=== PATIENT | male | born 1975 | race Caucasian/White ===

== ENCOUNTER 2018-07-19 14:00 | Emergency (ER) | payer BC ==
[2018-07-19] MEDS ORDERED: NA CHLORIDE 0.9% 1,000 ML ONE (14:28)
[2018-07-19 14:34] LABS: Absolute Lymphocytes (CBC) 1.3 K/uL (0.7-4.9); Absolute Monocytes 0.8 K/uL (0.1-1.3); Absolute Neutrophil 4.1 K/uL (1.8-8.0); Basophils % 0.8 % (0-1.3); Eosinophils % 1.6 % (0-4.4); Hematocrit 44.7 % (39.6-49.0); Lymphocytes % 20.7 % (15.3-44.8); MPV 10.1 fL (7.6-11.3); Monocytes % 12.7 % (3.3-12.3)
--- NOTE | 2018-07-19 14:36 | RAD REPORT ---
EXAM DESCRIPTION: CT - Head Brain Wo Cont - 07/19/2018 2:29 pm CLINICAL HISTORY: CONFUSED Headache, drowsiness COMPARISON: No comparisons TECHNIQUE: All CT scans are performed using dose optimization technique as appropriate and may inclu de automated exposure control or mA/KV adjustment according to patient size. FINDINGS: No intracranial hemorrhage, hydrocephalus or extra-axial fluid collection.No areas of brai n edema or evidence of midline shift. The paranasal sinuses and mastoids are clear. The calvarium is intact. IMPRESSION: No acute intracranial abnormality.
[2018-07-19 14:37] LABS: Protime INR 1.09
[2018-07-19 14:52] LABS: ALT/SGPT 31 U/L (12-78); AST/SGOT 23 U/L (15-37); Albumin 4.3 g/dL (3.4-5.0); Alkaline Phosphatase 70 U/L (45-117); BUN Blood Urea Nitrogen 8 mg/dL (7-18); Bicarbonate 22 mmol/L (21-32); Bilirubin Direct < 0.1 mg/dL (0-0.2); Bilirubin Total 0.3 mg/dL (0.2-1.0); Glucose Level 117 mg/dL (74-106); Protein, Total 8.2 g/dL (6.4-8.2); Sodium Level 133 mmol/L (136-145)
[2018-07-19 15:50] LABS: Urine Blood NEGATIVE (NEG); Urine Glucose NEGATIVE (NEG); Urine Protein NEGATIVE (NEG)
[2018-07-19 15:53] LABS: Barbiturates NEGATIVE (NEGATIVE); Benzodiazepines NEGATIVE (NEGATIVE); Cocaine NEGATIVE (NEGATIVE); METHAMPHETAM NEGATIVE (NEGATIVE); Methadone NEGATIVE (NEGATIVE); Opiates NEGATIVE (NEGATIVE); Phencyclidine NEGATIVE (NEGATIVE); THC Cannibis NEGATIVE (NEGATIVE)
[2018-07-19] MEDS ORDERED: FOLIC ACID 1 MG, MULTIVITAMINS INJ 10 ML, THIAMINE HCL 100 MG in NA CHLORIDE 0.9% 1,000 ML IV ONE (16:00)
--- NOTE | 2018-07-19 17:31 | EDPHYS ---
Physician Documentation [facility] Name: Maurizio Frias Age: 43 yrs Sex: Male : 1975 Arrival Date: 07/19/2018 Time: 14:04 Bed 7 Private MD: ED Physician Martinez Vogt HPI: 07/19 14:54 This 43 yrs old Male presents to ER via EMS with complaints of AMS. rn 14:54 The patient presents with dysphasia. The patient presents with confusion. Onset: The rn symptoms/episode began/occurred just prior to arrival. Possible causes: alcohol. Current symptoms: In the emergency department the patient's symptoms have improved. It is unknown whether or not the patient has had similar symptoms in the past. EMS reports was at a pub, was served 1-2 drinks, then servers stated noticed appeared much more intoxicated and slurred speech/incoherent than expected, patient denies head injury/fall/drug use. Reports drinks beer frequently and recently having issues with his mother. Denies suicide attempt or ideation. EMS reports improving slowly and normal vitals. . Historical: - Allergies: 14:09 No Known Allergies; tw2 - Home Meds: 14:09 metoprolol tartrate Oral [Active]; Lisinopril Oral [Active]; Simvastatin Oral [Active]; tw2 - PMHx: 14:09 Hyperlipidemia; Hypertension; tw2 - Immunization history:: Adult Immunizations. - Social history:: Smoking status: . - Ebola Screening: : Patient denies travel to an Ebola-affected area in the 21 days before illness onset. - Family history:: not pertinent. - Hospitalizations: : No recent hospitalization is reported. ROS: 14:54 Constitutional: Negative for fever, chills, and weight loss, Eyes: Negative for injury, rn pain, redness, and discharge, ENT: Negative for injury, pain, and discharge, Neck: Negative for injury, pain, and swelling, Cardiovascular: Negative for chest pain, palpitations, and edema, Respiratory: Negative for shortness of breath, cough, wheezing, and pleuritic chest pain, Abdomen/GI: Negative for abdominal pain, nausea, vomiting, diarrhea, and constipation, MS/Extremity: Negative for injury and deformity, Skin: Negative for injury, rash, and discoloration, Neuro: Negative for headache, weakness, numbness, tingling, and seizure. Exam: 15:02 Constitutional: This is a well developed, well nourished patient who is awake, alert, rn and in no acute distress. Head/Face: Normocephalic, atraumatic. Eyes: Pupils equal round and reactive to light, extra-ocular motions intact. Lids and lashes normal. Conjunctiva and sclera are non-icteric and not injected. Cornea within normal limits. Periorbital areas with no swelling, redness, or edema. ENT: MMM Cardiovascular: Regular rate and rhythm with a normal S1 and S2. No pulse deficits. Respiratory: Lungs have equal breath sounds bilaterally, clear to auscultation. No increased work of breathing, no retractions or nasal flaring. Abdomen/GI: soft, non-tender Skin: Warm, dry Neuro: Awake and alert, GCS 15, oriented to person, place, time, and situation. Cranial nerves II-XII grossly intact. Motor strength 5/5 in all extremities. Sensory grossly intact. Cerebellar exam normal. Slurred slow speech. SOunds intoxicated. Vital Signs: 14:06 BP 119 / 83; Pulse 73; Resp 17; Temp 97.9(TE); Pulse Ox 95% on R/A; Weight 136.08 kg tw2 (R); Height 5 ft. 5 in. (165.10 cm); Pain 0/10; 15:10 BP 118 / 85; Pulse 72; Resp 17; Pulse Ox 97% ; bp 16:50 BP 106 / 69; Pulse 72; Resp 17; Pulse Ox 97% on R/A; tw2 17:38 BP 96 / 68; Pulse 76; Resp 14; Temp 98; Pulse Ox 97% ; bp 14:06 Body Mass Index 49.92 (136.08 kg, 165.10 cm) tw2 MDM: 14:05 Patient medically screened. rn 16:19 Differential Diagnosis: CVA, electrolyte abnormality, alcohol intoxication, volume rn depletion. Data reviewed: vital signs, nurses notes, lab test result(s), EKG, radiologic studies, and as a result, I will discharge patient. Counseling: I had a detailed discussion with the patient and/or guardian regarding: the historical points, exam findings, and any diagnostic results supporting the discharge/admit diagnosis, lab results, radiology results, the need for outpatient follow up, to return to the emergency department if symptoms worsen or persist or if there are any questions or concerns that arise at home. Response to treatment: the patient's symptoms have mildly improved after treatment. ED course: Pt with ETOH of 400, will allow to sober up and dc home after that. . 17:30 ED course: Pt more sober, has ride home that is here, recommend decreasing ETOH intake, rn and has f/u with Dr. Louise on sunday.. 07/19 14:05 Order name: Acetaminophen; Complete Time: 15:22 07/19 14:05 Order name: Basic Metabolic Panel; Complete Time: 15:22 07/19 14:05 Order name: CBC with Diff rn 07/19 14:05 Order name: ETOH Level; Complete Time: 15:22 07/19 14:05 Order name: Hepatic Function; Complete Time: 15:22 07/19 14:05 Order name: PT-INR; Complete Time: 14:54 07/19 14:05 Order name: Ptt, Activated; Complete Time: 14:54 07/19 14:05 Order name: Salicylate; Complete Time: 15:22 07/19 14:05 Order name: Urine Drug Screen; Complete Time: 17:32 07/19 14:05 Order name: EKG; Complete Time: 14:10 07/19 14:05 Order name: CT Head Brain wo Cont; Complete Time: 15:22 07/19 15:36 Order name: Urine Dipstick--Ancillary (enter results); Complete Time: 17:32 07/19 14:05 Order name: EKG - Nurse/Tech; Complete Time: 14:10 07/19 14:05 Order name: IV Saline Lock; Complete Time: 14:10 07/19 14:05 Order name: Labs collected and sent; Complete Time: 14:16 07/19 14:05 Order name: Urine Dipstick-Ancillary (obtain specimen); Complete Time: 16:10 rn Administered Medications: 14:16 Drug: NS 0.9% 1000 ml Route: IV; Rate: 1000 ml; Site: right antecubital; tw2 15:30 Follow up: IV Status: Completed infusion; IV Intake: 1000ml bp 16:08 Drug: Banana Bag - (NS 0.9% 1000 ml, foLIC Acid 1 mg, Thiamine 100 mg, Multivitamin 1 tw2 amp) Route: IV; Rate: calculated rate; Site: right antecubital; 17:40 Follow up: IV Status: Completed infusion; IV Intake: 1000ml bp Disposition: 07/19/18 17:31 Discharged to Home. Impression: Alcohol use, unspecified with intoxication. - Condition is Stable. - Discharge Instructions: Alcohol Intoxication. - Medication Reconciliation Form, Thank You Letter, Antibiotic Education, Prescription Opioid Use form. - Follow up: Private Physician; When: As needed; Reason: Recheck today's complaints, Re-evaluation by your physician. - Problem is new. - Symptoms have improved. Signatures: Dispatcher [employer] EDMS Martinez Vogt MD MD rn Wise, Tara, RN RN tw2 Ez Dickerson RN RN bp Corrections: (The following items were deleted from the chart) 15:02 14:54 Constitutional: Negative for fever, chills, and weight loss, rn rn 17:46 17:31 07/19/2018 17:31 Discharged to Home. Impression: Alcohol use, unspecified with bp intoxication. Condition is Stable. Forms are Medication Reconciliation Form, Thank You Letter, Antibiotic Education, Prescription Opioid Use. Follow up: Private Physician; When: As needed; Reason: Recheck today's complaints, Re-evaluation by your physician. Problem is new. Symptoms have improved. rn
--- NOTE | 2018-07-19 17:31 | ER ---
Nurse's Notes [facility] Name: Maurizio Frias Age: 43 yrs Sex: Male : 1975 Arrival Date: 07/19/2018 Time: 14:04 Bed 7 Private MD: Diagnosis: Alcohol use, unspecified with intoxication Presentation: 07/19 13:58 Presenting complaint: EMS states: pt was at [place], staff reports giving him 1 beer, tw2 then she gave him another one, he just kourtney went limp and started slurring speech, negative neuro exam, vs stable, 20g RIGHT ac, NS bolus going. Transition of care: patient was not received from another setting of care. Onset of symptoms was July 19, 2018. Risk Assessment: Do you want to hurt yourself or someone else? Patient reports no desire to harm self or others. Initial Sepsis Screen: Does the patient meet any 2 criteria? No. Patient's initial sepsis screen is negative. Does the patient have a suspected source of infection? No. Patient's initial sepsis screen is negative. Care prior to arrival: IV initiated. 20 GA, in the right antecubital area. 13:58 Method Of Arrival: EMS: [facility] tw2 13:58 Acuity: KATLYN 3 tw2 Triage Assessment: 14:07 General: Appears in no apparent distress. obese, Behavior is calm, cooperative. Pain: tw2 Denies pain. EENT: No signs and/or symptoms were reported regarding the EENT system. Neuro: Level of Consciousness is awake, alert, obeys commands, Oriented to person, place, situation, Enterostomal Therapy Nurse are equal bilaterally Moves all extremities. Full function Speech is slurred, Facial symmetry appears normal. Cardiovascular: Heart tones S1 S2 Capillary refill < 3 seconds Patient's skin is warm and dry. Respiratory: Airway is patent Respiratory effort is even, unlabored, Respiratory pattern is regular, symmetrical, Breath sounds are clear bilaterally. GI: No signs and/or symptoms were reported involving the gastrointestinal system. Abdomen is round non-distended, obese, Bowel sounds present X 4 quads. : No signs and/or symptoms were reported regarding the genitourinary system. Derm: No signs and/or symptoms reported regarding the dermatologic system. Musculoskeletal: Range of motion: intact in all extremities. Historical: - Allergies: 14:09 No Known Allergies; tw2 - Home Meds: 14:09 metoprolol tartrate Oral [Active]; Lisinopril Oral [Active]; Simvastatin Oral [Active]; tw2 - PMHx: 14:09 Hyperlipidemia; Hypertension; tw2 - Immunization history:: Adult Immunizations. - Social history:: Smoking status: . - Ebola Screening: : Patient denies travel to an Ebola-affected area in the 21 days before illness onset. - Family history:: not pertinent. - Hospitalizations: : No recent hospitalization is reported. Screenin:10 Abuse screen: Denies threats or abuse. Nutritional screening: No deficits noted. tw2 Tuberculosis screening: No symptoms or risk factors identified. Fall Risk None identified. Assessment: 14:09 Reassessment: see triage assessment. tw2 15:36 Reassessment: waiting for Banana bag from pharmacy at this time. tw2 15:42 Reassessment: Patient appears in no apparent distress at this time. No changes from tw2 previously documented assessment. Patient and/or family updated on plan of care and expected duration. Pain level reassessed. Patient is alert, oriented x 3, equal unlabored respirations, skin warm/dry/pink. 16:50 Reassessment: Patient appears in no apparent distress at this time. No changes from tw2 previously documented assessment. Patient and/or family updated on plan of care and expected duration. Pain level reassessed. Patient is alert, oriented x 3, equal unlabored respirations, skin warm/dry/pink. 17:36 Reassessment: PT AFFIRMS FAMILY EN ROUTE FOR TRANSPORT. AOx3, AMBULATORY WITH STEADY bp GAIT AND NO ATAXIA. PT PLACED IN LOBBY AND INSTRUCTED TO REMAIN AND WAIT FOR RIDE. Vital Signs: 14:06 BP 119 / 83; Pulse 73; Resp 17; Temp 97.9(TE); Pulse Ox 95% on R/A; Weight 136.08 kg tw2 (R); Height 5 ft. 5 in. (165.10 cm); Pain 0/10; 15:10 BP 118 / 85; Pulse 72; Resp 17; Pulse Ox 97% ; bp 16:50 BP 106 / 69; Pulse 72; Resp 17; Pulse Ox 97% on R/A; tw2 17:38 BP 96 / 68; Pulse 76; Resp 14; Temp 98; Pulse Ox 97% ; bp 14:06 Body Mass Index 49.92 (136.08 kg, 165.10 cm) tw2 ED Course: 13:58 Bed in low position. Call light in reach. Side rails up X2. monitoring analyst on. Pulse tw2 ox on. NIBP on. 14:04 Patient arrived in ED. tw2 14:05 Martinez Vogt MD is Attending Physician. rn 14:06 Triage completed. tw2 14:06 Arm band placed on. tw2 14:07 Clarita Bai, RN is Primary Nurse. tw2 14:10 EKG done, by manufacturing engineering technologist. reviewed by Martinez Vogt MD. sm3 14:16 Maintain EMS IV. Dressing intact. Good blood return noted. Site clean \T\ dry. Gauge \T\ tw 2 site: 20 g RIGHT ac. 14:18 Initial lab(s) drawn, by me, sent to lab. jb1 14:40 CT Head Brain wo Cont In Process Unspecified. EDMS 17:39 No provider procedures requiring assistance completed. IV discontinued, intact, bp bleeding controlled, No redness/swelling at site. Pressure dressing applied. Administered Medications: 14:16 Drug: NS 0.9% 1000 ml Route: IV; Rate: 1000 ml; Site: right antecubital; tw2 15:30 Follow up: IV Status: Completed infusion; IV Intake: 1000ml bp 16:08 Drug: Banana Bag - (NS 0.9% 1000 ml, foLIC Acid 1 mg, Thiamine 100 mg, Multivitamin 1 tw2 amp) Route: IV; Rate: calculated rate; Site: right antecubital; 17:40 Follow up: IV Status: Completed infusion; IV Intake: 1000ml bp Intake: 15:30 IV: 1000ml; Total: 1000ml. bp 17:40 IV: 1000ml; Total: 2000ml. bp Outcome: 17:31 Discharge ordered by . rn 17:38 Discharged to home via wheelchair, with family. bp 17:38 Condition: stable 17:38 Discharge instructions given to patient, Instructed on discharge instructions, follow up and referral plans. Demonstrated understanding of instructions, follow-up care. 17:46 Patient left the ED. bp Signatures: Dispatcher [employer] EDMS Kem Viveros jb1 Martinez Vogt MD MD rn Wise, Tara, RN RN tw2 Ez Dickerson RN RN bp Lizz Fleming sm3 Corrections: (The following items were deleted from the chart) 17:39 17:36 Reassessment: PT AFFIRMS FAMILY EN ROUTE FOR TRANSPORT. AOx3, AMBULATORY WITH bp STEADY GAIT AND NO ATAXIA bp
--- NOTE | 2018-07-20 09:03 | EKG ---
Test Date: 2018-07-19 Test Time: 14:10:20 Stitcher Hand: HAILEY MEASUREMENT RESULTS: Intervals: Rate: 72 WI: 212 QRSD: 104 QT: 406 QTc: 444 [place]: P: 13 WI: 212 QRS: -25 T: 41 INTERPRETIVE STATEMENTS: Sinus rhythm with 1st degree AV block Moderate voltage criteria for LVH, may be normal variant Borderline ECG No previous ECG available for comparison Electronically Signed On 07-20-18 09:00:57 CDT by Jason Majano
== END 2018-07-19 17:46 | disposition home or self-care (01) ==
LOC: ER 14:00
DX: F10.929 Alcohol use, unspecified with intoxication, unspecified (principal); E78.5 Hyperlipidemia, unspecified; I10 Essential (primary) hypertension
CPT/HCPCS: 36415; 70450; 80048; 80076; 80307; 80320; 80329; 81003; 85025; 85610; 85730; 93005; 96361; 96365; 96366; 99284; J3411; J7030

== ENCOUNTER 2022-09-22 08:30 | Inpatient (IN) | payer BC, SELFPAY ==
[2022-09-22] MEDS ORDERED: NITROGLYCERIN 1 GM PKT TD ONE (08:38)
[2022-09-22] MEDS ORDERED: FUROSEMIDE 40 MG/4 ML VIAL ONE (08:39)
[2022-09-22 08:45] LABS: Absolute Lymphocytes (CBC) 1.9 K/uL (0.7-4.9); Hematocrit 38.4 % (39.6-49.0); Lymphocytes % 8.8 % (15.3-44.8); MCV 77.7 fL (80-100); MPV 8.7 fL (7.6-11.3); Platelets 433 thou/uL (152-406); RBC Red Blood Cell Count 4.94 M/uL (4.33-5.43)
[2022-09-22 08:51] LABS: Protime INR 1.04
[2022-09-22 09:05] LABS: Albumin 4.3 g/dL (3.4-5.0); Bilirubin Direct 0.1 mg/dL (0-0.2); Bilirubin Indirect, Calculated 0.3 mg/dL (0.2-0.8); Bilirubin Total 0.4 mg/dL (0.2-1.0); Magnesium 1.6 mg/dL (1.6-2.4); Potassium 4.3 mEq/L (3.5-5.1)
--- NOTE | 2022-09-22 09:05 | RAD REPORT ---
EXAM DESCRIPTION: RAD - Chest Single View - 09/22/2022 8:51 am CLINICAL HISTORY: DYSPNEA COMPARISON: No comparisons FINDINGS: Lines: None. Lungs: Diffuse vascular engorgement and interstitial and airspace disease . Pleural: No significant pleural effusions or pneumothorax. Cardiac: Cardiomegaly appear Mediastinum: Within normal limits. Bones: No acute fractures. Other: None IMPRESSION: Widespread pulmonary opacities most likely representing pulmonary edema.
[2022-09-22 09:07] LABS: Troponin High Sensitivity 121.1 pg/mL (<58.9)
[2022-09-22 09:41] LABS: Arterial Blood Carboxyhemoglob 0.8 % (0-1.5); Blood Gas Oxyhemoglobin 83.5 % (94-97); Blood O2 Saturation 85.2 % (92-98.5)
--- NOTE | 2022-09-22 09:46 | ER ---
Nurse's Notes [facility] Name: Maurizio Frias Age: 47 yrs Sex: Male : 1975 Arrival Date: 09/22/2022 Time: 08:29 Bed 3 Private MD: Diagnosis: Hypoxic respiratory failure;Pulmonary edema Presentation: 09/22 08:32 Chief complaint: EMS states: 2 weeks SOB, showed up to work today and SOB got severe, iw his mother states over past week he gained weight , pt was 59% RA, was placed on CPAP per EMS up to 68%. Coronavirus screen: Client presents with at least one sign or symptom that may indicate coronavirus-19. Ebola Screen: Patient negative for fever greater than or equal to 101.5 degrees Fahrenheit, and additional compatible Ebola Virus Disease symptoms Patient denies exposure to infectious person. Patient denies travel to an Ebola-affected area in the 21 days before illness onset. No symptoms or risks identified at this time. Risk Assessment: Do you want to hurt yourself or someone else? Patient reports no desire to harm self or others. 08:32 Method Of Arrival: EMS: [facility] iw 08:32 Acuity: KATLYN 1 iw 08:34 Onset of symptoms was September 22, 2022. iw 08:35 Initial Sepsis Screen: Does the patient meet any 2 criteria? RR > 20 per min. HR > 90 iw bpm. Does the patient have a suspected source of infection?. Triage Assessment: 08:35 General: Behavior is anxious. Respiratory: Onset: The symptoms/episode began/occurred iw this morning. Historical: - Allergies: 08:45 No Known Allergies; iw - Home Meds: 08:33 amlodipine-benazepril 5-20 mg oral capsule 1 cap daily [Active]; chlorthalidone 50 mg ap3 Oral tablet 1 tab daily [Active]; carvedilol 25 mg oral tablet 1 tab 2 times per day [Active]; - PMHx: 08:34 Hyperlipidemia; Hypertension; iw - Immunization history:: Adult Immunizations unknown. - Social history:: Smoking status: . Screenin:[address] [facility] ED Fall Risk Assessment (Adult) Score/Fall Risk Level 0 - 2 = Low Risk. Abuse iw screen: Denies threats or abuse. Denies injuries from another. Nutritional screening: No deficits noted. Tuberculosis screening: No symptoms or risk factors identified. Assessment: 08:32 General: Appears distressed, uncomfortable, obese, Behavior is cooperative. Pain: iw Denies pain. Neuro: Level of Consciousness is awake, alert, obeys commands, Oriented to person, place, time, situation, Moves all extremities. Cardiovascular: Rhythm is sinus tachycardia. Respiratory: Reports shortness of breath at rest on exertion labored breathing Airway Respiratory effort is labored, using tripod position, Respiratory pattern is symmetrical, tachypnea Breath sounds with crackles bilaterally. the patient has severe shortness of breath. GI: Abdomen is round obese. : No signs and/or symptoms were reported regarding the genitourinary system. Derm: Skin is intact, Skin is diaphoretic. Musculoskeletal: Range of motion: intact in all extremities. 08:46 General: Appears. iw 08:51 Reassessment: pt symptoms have improved but not resolved, 93% on BiPAP, pt skin is dry, iw denies chest pain, requesting to take off mask, pt still with labored breathing, educated on need to keep mask on at this time, pt denies feeling claustrophobic. 09:36 Reassessment: Patient appears in no apparent distress at this time. pt remains on iw BiPAP, 400 ml urine out per urinal. 10:20 Reassessment: mother at bedside, pt remains on BiPAP. iw 11:05 Reassessment: BiPAP set at 14/6 80% FiO2 by RT. iw 12:32 Reassessment: pt standing up at bedside, assisted with urinal, 300 ml out , remains on iw BiPAP. Vital Signs: 08:31 BP 151 / 98; Pulse 119; Resp 35; Temp 97(TE); Pulse Ox 79% on BiPAP; iw 08:51 BP 153 / 94; Pulse 110; Resp 32; Pulse Ox 93% on BiPAP; iw 10:19 BP 135 / 84; Pulse 103; Resp 30 S; Pulse Ox 100% on BiPAP; iw 11:06 BP 130 / 89; Pulse 100; Resp 26; Pulse Ox 99% on BiPAP; iw Vitals: 09:03 Cardiac Rhythm Assessment Sinus tach. iw ED Course: 08:29 Patient arrived in ED. aa5 08:29 Ramon Barbosa MD is Attending Physician. rt 08:32 Arm band placed on. iw 08:34 Triage completed. iw 08:35 Initial lab(s) drawn, by me, sent to lab. Inserted saline lock: 20 gauge in right iw antecubital area, using aseptic technique. Blood collected. 08:38 Ely Cabrera, RN is Primary Nurse. iw 08:48 Patient has correct armband on for positive identification. Bed in low position. Call iw light in reach. Side rails up X2. Provided Education on: BiPAP. 08:53 XRAY Chest (1 view) In Process Unspecified. EDMS 09:00 Inserted saline lock: 22 gauge in left wrist, using aseptic technique. aa5 09:46 Fab Louise MD is Hospitalizing Provider. rt 10:12 SARS RAPID Sent. iw 13:02 No provider procedures requiring assistance completed. Patient admitted, IV remains in iw place. Administered Medications: 08:31 Drug: Furosemide IVP 40 mg Route: IVP; Site: right antecubital; iw 12:30 Follow up: Urine output 1200 ml; Response: No adverse reaction iw 08:46 Drug: Nitroglycerin Transdermal Ointment 2 % 1 inches Route: Transdermal; Site: aa5 anterior chest wall; Medication: 11:04 VIS not applicable for this client. iw Output: 12:30 Urine: 1200ml; Total: 1200ml. iw 13:02 Urine: 1200ml (Voided); Total: 2400ml. iw Outcome: 09:46 Decision to Hospitalize by Provider. rt 13:03 Admitted to ICU accompanied by nurse, accompanied by tech, family with patient, via iw stretcher, room 6, on monitor, with chart, Report called to EMELI Vizcarra 13:03 Condition: improved 13:03 Discharge instructions given to patient, family, Instructed on the need for admit. 13:31 Patient left the ED. iw Signatures: Dispatcher [employer] EDMS Ely Cabrera RN EMELI iw Neema Yepez RN RN aa5 Caitlyn Loco RN RN ap3 Ramon Barbosa MD MD rt Corrections: (The following items were deleted from the chart) 08:51 08:31 BP 151 / 98; Pulse 119bpm; Resp 35bpm; Pulse Ox 79% BiPAP; iw iw 11:12 11:06 Pulse 100bpm; Resp 26bpm; Pulse Ox 99% BiPAP; iw iw
--- NOTE | 2022-09-22 09:46 | EDPHYS ---
Physician Documentation [facility] Name: Maurizio Frias Age: 47 yrs Sex: Male : 1975 Arrival Date: 09/22/2022 Time: 08:29 Bed 3 Private MD: ED Physician Ramon Barbosa HPI: 09/22 08:42 This 47 yrs old Male presents to ER via EMS with complaints of Respiratory Distress. rt 08:42 Patient presents to the ED with respiratory distress. Patient has had a shortness of rt breath for the past about 2 weeks, but significantly worsened overnight. Denies any chest pain. EMS does report that he was very diaphoretic, stating that his oxygen saturations were in the mid 50s on room air, placed patient on CPAP. No meds were given. Denies other acute complaints. Symptoms are severe in severity, no other aggravating or alleviating factors.. Historical: - Allergies: 08:45 No Known Allergies; iw - Home Meds: 08:33 amlodipine-benazepril 5-20 mg oral capsule 1 cap daily [Active]; chlorthalidone 50 mg ap3 Oral tablet 1 tab daily [Active]; carvedilol 25 mg oral tablet 1 tab 2 times per day [Active]; - PMHx: 08:34 Hyperlipidemia; Hypertension; iw - Immunization history:: Adult Immunizations unknown. - Social history:: Smoking status: . ROS: 08:43 Constitutional: Negative for fever, chills, and weight loss, Abdomen/GI: Negative for rt abdominal pain, nausea, vomiting, diarrhea, and constipation, MS/Extremity: Negative for injury and deformity, Neuro: Negative for headache, weakness, numbness, tingling, and seizure, Psych: Negative for depression, anxiety, suicide ideation, homicidal ideation, and hallucinations. 08:43 Cardiovascular: Positive for edema, Negative for chest pain. 08:43 Respiratory: Positive for cough, shortness of breath. 08:43 Skin: Positive for diaphoresis, Negative for rash. Exam: 08:43 Head/Face: Normocephalic, atraumatic. Chest/axilla: Normal chest wall appearance and rt motion. Nontender with no deformity. No lesions are appreciated. Cardiovascular: Regular rate and rhythm with a normal S1 and S2. No gallops, murmurs, or rubs. Normal PMI, no JVD. No pulse deficits. Abdomen/GI: Soft, non-tender, with normal bowel sounds. No distension or tympany. No guarding or rebound. No evidence of tenderness throughout. Neuro: Awake and alert, GCS 15, oriented to person, place, time, and situation. Cranial nerves II-XII grossly intact. Motor strength 5/5 in all extremities. Sensory grossly intact. Cerebellar exam normal. Normal gait. Psych: Awake, alert, with orientation to person, place and time. Behavior, mood, and affect are within normal limits. 08:43 Constitutional: The patient appears diaphoretic, in obvious distress. 08:43 ECG was reviewed by the Attending Physician. 08:43 Respiratory: Crackles heard on all lung garcia, severe respiratory distress noted.. 08:43 Musculoskeletal/extremity: 3+ pitting bilateral lower extremity edema. 08:43 Skin: Pale, diaphoretic. 09:46 ECG was reviewed by the Attending Physician. rt Vital Signs: 08:31 BP 151 / 98; Pulse 119; Resp 35; Temp 97(TE); Pulse Ox 79% on BiPAP; iw 08:51 BP 153 / 94; Pulse 110; Resp 32; Pulse Ox 93% on BiPAP; iw 10:19 BP 135 / 84; Pulse 103; Resp 30 S; Pulse Ox 100% on BiPAP; iw 11:06 BP 130 / 89; Pulse 100; Resp 26; Pulse Ox 99% on BiPAP; iw MDM: 08:29 Patient medically screened. rt 09:46 Differential diagnosis: Pulmonary edema, pneumonia, pneumothorax, pulmonary embolism. rt Antibiotic administration: Not indicated, the patient does not have an appreciated infiltrate. Data reviewed: vital signs, nurses notes, lab test result(s), EKG, radiologic studies. Consideration of Admission/Observation Patient was admitted/placed on observation. Management of patient was discussed with the following: Primary Care Provider: Agrees to admit patient. I considered the following discharge prescriptions or medication management in the emergency department Medications were administered in the Emergency Department. See MAR. Independent interpretation of the following test(s) in the Emergency Department X-Ray: My interpretation is Pulmonary edema seen on interpretation of x-ray images. Test considered but Not performed: CT: Symptoms most likely consistent with pulmonary edema, very low suspicion for pulmonary embolism, CT angiogram not indicated. Care significantly affected by the following chronic conditions: Hypertension. Counseling: I had a detailed discussion with the patient and/or guardian regarding: the historical points, exam findings, and any diagnostic results supporting the discharge/admit diagnosis, lab results, radiology results, the need for further work-up and treatment in the hospital. Response to treatment: the patient's symptoms have markedly improved after treatment. 09/22 08:31 Order name: Basic Metabolic Panel; Complete Time: 09:13 rt 09/22 08:31 Order name: CBC with Diff rt 09/22 08:31 Order name: LFT's; Complete Time: 09:13 rt 09/22 08:31 Order name: Magnesium; Complete Time: 09:13 rt 09/22 08:31 Order name: NT PRO-BNP; Complete Time: 09:13 rt 09/22 08:31 Order name: Troponin HS; Complete Time: 09:13 rt 09/22 08:31 Order name: ABG rt 09/22 08:31 Order name: Lactate w/ 2H reflex if indic. rt 09/22 08:31 Order name: Protime (+inr); Complete Time: 09:13 rt 09/22 08:31 Order name: Ptt, Activated; Complete Time: 09:13 rt 09/22 08:33 Order name: Lactate w/ 2H reflex if indic.; Complete Time: 09:13 EDMS 09/22 08:40 Order name: Blood Culture Adult (2) iw 09/22 09:34 Order name: SARS RAPID rt 09/22 10:49 Order name: CBC Smear Scan EDMS 09/22 08:31 Order name: XRAY Chest (1 view); Complete Time: 09:13 rt 09/22 08:31 Order name: BIPAP rt 09/22 08:31 Order name: EKG; Complete Time: 08:32 rt 09/22 09:53 Order name: CONS Physician Consult EDMS 09/22 08:31 Order name: Cardiac monitoring; Complete Time: 08:38 rt 09/22 08:31 Order name: EKG - Nurse/Tech; Complete Time: 08:43 rt 09/22 08:31 Order name: IV Saline Lock; Complete Time: 08:38 rt 09/22 08:31 Order name: Labs collected and sent; Complete Time: 08:38 rt 09/22 08:31 Order name: O2 Per Protocol; Complete Time: 08:38 rt 09/22 08:31 Order name: O2 Sat Monitoring; Complete Time: 08:38 rt 09/22 08:31 Order name: Accucheck; Complete Time: 08:38 rt 09/22 08:31 Order name: IV Saline Lock - Large Bore; Complete Time: 08:38 rt 09/22 08:31 Order name: Vital Signs; Complete Time: 08:38 rt EC:43 Rate is 115 beats/min. Rhythm is regular, Sinus tachycardia with No ectopy, Motion rt artifact limits interpretation, LVH with repolarization abnormalities present. Left axis deviation noted. MD interval is normal. QRS interval is normal. QT interval is normal. No Q waves. 09:46 Rate is 110 beats/min. Rhythm is regular, Sinus tachycardia with No ectopy, LVH with rt repolarization abnormality. Left axis deviation noted. MD interval is normal. QRS interval is normal. QT interval is normal. No Q waves. Interpreted by me. Administered Medications: 08:31 Drug: Furosemide IVP 40 mg Route: IVP; Site: right antecubital; iw 12:30 Follow up: Urine output 1200 ml; Response: No adverse reaction iw 08:46 Drug: Nitroglycerin Transdermal Ointment 2 % 1 inches Route: Transdermal; Site: aa5 anterior chest wall; Disposition: 09:46 Critical Care:. rt Disposition Summary: 09/22/22 09:46 Hospitalization Ordered Hospitalization Status: Inpatient Admission rt Provider: Fab Louise rt Location: Intensive Care Unit rt Condition: Guarded rt Problem: new rt Symptoms: have improved rt Bed/Room Type: Standard rt Room Assignment: 6-(09/22/22 12:40) dw Diagnosis - Hypoxic respiratory failure rt - Pulmonary edema rt Forms: - Medication Reconciliation Form rt - SBAR form rt Critical care time excluding procedures: 09:46 Critical care time: Bedside Care: 30 minutes, Consultation: 10 minutes. Total time: 40 rt minutes Signatures: Dispatcher [employer] Hien Monique RN RN dw Williams, Irene, RN RN iw Calderon, Audri, RN RN aa5 Caitlyn Loco RN RN ap3 Ramon Barbosa MD MD rt Corrections: (The following items were deleted from the chart) 12:40 09:46 rt dw
[2022-09-22 10:28] LABS: SARS-CoV-2 Antigen Rapid Res Negative (Negative)
[2022-09-22 10:48] LABS: Anisocytosis 2+; Blood Morphology Comment NOTED (NOT SEEN); Platelet Estimate ADEQ; White Blood Cell Scan OK (OK)
--- NOTE | 2022-09-22 15:13 | P.HP ---
Certification for Inpatient Patient admitted to: Inpatient Practitioner: I am a practitioner with admitting privileges, knowledge of patient current condition, hospital course, and medical plan of care. Services: Services provided to patient in accordance with Admission requirements found in Title 42 Section 412.3 of the Code of Federal Regulations Patient History Date of Service: 09/22/22 Primary Care Provider: Aspen Reason for admission: acute chf exacerbation History of Present Illness: Patient has been having some shortness of breath He has some swelling in his legs. The patient was very short of breath this morning. The patient called ems Was found to have a spO2 in the 50% The patient was put on a bipap and brought to the ER. He was given lasix. Diueised well.. Is comfortable on a bipap at this pointm Allergies No Known Allergies Allergy (Unverified 09/22/22 10:07) Home Medications: Carvedilol [Coreg] 12.5 mg PO BID 09/22/22 Chlorthalidone 1 tab PO DAILY 09/22/22 Review of Systems 10-point ROS is otherwise unremarkable Respiratory: Shortness of Breath Cardiovascular: Edema Physical Examination - Vital Signs Temperature: 97 F Blood Pressure: 130/89 Pulse: 100 Respirations: 26 Pulse Ox (%): 80 - Physical Exam General: Alert, In no apparent distress HEENT: Atraumatic, PERRLA, Mucous membr. moist/pink, EOMI, Sclerae nonicteric Neck: Supple, 2+ carotid pulse no bruit, No LAD, Without JVD or thyroid abnormality Respiratory: Crackles/rales Cardiovascular: Regular rate/rhythm, Normal S1 S2, Edema Gastrointestinal: Normal bowel sounds, No tenderness Musculoskeletal: No tenderness Integumentary: No rashes Neurological: Normal gait, Normal speech, Normal strength at 5/5 x4 extr, Normal tone, Normal affect Lymphatics: No axilla or inguinal lymphadenopathy - Studies Laboratory Data (last 24 hrs) 09/22/22 09/22/22 09/22/22 08:35 08:35 08:35 WBC 21.80 H Hgb 11.1 L Hct 38.4 L Plt Count 433 H PT 11.4 INR 1.04 APTT 30.8 Sodium 133 L Potassium 4.3 BUN 16 Creatinine 1.20 Glucose 205 H Magnesium 1.6 Total Bilirubin 0.4 AST 21 ALT 22 Alkaline Phosphatase 81 Assessment and Plan - Problems (Diagnosis) (1) Acute exacerbation of CHF (congestive heart failure) Current Visit: Yes Status: Acute Plan: Will continue cpap and diuresis. Consult to Dr. Salinas. Will check an echocardiogram Qualifiers: Heart failure type: unspecified Qualified Code(s): I50.9 - Heart failure, unspecified (2) Obstructive sleep apnea (adult) (pediatric) Current Visit: Yes Status: Acute Plan: Will need to get his cpap settings. (3) Essential (primary) hypertension Current Visit: Yes Status: Acute Plan: restart his home medications (4) Mixed hyperlipidemia Current Visit: Yes Status: Acute Plan: swiitch from simvastatin to atorvastatin Discharge Plan: Home Plan to discharge in: Greater than 2 days - Advance Directives Does patient have a Living Will: No Does patient have a Durable POA for Healthcare: No - Code Status/Comfort Care Code Status Assessed: Yes Code Status: Full Code Physician Review: Patient Assessed, Agree with Above Assessment and Plan Critical Care: Yes Time Spent Managing Pts Care (In Minutes): 45
[2022-09-22] MEDS: FUROSEMIDE 40 MG/4 ML VIAL IV SCH (18:05)
[2022-09-22] MEDS: ATORVASTATIN 40 MG TAB PO SCH (20:07)
[2022-09-23] MEDS: FUROSEMIDE 40 MG/4 ML VIAL IV SCH ×3 (00:50→16:50)
[2022-09-23] MEDS: CHLORTHALIDONE 25 MG TAB PO SCH (08:21)
[2022-09-23] MEDS: AMLODIPINE 5 MG TAB PO SCH (08:22)
[2022-09-23] MEDS: BENAZEPRIL 20 MG TAB PO SCH (08:23)
[2022-09-23] MEDS ORDERED: CHLORTHALIDONE 25 MG TAB PO SCH (09:00)
[2022-09-23] MEDS ORDERED: CHLORTHALIDONE 50 MG PO SCH (09:00)
[2022-09-23] MEDS ORDERED: FUROSEMIDE 40 MG/4 ML VIAL IV SCH (09:00)
--- NOTE | 2022-09-23 10:00 | CON ---
Date of Consultation: 09/22/2022 Reason For Consultation: CHF exacerbation. History Of Present Illness: This is a 47-year-old male with history of hypertension, no known histor y of cardiac disease, who presented to the hospital with significant shortness of breath, lower extre mity edema. No orthopnea. Denies having any chest pain. Patient was hypoxic upon arrival to the em ergency room and then required BiPAP for a short period of time, and after IV Lasix, the patient stab ilized, admitted to ICU. I saw him by bedside and he definitely still has significant shortness of b reath, but maintaining acceptable oxygen saturation. Past Medical History: Hypertension. Medications: Refer reconciliation sheet for detailed list. Allergies: NO KNOWN DRUG ALLERGIES. Family History: No premature coronary artery disease or cancer. Social History: Does not smoke or drink. Does not use any drugs. Review of Systems: All systems reviewed and they were negative except as mentioned in the HPI. Physical Examination: Vital Signs: Reviewed. Head and Neck: Pupils are equal, reactive to light. Intact eye movements. No JVD. No cervical lym phadenopathy. Neck is supple. Thyroid is not enlarged. Lungs: Crackles bilaterally in both lung garcia. No accessory muscle use or muscle retraction. Heart: Regular rate, rhythm. Tachycardic with S3 gallop. Abdomen: Soft, nontender. Bowel sounds positive. No organomegaly. No masses or hernia. No rigidi ty or rebound. Extremities: Massive edema bilaterally. No clubbing, cyanosis. Intact pulses. Skin: No rashes. Neurologic: Alert, awake, oriented x3. No acute focal deficits appreciated. Investigations: BUN 16, creatinine 1.2. Troponin 121. NT-proBNP is 1032. Hemoglobin is 11.1. Assessment/recommendation: 1.Acute congestive heart failure, unknown status. He denies having any chest pain. Troponin is sli ghtly elevated. The patient is admitted to ICU. Change IV Lasix to 40 mg IV q.8 hours. Monitor BUN , creatinine, electrolytes, and obtain echocardiogram. 2.Elevated troponin. No chest pain. This is probably demand; however, ischemia workup will need to be implemented as the patient never had any history of heart failure before. 3.Hypertension. He is on home medication, and after diuresis, we will re-assess. SR/MODL Voice ID: [id number] Report ID: [id number]
--- NOTE | 2022-09-23 10:53 | P.PN ---
Subjective Date of Service: 09/23/22 Primary Care Provider: Aspen Chief Complaint: acute chf exacerbation Subjective: Improving approx 4lt of diuresis Review of Systems 10-point ROS is otherwise unremarkable Respiratory: SOB with Excertion Physical Examination - Vital Signs Temperature: 98.1 F Blood Pressure: 107/75 Pulse: 107 Respirations: 34 Pulse Ox (%): 93 - Physical Exam General: Alert, In no apparent distress HEENT: Atraumatic, PERRLA, EOMI Neck: Supple, JVD not distended Respiratory: Clear to auscultation bilaterally, Normal air movement Cardiovascular: Regular rate/rhythm, Normal S1 S2 Gastrointestinal: Normal bowel sounds, No tenderness Musculoskeletal: No tenderness Integumentary: No rashes Neurological: Normal speech, Normal tone, Normal affect Lymphatics: No axilla or inguinal lymphadenopathy Assessment And Plan - Current Problems (Diagnosis) (1) Acute exacerbation of CHF (congestive heart failure) Current Visit: Yes Status: Acute Plan: Will continue cpap and diuresis. Consult to Dr. Salinas. Will check an echocardiogram 09/23 Patient is improving. Will restart his carvedilol Qualifiers: Heart failure type: unspecified Qualified Code(s): I50.9 - Heart failure, unspecified (2) Obstructive sleep apnea (adult) (pediatric) Current Visit: Yes Status: Acute Plan: Will need to get his cpap settings. 09/23 patient has not been using his cpap. was diagnoised in 2015. (3) Essential (primary) hypertension Current Visit: Yes Status: Acute Plan: restart his home medications (4) Mixed hyperlipidemia Current Visit: Yes Status: Acute Plan: swiitch from simvastatin to atorvastatin Discharge Plan: Home Plan to discharge in: 24 Hours - Code Status/Comfort Care Code Status Assessed: No Physician Review: Patient Assessed, Agree with Above Assessment and Plan Critical Care: Yes Time Spent Managing PTS Care (In Minutes): 30
[2022-09-23] MEDS: carvediloL 12.5 MG TAB PO SCH ×2 (11:16→21:25)
[2022-09-23] MEDS: ATORVASTATIN 40 MG TAB PO SCH (20:25)
[2022-09-24] MEDS: FUROSEMIDE 40 MG/4 ML VIAL IV SCH ×2 (01:04→09:00)
[2022-09-24 07:18] LABS: Absolute Lymphocytes (CBC) 0.9 K/uL (0.7-4.9); Hematocrit 33.6 % (39.6-49.0); Lymphocytes % 9.6 % (15.3-44.8); MPV 8.3 fL (7.6-11.3); Platelets 282 thou/uL (152-406); RBC Red Blood Cell Count 4.54 M/uL (4.33-5.43)
[2022-09-24 07:33] LABS: Bilirubin Total 0.5 mg/dL (0.2-1.0); Magnesium 1.9 mg/dL (1.6-2.4); Protein, Total 8.8 g/dL (6.4-8.2)
[2022-09-24] MEDS: AMLODIPINE 5 MG TAB PO SCH (08:12)
[2022-09-24] MEDS: carvediloL 12.5 MG TAB PO SCH (08:13)
[2022-09-24] MEDS: CHLORTHALIDONE 25 MG TAB PO SCH (08:13)
[2022-09-24] MEDS: BENAZEPRIL 20 MG TAB PO SCH (08:13)
[2022-09-24] MEDS ORDERED: POTASSIUM 25 MEQ EFFERV TAB PO ONE (11:10)
--- NOTE | 2022-09-24 12:26 | P.PN ---
Subjective Date of Service: 09/24/22 Primary Care Provider: Aspen Chief Complaint: acute chf exacerbation Subjective: Improving approx 4lt of diuresis Review of Systems 10-point ROS is otherwise unremarkable Cardiovascular: Other (dizziness) Physical Examination - Vital Signs Temperature: 97.3 F Blood Pressure: 97/63 Pulse: 98 Respirations: 25 Pulse Ox (%): 93 - Physical Exam General: Alert, In no apparent distress HEENT: Atraumatic, PERRLA, EOMI Neck: Supple, JVD not distended Respiratory: Clear to auscultation bilaterally, Normal air movement Cardiovascular: Regular rate/rhythm, Normal S1 S2 Gastrointestinal: Normal bowel sounds, No tenderness Musculoskeletal: No tenderness Integumentary: No rashes Neurological: Normal speech, Normal tone, Normal affect Lymphatics: No axilla or inguinal lymphadenopathy Assessment And Plan - Current Problems (Diagnosis) (1) Acute exacerbation of CHF (congestive heart failure) Current Visit: Yes Status: Acute Plan: Will continue cpap and diuresis. Consult to Dr. Salinas. Will check an echocardiogram 09/24 decrease his diuresis to qday. Will await cardiac work up till tomorrow. Qualifiers: Heart failure type: unspecified Qualified Code(s): I50.9 - Heart failure, unspecified (2) Obstructive sleep apnea (adult) (pediatric) Current Visit: Yes Status: Acute Plan: Will need to get his cpap settings. 09/23 patient has not been using his cpap. was diagnoised in 2014. (3) Essential (primary) hypertension Current Visit: Yes Status: Acute Plan: restart his home medications (4) Mixed hyperlipidemia Current Visit: Yes Status: Acute Plan: swiitch from simvastatin to atorvastatin Discharge Plan: Home Plan to discharge in: 24 Hours - Code Status/Comfort Care Code Status Assessed: No Physician Review: Patient Assessed, Agree with Above Assessment and Plan Critical Care: No Time Spent Managing PTS Care (In Minutes): 20
[2022-09-24] MEDS ORDERED: ASPIRIN 81 MG CHEWABLE TABLET PO ONE (14:59)
--- NOTE | 2022-09-24 15:33 | EKG ---
Test Date: 2022-09-22 Test Time: 08:38:03 Music Executive: ALP MEASUREMENT RESULTS: Intervals: Rate: 115 [place]: 178 QRSD: 92 QT: 314 QTc: 434 [place]: P: 38 [place]: 178 QRS: -10 T: 74 INTERPRETIVE STATEMENTS: Sinus tachycardia Left ventricular hypertrophy with repolarization abnormality Abnormal ECG Compared to ECG 07/19/2018 14:10:20 Early repolarization now present Sinus rhythm no longer present First degree AV block no longer present Electronically Signed On 09-24-22 15:31:00 CDT by Gustavo Salinas
--- NOTE | 2022-09-24 15:48 | PN ---
Date of Progress Note: 09/24/2022 Subjective: Seen by bedside. His breathing is significantly better. Does not have any chest pain. Has mild orthopnea. Lower extremity edema has improved. Review of Systems: No chest pain. Mild shortness of breath on exertion. No nausea, vomiting, or diarrhea. All other s ystems were reviewed, they were negative. Objective: Vital Signs: Reviewed. Head and Neck: Pupils are equal, reactive to light. Intact eye movements. No JVD. No cervical lym phadenopathy. Neck is supple. Thyroid is not enlarged. Lungs: Clear to auscultation bilaterally. No rhonchi, wheezing, or crackles. No accessory muscle u se. Heart: Regular rate and rhythm. No extra sounds. Abdomen: Soft, nontender. Bowel sounds positive. No organomegaly. No masses or hernia. No rigidi ty or rebound. Extremities: Trace edema. No clubbing or cyanosis. Intact pulses. Skin: No rash. No nodule. Neurologic: Alert, awake, oriented x3. No acute focal deficits appreciated. Lymph Nodes: No cervical or axillary lymphadenopathy. Investigations: Labs reviewed. Assessment And Recommendations: 1.Acute congestive heart failure. Diuresed very well. However, his blood pressure is low now. I w ill stop his carvedilol, benazepril and the chlorthalidone to allow for diuresis with Lasix. Obtain echo tomorrow and reassess. 2.Elevated troponin. Plan for a stress test tomorrow and an echocardiogram. SR/MODL Voice ID: [id number] Report ID: [id number]
[2022-09-24] MEDS: ENOXAPARIN 40 MG/0.4 ML SQ SCH (16:22)
[2022-09-24] MEDS: ATORVASTATIN 40 MG TAB PO SCH (21:18)
[2022-09-24] MEDS: PANTOPRAZOLE 40MG TABLET PO SCH (21:19)
[2022-09-25 06:22] LABS: Absolute Lymphocytes (CBC) 1.1 K/uL (0.7-4.9); Hematocrit 31.8 % (39.6-49.0); Lymphocytes % 10.5 % (15.3-44.8); MCV 74.2 fL (80-100); MPV 8.3 fL (7.6-11.3); Platelets 284 thou/uL (152-406); RBC Red Blood Cell Count 4.28 M/uL (4.33-5.43)
[2022-09-25 06:47] LABS: Albumin 3.7 g/dL (3.4-5.0); Bilirubin Total 0.5 mg/dL (0.2-1.0); Protein, Total 8.3 g/dL (6.4-8.2)
[2022-09-25 06:49] LABS: Magnesium 1.9 mg/dL (1.6-2.4); Potassium 3.3 mEq/L (3.5-5.1)
[2022-09-25] MEDS ORDERED: REGADENOSON 0.4 MG/5 ML SYR IV ONE (07:34)
[2022-09-25] MEDS ORDERED: NA CHLORIDE 0.9% 250 ML IV ONE (08:11)
[2022-09-25] MEDS ORDERED: POTASSIUM 25 MEQ EFFERV TAB PO ONE (09:00)
[2022-09-25] MEDS ORDERED: NA CHLORIDE 0.9% 1,000 ML IV SCH (09:00)
[2022-09-25] MEDS ORDERED: FUROSEMIDE 40 MG/4 ML VIAL IV SCH (09:00)
--- NOTE | 2022-09-25 13:14 | EKG ---
Test Date: 2022-09-22 Test Time: 09:13:40 Leather Stretcher: ALP MEASUREMENT RESULTS: Intervals: Rate: 110 ID: [id number] QRSD: 92 QT: 346 QTc: 468 Champion: P: 33 ID: [id number] QRS: -14 T: 68 INTERPRETIVE STATEMENTS: Sinus tachycardia Left ventricular hypertrophy Anterolateral infarct, age undetermined Abnormal ECG Compared to ECG 09/22/2022 08:38:03 Myocardial infarct finding now present Early repolarization no longer present Electronically Signed On 09-25-22 13:11:43 CDT by Gustavo Salinas
--- NOTE | 2022-09-25 14:38 | P.PN ---
Subjective Date of Service: 09/25/22 Primary Care Provider: Aspen Chief Complaint: acute chf exacerbation Subjective: No new changes approx 4lt of diuresis Review of Systems 10-point ROS is otherwise unremarkable Physical Examination - Vital Signs Temperature: 98.1 F Blood Pressure: 118/75 Pulse: 99 Respirations: 21 Pulse Ox (%): 96 - Physical Exam General: Alert, In no apparent distress HEENT: Atraumatic, PERRLA, EOMI Neck: Supple, JVD not distended Respiratory: Clear to auscultation bilaterally, Normal air movement Cardiovascular: Regular rate/rhythm, Normal S1 S2 Gastrointestinal: Normal bowel sounds, No tenderness Musculoskeletal: No tenderness Integumentary: No rashes Neurological: Normal speech, Normal tone, Normal affect Lymphatics: No axilla or inguinal lymphadenopathy Assessment And Plan - Current Problems (Diagnosis) (1) Acute renal failure Current Visit: Yes Status: Acute Plan: He did recieve a lot of furosemide. He has gotten contrast for the stress test. The patient is being seen by Dr. Pina Qualifiers: Acute renal failure type: unspecified Qualified Code(s): N17.9 - Acute kidney failure, unspecified (2) Acute exacerbation of CHF (congestive heart failure) Current Visit: Yes Status: Acute Plan: Will continue cpap and diuresis. Consult to Dr. Salinas. Will check an echocardiogram 09/25 patient stress test pending Qualifiers: Heart failure type: unspecified Qualified Code(s): I50.9 - Heart failure, unspecified (3) Obstructive sleep apnea (adult) (pediatric) Current Visit: Yes Status: Acute Plan: Will need to get his cpap settings. 09/23 patient has not been using his cpap. was diagnoised in 2014. (4) Essential (primary) hypertension Current Visit: Yes Status: Acute Plan: restart his home medications (5) Mixed hyperlipidemia Current Visit: Yes Status: Acute Plan: swiitch from simvastatin to atorvastatin Discharge Plan: Home Plan to discharge in: 24 Hours - Code Status/Comfort Care Code Status Assessed: No Physician Review: Patient Assessed, Agree with Above Assessment and Plan Critical Care: Yes Time Spent Managing PTS Care (In Minutes): 30
[2022-09-25 15:17] LABS: Phosphorus 2.9 mg/dL (2.5-4.9); Uric Acid 12.7 mg/dL (3.5-7.2)
[2022-09-25 15:18] LABS: Magnesium 1.8 mg/dL (1.6-2.4); Potassium 3.4 mEq/L (3.5-5.1)
[2022-09-25] MEDS: PANTOPRAZOLE 40MG TABLET PO SCH (15:19)
[2022-09-25] MEDS: ENOXAPARIN 40 MG/0.4 ML SQ SCH (15:19)
[2022-09-25] MEDS: ASPIRIN 81 MG CHEWABLE TABLET PO SCH (15:19)
--- NOTE | 2022-09-25 15:22 | RAD REPORT ---
EXAM DESCRIPTION: NM - Rest Stress Cardiac Imaging - 09/25/2022 3:08 pm CLINICAL HISTORY: elevated troponin Chest pain. COMPARISON: <Comparisons> TECHNIQUE: The patient was administered approximately 10mCi of Tc 99m Sestamibi prior to resting SPE CT imaging of the heart. The patient was then administered approximately 30 mCi of Tc 99m Sestamibi f ollowing exercise or pharmacologic stress. Multiplanar SPECT images were reviewed. FINDINGS: Moderate sized area of mild stress-induced ischemia is seen involving the inferior wall. L arge fixed apex defect compatible with old infarction. The end diastolic volume is 124 ml, the end systolic volume is 61 ml, and the ejection fraction is 51 %. IMPRESSION: Moderate sized area of mild stress-induced ischemia involving the inferior wall. 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
[2022-09-25] MEDS ORDERED: MAGNESIUM SULFATE 1 gm IVPB 1 GM/100 ML BAG IV ONE (16:00)
[2022-09-25 16:15] LABS: Specific Gravity 1.018 (1.005-1.030); Urine Bacteria <20 /HPF (<20); Urine Bilirubin NEGATIVE (Negative); Urine Blood Negative (Negative); Urine Clarity Clear (Clear); Urine Color Light-Yellow (Yellow); Urine Glucose NEGATIVE (Negative); Urine Protein TRACE (Negative); Urine RBC <5 /HPF (None Seen); Urine Urobilinogen Normal (Normal); Urine pH 5.5 (5.0-7.0)
[2022-09-25 16:20] LABS: UR PROTEIN 24.3 mg/dL (<11.9); Urine Protein/Creatinine Ratio 0.13 ratio (<0.15)
[2022-09-25] MEDS: NA CHLORIDE 0.9% 1,000 ML IV SCH (16:27)
[2022-09-25] MEDS ORDERED: POTASS/SODIUM PHOSPHATE 1 PKT POWD.PACK PO ONE (17:00)
--- NOTE | 2022-09-25 21:00 | PN ---
Date of Progress Note: 09/25/2022 Subjective: Seen by bedside. Doing well. No shortness of breath. No chest pain. No nausea, vomit ing, or diarrhea. All other systems reviewed, they were negative. Objective: Vital Signs: Reviewed. Head and Neck: Pupils are equal, reactive to light. Intact eye movements. No JVD. No cervical lym phadenopathy. Neck is supple. Thyroid is not enlarged. Lungs: Clear to auscultation bilaterally. No rhonchi, wheezing, or crackles. No accessory muscle u se. Heart: Regular rate and rhythm. No extra sounds. Abdomen: Soft, nontender. Bowel sounds positive. No organomegaly. No masses or hernia. No rigidi ty or rebound. Extremities: No edema, clubbing, or cyanosis. Intact pulses. Skin: No rash. No nodule. Neurologic: Alert, awake, oriented x3. No acute focal deficits appreciated. Investigations: BUN 53, creatinine 2.02. Assessment And Recommendations: 1.Acute on chronic diastolic heart failure exacerbation. The patient was overdiuresed and then deve loped acute renal failure. Lasix was stopped completely and I gave a 250 bolus normal saline. Repea megan creatinine went down from 2.8 to 2.0 and his troponin peaked at 430. Stress test positive for in ferior ischemia. Hemoglobin is 10. acute on chronic diastolic heart failure exacerbation . Appears to be euvolemic now. Hold Lasix due to acute renal failure. 2.Acute renal failure due to dehydration and overdiuresis. Lasix was held and received fluids and c reatinine improved already and he is getting gentle hydration and reassess labs tomorrow. 3.Elevated troponin with positive stress test. Patient will need coronary angiogram. I will wait until his kidney function completely normalizes and continue statin, baby aspirin. SR/MODL Voice ID: [id number] Report ID: [id number]
[2022-09-25] MEDS: ATORVASTATIN 40 MG TAB PO SCH (21:06)
--- NOTE | 2022-09-26 02:45 | CON ---
Date of Consultation: 09/25/2022 Subjective: Acute kidney injury. The patient is admitted to ICU for acute congestive heart failure exacerbation. Patient was found to have elevated BUN and creatinine today. Nephrology consultation was requested for acute kidney injury. The patient was admitted with severe dyspnea. He was complai sathish of leg swelling. Over the last few days, the patient was treated with diuretic and legs edema h as improved. Shortness of breath also resolved. The patient was brought by EMS to the hospital, was found to have SpO2 in 50s. He was placed on BiPAP and started on Lasix for congestive heart failure . Today, Nephrology consultation was requested because his creatinine level was up to 2.80, BUN 54. Ye day, creatinine was 1.2, BUN 31, sodium 131, potassium 3.0, chloride 92, CO2 of 30, magnesium 1.9 . Review of Systems: Constitutional: The patient is feeling better. He denies fever, chills. Eyes: Denies vision changes. Ears, Nose, Mouth, and Throat: Denies sore throat, earache. Respiratory: Has some dyspnea with activity. Currently he is wheelchair-bound and bed-bound. He re julian in ICU. He is undergoing cardiac workup. GI: Denies nausea, vomiting. : Denies dysuria, hematuria. Extremities: He has some edema, which has improved. All other systems reviewed and all are negative. Past Medical History: Hypertension, obesity. Family History: No kidney disease in family. Social History: Denies tobacco. Denies drugs. Physical Examination: General: Patient is awake, alert, follows commands. Eyes: Anicteric sclerae. EOMI. Ears, Nose, Mouth, and Throat: Oral mucosa moist. No pallor. Neck: Supple. No bruits. Lungs: Diminished breath sounds at bases. Heart: S1, S2. Abdomen: Soft, benign. Extremities: Slight edema. Lab Work: Today showed sodium 129, potassium 3.4, chloride 94, CO2 27, BUN 53, creatinine 2.8 and 2. 02, glucose 147, uric acid 12.7. Urinalysis showed pH 5.5, urine specific gravity 1.018, ketones neg ative, blood negative, nitrites negative, RBC less than 5, WBC less than 5. Urine protein trace. Ur ine protein creatinine ratio 0.13. Renal ultrasound is pending. Impression And Plan: 1.Acute on chronic kidney injury secondary to diuretic affect in setting of congestive heart failure . The patient received IV Lasix. There is ongoing hyponatremia due to congestive heart failure. Co ntinue low-sodium diet and p.o. fluid restriction. Currently, the patient is on normal saline for ac [place] kidney injury. Plan is to titrate normal saline down. 2.Hypokalemia. Replacement for hyperkalemia was ordered. 3.Hyperuricemia secondary to diuretic affect. Monitor uric acid. The patient does not have gout. Recommend to evaluate uric acid. 4.Hyponatremia. Check TSH level and cortisol level. EB/MODL Voice ID: [id number] Report ID: [id number]
[2022-09-26] MEDS: PANTOPRAZOLE 40MG TABLET PO SCH (06:34)
[2022-09-26] MEDS: NA CHLORIDE 0.9% 1,000 ML IV SCH (06:35)
[2022-09-26 06:49] LABS: Absolute Lymphocytes (CBC) 0.8 K/uL (0.7-4.9); Hematocrit 32.6 % (39.6-49.0); Lymphocytes % 10.5 % (15.3-44.8); MCV 75.1 fL (80-100); MPV 8.4 fL (7.6-11.3); Platelets 269 thou/uL (152-406); RBC Red Blood Cell Count 4.34 M/uL (4.33-5.43)
--- NOTE | 2022-09-26 06:55 | ECHO ---
HEIGHT: 5 ft 6 in WEIGHT: 266 lb 0 oz DATE OF STUDY: 09/25/[address]: Fab Louise MD 2-DIMENSIONAL: YES M.MODE: YES DOPPLER: YES COLOR FLOW: YES TDS: YES PORTABLE: YES DEFINITY: BUBBLE STUDY: DIAGNOSIS: ACUTE CONGESTIVE HEART FAILURE CARDIAC HISTORY: CATHERIZATION: SURGERY: PROSTHETIC VALVE: PACEMAKER: MEASUREMENTS (cm) DIASTOLIC (NORMALS) SYSTOLIC (NORMALS) IVSd 1.1 (0.6-1.2) LA Diam 3.9 (1.9-4.0) LVEF 61% LVIDd 3.7 (3.5-5.7) LVIDs 2.5 (2.0-3.5) %FS 32% LVPWd 1.1 (0.6-1.2) Ao Diam 2.9 (2.0-3.7) 2 DIMENSIONAL ASSESSMENT: RIGHT ATRIUM: NORMAL LEFT ATRIUM: NORMAL RIGHT VENTRICLE: NORMAL LEFT VENTRICLE: NORMAL TRICUSPID VALVE: NORMAL MITRAL VALVE: NORMAL PULMONIC VALVE: NORMAL AORTIC VALVE: MILD AORTIC INSUFFICIENCY PERICARDIAL EFFUSION: NONE AORTIC ROOT: NORMAL LEFT VENTRICULAR WALL MOTION: NORMAL DOPPLER/COLOR FLOW: MILD AORTIC INSUFFICIENCY COMMENTS: 1. NORMAL LEFT VENTRICULAR EJECTION FRACTION 60-65% 2. NORMAL WALL MOTION 3. GRADE I DIASTOLIC DYSFUNCTION 4. MILD AORTIC INSUFFICIENCY TECHNOLOGIST: JERRI MCKEON
[2022-09-26 07:01] LABS: Bilirubin Total 0.6 mg/dL (0.2-1.0); Potassium 3.8 mEq/L (3.5-5.1); Protein, Total 8.6 g/dL (6.4-8.2)
[2022-09-26 07:02] LABS: Albumin 3.9 g/dL (3.4-5.0)
[2022-09-26] MEDS ORDERED: POTASSIUM 25 MEQ EFFERV TAB PO ONE (07:08)
--- NOTE | 2022-09-26 07:20 | RAD REPORT ---
EXAM DESCRIPTION: US - Abdomen Pelvis Scan US - 09/26/2022 5:42 am CLINICAL HISTORY: Acute renal injury COMPARISON: 2014 FINDINGS: The right kidney 11 centimeters with a normal echotexture. No hydronephrosis Bladder grossly normal Left kidney 12 centimeters normal echotexture. No hydronephrosis. The velocity of the right renal artery 157 centimeters seconds. The velocity of the left renal artery 115 centimeters/second. Renal artery/aorta ratio is within normal limits IMPRESSION: No sonographic evidence of renal arterial stenosis
--- NOTE | 2022-09-26 08:27 | P.PN ---
Subjective Date of Service: 09/26/22 Primary Care Provider: Aspen Chief Complaint: acute chf exacerbation creatine is almost back to baseline Review of Systems 10-point ROS is otherwise unremarkable Physical Examination - Vital Signs Temperature: 97.4 F Blood Pressure: 126/78 Pulse: 97 Respirations: 20 Pulse Ox (%): 100 - Physical Exam General: Alert, In no apparent distress HEENT: Atraumatic, PERRLA, EOMI Neck: Supple, JVD not distended Respiratory: Clear to auscultation bilaterally, Normal air movement Cardiovascular: Regular rate/rhythm, Normal S1 S2 Gastrointestinal: Normal bowel sounds, No tenderness Musculoskeletal: No tenderness Integumentary: No rashes Neurological: Normal speech, Normal tone, Normal affect Lymphatics: No axilla or inguinal lymphadenopathy Assessment And Plan - Current Problems (Diagnosis) (1) Acute renal failure Current Visit: Yes Status: Acute Plan: He did recieve a lot of furosemide. He has gotten contrast for the stress test. The patient is being seen by Dr. Pina 4.15 creatine has recovered to baseline Qualifiers: Acute renal failure type: unspecified Qualified Code(s): N17.9 - Acute kidney failure, unspecified (2) Acute exacerbation of CHF (congestive heart failure) Current Visit: Yes Status: Acute Plan: Will continue cpap and diuresis. Consult to Dr. Salinas. Will check an echocardiogram 09/25 patient stress test pending Qualifiers: Heart failure type: unspecified Qualified Code(s): I50.9 - Heart failure, unspecified (3) Obstructive sleep apnea (adult) (pediatric) Current Visit: Yes Status: Acute Plan: Will need to get his cpap settings. 09/23 patient has not been using his cpap. was diagnoised in 2014. (4) Essential (primary) hypertension Current Visit: Yes Status: Acute Plan: restart his home medications (5) Mixed hyperlipidemia Current Visit: Yes Status: Acute Plan: swiitch from simvastatin to atorvastatin Discharge Plan: Home Plan to discharge in: 24 Hours - Code Status/Comfort Care Code Status Assessed: No Physician Review: Patient Assessed, Agree with Above Assessment and Plan Critical Care: No Time Spent Managing PTS Care (In Minutes): 25
--- NOTE | 2022-09-26 08:40 | TREADPHA ---
DX: ELEVATED TROPONIN Date of Study: 09/22/2022 Ht: 5' 6 " Wt: 266 lb 0 oz Consulting Physician: DAREN MEDICATIONS: ASPIRIN, LIPITOR, LOVENOX, PROTONIX HISTORY: 47 YEAR OLD MALE WITH COMPLAINTS OF CHEST PAIN. HISTORY OF ACID REFLUX, HYPERLIPIDEMIA, HYPERTENSION, NON SMOKER, OCCASIONAL DRINKER. PHYSICIAL EXAMINATION: RESTING B.P.: 106/63 RESTING H.R.: 96 RESTING EKG: OBDULIA SINUS RHYTHM PROTOCOL: PHARMACOLOGIC EXERCISE TIME: 3:30 B.P. AT [place]AK STRESS: 89/67 IMPRESSION: LEXISCAN INJECTED, FOLLOWED BY CARDIOLITE PER PROTOCOL. SEE NUCLEAR MEDICINE REPORT. NO SUPRAVENTRICULAR TACHYCARDIA, VENTRICULAR TACHYCARDIA, PREMATURE ATRIAL COMPLEXES, PREMATURE VENTRICULAR COMPLEXES. PATIENT REPORTS NO CHEST PAIN. NO ELECTROCARDIOGRAM CHANGES WITH LEXISCAN.
[2022-09-26] MEDS: ENOXAPARIN 40 MG/0.4 ML SQ SCH (09:33)
[2022-09-26] MEDS: ASPIRIN 81 MG CHEWABLE TABLET PO SCH (09:34)
[2022-09-26] MEDS ORDERED: carvediloL 12.5 MG TAB PO ONE (09:46)
[2022-09-26] MEDS: AMLODIPINE 5 MG TAB PO SCH (10:55)
[2022-09-26] MEDS: BENAZEPRIL 20 MG TAB PO SCH (10:55)
--- NOTE | 2022-09-26 11:49 | RAD REPORT ---
EXAM DESCRIPTION: Chary Single View09/26/2022 11:40 am CLINICAL HISTORY: Shortness of breath COMPARISON: September 22 September 22, 2022 FINDINGS: Bilateral pulmonary opacities have partially resolved. Heart remains enlarged IMPRESSION: Improvement in pulmonary edema
[2022-09-26 12:06] LABS: Hepatitis B Core IgM Nonreactive (Nonreactive); Hepatitis B surface AG Interp. Nonreactive (Nonreactive); Hepatitis C Virus Ab Nonreactive (Nonreactive)
--- NOTE | 2022-09-26 13:41 | PN ---
Date of Progress Note: 09/26/2022 Subjective: The patient was admitted to the hospital with acute kidney injury, hyponatremia. His ac yuki kidney injury was prerenal. The patient was admitted, that he was taking chlorthalidone. The lyn steward had nausea, no vomiting. The patient was seen by Cardiology. Stress test was done yesterday. The patient on IV fluids. Physical Examination: Vital Signs: Blood pressure 126/78, pulse of 97, afebrile. Chest: Clear to auscultation. Heart: S1, S2. Regular. Abdomen: Soft, nontender. Extremity: Trace edema. Neurologic: Alert. No focality. Laboratory Data: WBC 8, hemoglobin of 10. Sodium 130, potassium 3.8, bicarb 27, BUN 40, creatinine 1.3, GFR of 66, uric acid 12.7, calcium 9.4, albumin 3.9. Urinalysis, PC ratio 0.1, negative for inf ection. Serology still pending. Stress test was done yesterday. Renal ultrasound was done and showing 11/12 cm, no hydronephrosis. Current Medications: The patient on include carvedilol, aspirin, amlodipine, Lovenox, pantoprazole, IV fluid normal saline at 50 per hour. Assessment And Plan: 1.Acute kidney injury, multifactorial, secondary to prerenal, poor perfusion ATN/cardiorenal, improv ed significantly. Currently, GFR above 60. I am going to continue IV fluid. I am going to get ches t x-ray for better evaluation of the fluid status. 2.Obstructive uropathy has been ruled out. 3.Hyponatremia secondary to depletional, superimposed with chlorthalidone intake, recovered, current ly sodium above 130. I am going to keep holding chlorthalidone and we will continue IV fluid and rep eat chest x-ray to evaluate on the IV fluid. 4.Hypokalemia, hypomagnesemia. We will continue supplement. 5.Hyperuricemia. I am going to check his uric acid for tomorrow and we will follow up the patient. After the chest x-ray evaluation, the patient will be cleared from the Renal standpoint for discharg e planning to follow up in the office in 2-3 weeks. MIKAELA/YAKELIN Voice ID: [id number] Report ID: [id number]
[2022-09-26] MEDS: carvediloL 12.5 MG TAB PO SCH (19:44)
[2022-09-26] MEDS: ATORVASTATIN 40 MG TAB PO SCH (20:37)
[2022-09-27 05:32] VITALS: BMI 33.7
[2022-09-27] MEDS: carvediloL 12.5 MG TAB PO SCH ×2 (05:43→18:02)
[2022-09-27] MEDS: ASPIRIN 81 MG CHEWABLE TABLET PO SCH (05:43)
[2022-09-27] MEDS: PANTOPRAZOLE 40MG TABLET PO SCH (05:52)
[2022-09-27] MEDS ORDERED: NA CHLORIDE 0.9% 1,000 ML IV SCH ×2 (06:00)
[2022-09-27 06:06] LABS: Albumin 3.7 g/dL (3.4-5.0); Magnesium 1.9 mg/dL (1.6-2.4); Phosphorus 2.6 mg/dL (2.5-4.9); Potassium 4.1 mEq/L (3.5-5.1); Uric Acid 9.6 mg/dL (3.5-7.2)
[2022-09-27] MEDS: ENOXAPARIN 40 MG/0.4 ML SQ SCH (08:18)
--- NOTE | 2022-09-27 08:47 | P.PN ---
Subjective Date of Service: 09/27/22 Primary Care Provider: Aspen Chief Complaint: acute chf exacerbation Subjective: No new changes plans for cardiac cath this morning Review of Systems 10-point ROS is otherwise unremarkable Physical Examination - Vital Signs Temperature: 98.2 F Blood Pressure: 117/61 Pulse: 87 Respirations: 20 Pulse Ox (%): 22 - Physical Exam General: Alert, In no apparent distress HEENT: Atraumatic, PERRLA, EOMI Neck: Supple, JVD not distended Respiratory: Clear to auscultation bilaterally, Normal air movement Cardiovascular: Regular rate/rhythm, Normal S1 S2 Gastrointestinal: Normal bowel sounds, No tenderness Musculoskeletal: No tenderness Integumentary: No rashes Neurological: Normal speech, Normal tone, Normal affect Lymphatics: No axilla or inguinal lymphadenopathy Assessment And Plan - Current Problems (Diagnosis) (1) Acute exacerbation of CHF (congestive heart failure) Current Visit: Yes Status: Acute Plan: Will continue cpap and diuresis. Consult to Dr. Salinas. Will check an echocardiogram 09/27 Plans for cath today Qualifiers: Heart failure type: unspecified Qualified Code(s): I50.9 - Heart failure, unspecified (2) Acute renal failure Current Visit: Yes Status: Acute Plan: He did recieve a lot of furosemide. He has gotten contrast for the stress test. The patient is being seen by Dr. Pina 4.15 creatine has recovered to baseline Qualifiers: Acute renal failure type: unspecified Qualified Code(s): N17.9 - Acute kidney failure, unspecified (3) Obstructive sleep apnea (adult) (pediatric) Current Visit: Yes Status: Acute Plan: Will need to get his cpap settings. 09/23 patient has not been using his cpap. was diagnoised in 2015. (4) Essential (primary) hypertension Current Visit: Yes Status: Acute Plan: restart his home medications (5) Mixed hyperlipidemia Current Visit: Yes Status: Acute Plan: swiitch from simvastatin to atorvastatin Discharge Plan: Home Plan to discharge in: 24 Hours - Code Status/Comfort Care Code Status Assessed: No Physician Review: Patient Assessed, Agree with Above Assessment and Plan Critical Care: No Time Spent Managing PTS Care (In Minutes): 20
[2022-09-27] MEDS: AMLODIPINE 5 MG TAB PO SCH (09:00)
[2022-09-27] MEDS: BENAZEPRIL 20 MG TAB PO SCH (09:00)
[2022-09-27] MEDS ORDERED: MAGNESIUM SULFATE 1 gm IVPB 1 GM/100 ML BAG IV ONE (09:55)
--- NOTE | 2022-09-27 14:50 | PN ---
Date of Progress Note: 09/27/2022 Subjective: The patient was admitted with acute kidney injury, non-ST elevation. The patient planne d for cardiac cath today. The patient's kidney injury has been improved significantly. Blood pressu re stable. IV fluid continued. Physical Examination: Vital Signs: Blood pressure 110/73, pulse of 88. Chest: Clear to auscultation. Heart: S1, S2. Regular. Abdomen: Soft, nontender. Extremities: No edema. Neurologic: Alert. No focality. Laboratory Data: Hemoglobin of 10. Sodium 131, potassium 4.1, bicarb 27, BUN 27, creatinine 1, GFR of 84, calcium of 9.1, uric acid 9.6, magnesium 1.9. Serum electrophoresis still pending. Cortisol 15. TSH 1.2. Urinalysis; specific gravity 1.018, PC ratio 0.1, urine sodium of 78. Current Medications: The patient on include; 1.Lovenox. 2.Aspirin. 3.Amlodipine 5 mg daily. 4.Atorvastatin. 5.Benazepril was started yesterday at 20 mg. 6.Carvedilol 12.5 b.i.d. 7.Pantoprazole. 8.Normal saline. Assessment And Plan: 1.Acute kidney injury secondary to prerenal. Normal size kidney. Continued to recover. The patien t planned for a cardiac cath. Given the acute kidney injury, I am going to continue IV fluid for the time being and to continue 10 hours after the cardiac cath. Hold benazepril for the time being and we will continue to monitor. 2.Hypertension, controlled, optimal. Given the exposure to contrast, we will minimize the risk by h olding benazepril and continue IV hydration. 3.Clq-RY-wxwkmubxy myocardial infarction. Plan for cardiac cath. Follow up with Cardiology. Rachel nue IV fluids 10 hours after catheterization. Repeat chemistry 24 to 48 hours and 2 weeks. 4.Hyponatremia, depletional, recovered, resolved. 5.Hypokalemia, hypomagnesemia. We will supplement. MARYAN Voice ID: [id number] Report ID: [id number]
[2022-09-27] MEDS: ATORVASTATIN 40 MG TAB PO SCH (20:25)
[2022-09-28 05:22] LABS: Albumin 3.7 g/dL (3.4-5.0); Phosphorus 3.5 mg/dL (2.5-4.9)
[2022-09-28] MEDS: ASPIRIN 81 MG CHEWABLE TABLET PO SCH (05:45)
[2022-09-28] MEDS: carvediloL 12.5 MG TAB PO SCH (05:45)
[2022-09-28] MEDS: ENOXAPARIN 40 MG/0.4 ML SQ SCH (06:03)
[2022-09-28] MEDS ORDERED: MIDAZOLAM HCL 2 MG/2 ML INJ ONE (06:17)
[2022-09-28] MEDS ORDERED: FENTANYL CITR 100 MCG/2 ML ONE (06:17)
[2022-09-28] MEDS ORDERED: HEPARIN 5000 UNIT/ML 1 ML VIAL ONE (06:17)
[2022-09-28] MEDS ORDERED: HEPA 1000U/500MLS 2,000 UNIT/1,000 ML BAG IV ONE (06:17)
[2022-09-28] MEDS ORDERED: HEPARIN 10,000 UNIT/10 ML VIAL IV ONE (06:18)
[2022-09-28] MEDS ORDERED: CLOPIDOGREL 75 MG TABLET ONE (06:18)
[2022-09-28] MEDS ORDERED: NITROGLYCERIN 100 MCG/ML SYR (for cath lab use only) IV ONE (06:18)
[2022-09-28] MEDS ORDERED: TICAGRELOR 90 MG TABLET PO ONE (06:18)
[2022-09-28] MEDS ORDERED: ASPIRIN 325 MG TAB ONE (06:18)
[2022-09-28] MEDS ORDERED: VERAPAMIL HCL 10 MG/4 ML VIAL IV ONE (06:18)
[2022-09-28] MEDS ORDERED: LIDOCAINE 1% 20 ML MDV ONE (06:18)
[2022-09-28] MEDS ORDERED: ATROPINE SULF 1 MG/10 ML SYR IV ONE (06:18)
[2022-09-28] MEDS ORDERED: NITROGLYCERIN/D5W 25 MG/250 ML BTL IV ONE (06:18)
[2022-09-28] MEDS ORDERED: NA CHLORIDE 0.9% 500 ML ONE (07:32)
[2022-09-28] MEDS ORDERED: Phenylephrine HCl 10 MG/ML 1 ML VIAL ONE (08:06)
--- NOTE | 2022-09-28 08:51 | OP ---
Date of Procedure: 09/28/2022 Surgeon: HARI MERCEDES Procedures Performed: 1.Selective coronary angiogram. 2.Left heart catheterization. 3.Failed PCI attempt of totally occluded mid LAD stenosis. Indication: 1.Acute heart failure. 2.Non-ST elevation myocardial infarction and positive stress test. Access: Right radial artery 6-Iraqi closed with TR band. Complications: None. Bleeding: Less than 20 mL. Description Of Procedure: After risks, benefits, alternatives were explained, the patient agreed to procedure and signed informed consent. The patient was brought into the cardiac catheterization [facility], prepped and draped in the usual sterile fashion. Then, I accessed right radial artery using pediatric micropuncture kit, placed 6-Iraqi Slender sheath and took 5-Iraqi Melrose 4.0 catheter into the aortic root, engaged left main and then I took a 6-Iraqi JL3.5 catheter, engaged the left main and took standard views, and using the Melrose catheter, engaged the RCA, took standard views, and then the catheter was pushed into the LV over the wire, measured the LVEDP and pullback did not record an y gradient. Then, I took a 6-Iraqi EBU3.5 guide into the aortic root over a J-wire, engaged the lef t main. Gave systemic heparin to assure ACT level above 250. I took short Run-Through wire into the LAD and tried to cross the mid LAD stenosis and I could not pass wire, so procedure aborted. Then, I took the wire out, the guide out, and sheath and placed TR band with good hemostasis. Findings: 1.Left main is large and normal. 2.LAD; proximal 70% and the mid HOSIERY LOOPER 100%. 3.Left circumflex is very large vessel with proximal 40% and mid OM 40%. 4.RCA; large vessel and dominant, proximal 50%, mid diffuse 30% to 40% and gives collaterals to the LAD. 5.LVEDP is borderline at 30 mmHg. Conclusion: 1.Severe LAD disease with mid HOSIERY LOOPER, failed PCI, but with collaterals from the right side. 2.Moderate coronary artery disease elsewhere. Recommendations: Single-vessel CABG. SR/MODL Voice ID: [id number] Report ID: [id number]
[2022-09-28] MEDS: AMLODIPINE 5 MG TAB PO SCH (09:15)
[2022-09-28] MEDS: PANTOPRAZOLE 40MG TABLET PO SCH (09:16)
[2022-09-28] MEDS ORDERED: NA CHLORIDE 0.9% 1,000 ML IV SCH (12:00)
--- NOTE | 2022-09-28 12:16 | P.DS ---
Admission Date: 09/22/22 Discharge Date: 09/28/22 Primary Care Provider: Aspen Disposition: ROUTINE DISCHARGE Reason for Admission: acute chf exacerbation - Problems (1) Acute exacerbation of CHF (congestive heart failure) Current Visit: Yes Status: Acute Qualifiers: Heart failure type: unspecified Qualified Code(s): I50.9 - Heart failure, unspecified (2) Acute renal failure Current Visit: Yes Status: Acute Qualifiers: Acute renal failure type: unspecified Qualified Code(s): N17.9 - Acute kidney failure, unspecified (3) Obstructive sleep apnea (adult) (pediatric) Current Visit: Yes Status: Acute (4) Essential (primary) hypertension Current Visit: Yes Status: Acute (5) Mixed hyperlipidemia Current Visit: Yes Status: Acute Brief History of Present Illness: Patient has been having some shortness of breath He has some swelling in his legs. The patient was very short of breath this morning. The patient called ems Was found to have a spO2 in the 50% The patient was put on a bipap and brought to the ER. He was given lasix. Diueised well.. Is comfortable on a bipap at this pointm Hospital Course: Patient was admitted for chf exacerbation. He had good diuresis. Which caused an elevated creatine. However the patient recovered when we decreased his furosemide. He was seen by Dr. Sandoval. Echo showed 65%. He had a cath which showed a distal occlusion of the LAD. He has the good colateral circulations. Per Dr. Salinas he needs a single vessel cabg Vital Signs/Physical Exam: Temp Pulse Resp BP Pulse Ox 99.1 F 92 H 14 128/76 100 09/28/22 04:00 09/28/22 09:15 09/28/22 09:00 09/28/22 09:15 09/28/22 09:00 General: Alert, In no apparent distress HEENT: Atraumatic, PERRLA, EOMI Neck: Supple, JVD not distended Respiratory: Clear to auscultation bilaterally, Normal air movement Cardiovascular: Regular rate/rhythm, Normal S1 S2 Gastrointestinal: Normal bowel sounds, No tenderness Musculoskeletal: No tenderness Integumentary: No rashes Neurological: Normal speech, Normal tone, Normal affect Lymphatics: No axilla or inguinal lymphadenopathy Laboratory Data at Discharge: WBC 8.00 thou/uL (4.3-10.9) 08/15/23 06:27 Hgb 10.0 g/dL (13.6-17.9) L 09/26/22 06:27 Hct 32.6 % (39.6-49.0) L 09/26/22 06:27 Plt Count 269 thou/uL (152-406) 09/26/22 06:27 PT 11.4 SECONDS (9.5-12.5) 09/22/22 08:35 INR 1.04 09/22/22 08:35 APTT 30.8 SECONDS (24.3-36.9) 09/22/22 08:35 Sodium 131 mEq/L (136-145) L 09/28/22 04:43 Potassium 4.0 mEq/L (3.5-5.1) 09/28/22 04:43 BUN 22 mg/dL (7-18) H 09/28/22 04:43 Creatinine 1.03 mg/dL (0.70-1.30) 09/28/22 04:43 Glucose 110 mg/dL (74-106) H 09/28/22 04:43 Uric Acid 9.6 mg/dL (3.5-7.2) H 09/27/22 05:45 Phosphorus 3.5 mg/dL (2.5-4.9) 09/28/22 04:43 Magnesium 1.9 mg/dL (1.6-2.4) 09/27/22 05:45 Total Bilirubin 0.6 mg/dL (0.2-1.0) 09/26/22 06:27 AST 16 U/L (15-37) 09/26/22 06:27 ALT 24 U/L (16-61) 09/26/22 06:27 Alkaline Phosphatase 65 U/L (45-117) 09/26/22 06:27 Triglycerides 164 mg/dL (<150) H 09/23/22 04:40 Cholesterol 184 mg/dL (<200) 09/23/22 04:40 HDL Cholesterol 36 mg/dL (40-60) L 09/23/22 04:40 Cholesterol/HDL Ratio 5.11 09/23/22 04:40 Home Medications: Amlodipine Besylate/Benazepril [Amlodipine-Benazepril 5-20 mg] 1 cap PO DAILY 09/22/22 Carvedilol [Coreg] 12.5 mg PO BID 09/22/22 Chlorthalidone 1 tab PO DAILY 09/22/22 Aspirin 81 mg PO DAILY AFTER SUPPER 90 Days #90 tab.chew 09/28/22 Atorvastatin Calcium [Lipitor] 80 mg PO DAILY AFTER SUPPER 90 Days #90 tab 09/28/22 Nitroglycerin 0.3 mg SL CONT #10 09/28/22 New Medications: Aspirin 81 mg PO DAILY AFTER SUPPER 90 Days #90 tab.chew Atorvastatin Calcium [Lipitor] 80 mg PO DAILY AFTER SUPPER 90 Days #90 tab Nitroglycerin 0.3 mg SL CONT #10 Diet: ADA Activity: Ad chris Followup: Fab Louise MD [Primary Care Provider] - Gustavo Salinas MD [ACTIVE - CAN ADMIT] - Physician Review: Patient Assessed, Agree with Above Assessment and Plan Time spent managing pt's care (in minutes): 45
--- NOTE | 2022-09-28 12:21 | PN ---
Date of Progress Note: 09/28/2022 Subjective: The patient was admitted with non-ST elevation. The patient had acute kidney injury. T he patient had cardiac cath today. The patient's kidney function has been stable. Hyponatremia has been improved. Physical Examination: Vital Signs: When I saw the patient; blood pressure 128/76, pulse of 92. Chest: Clear to auscultation. Heart: S1, S2. Regular. Abdomen: Soft, nontender. Extremity: No edema. Neurologic: Alert. No focality. Laboratory Data: Hemoglobin of 10. Sodium 131, potassium 4, bicarb 27, BUN 22, creatinine 1, calciu m 9.0, phosphorus 3.5. Current Medications: The patient on is include; 1.Aspirin. 2.Lovenox. 3.Atorvastatin. 4.Carvedilol. 5.Amlodipine. 6.Pantoprazole. Assessment And Plan: 1.Acute kidney injury secondary to ATN, cardiorenal syndrome. Continued to recover. The patient berry d catheterization today. I am going to resume IV fluid 10 hours after cardiac cath and we will follo w up. The patient is going to be cleared from the Renal standpoint for discharge planning to follow up in the office in 2-3 weeks. 2.Hypertension, controlled, optimal. Continue current treatment. Keep holding KRYSTAL inhibitor. At t his time, we will consider challenging as outpatient. 3.Non-ST elevation myocardial infarction, coronary artery disease, status post catheterization, fail ed percutaneous coronary intervention. We will follow up with Cardiology. 4.Hyponatremia, depletional. Resume IV fluid and we will follow up. MARYAN Voice ID: [id number] Report ID: [id number]
[2022-09-28 12:47] VITALS: O2SAT 99
[2022-09-28 12:48] VITALS: TEMP 98.4
[2022-09-28 17:35] VITALS: BP 128/75
[2022-09-29 12:44] LABS: Albumin, (SPE) 4.1 g/dL (3.8-4.8); Alpha-1-Globulins 0.5 g/dL (0.2-0.3); Alpha-2-Globulins 1.2 g/dL (0.5-0.9); Gamma Globulins 1.2 g/dL (0.8-1.7); INTERPRETATION REPORT
== END 2022-09-28 16:00 | disposition home or self-care (01) | DRG 280 ==
LOC: SUPCPDRO 08:30 → ER 08:30 → ERHOLD 09:50 → 3RD-ICU 12:56
PROVIDERS: ADMIT Internal Medicine; ATTEND Internal Medicine
PROC: 5A09557 Assistance with Respiratory Ventilation, Greater than 96 Consecutive Hours, Continuous Positive Airway Pressure (ICD-10-PCS; 2022-09-22)
PROC: 4A023N7 Measurement of Cardiac Sampling and Pressure, Left Heart, Percutaneous Approach (ICD-10-PCS; principal; 2022-09-28)
PROC: B2111ZZ Fluoroscopy of Multiple Coronary Arteries using Low Osmolar Contrast (ICD-10-PCS; 2022-09-28)
PROC: 3E043XZ Introduction of Vasopressor into Central Vein, Percutaneous Approach (ICD-10-PCS; 2022-09-28)
DX: I21.4 Non-ST elevation (NSTEMI) myocardial infarction (principal); I50.33 Acute on chronic diastolic (congestive) heart failure; N17.0 Acute kidney failure with tubular necrosis; Z68.42 Body mass index [BMI] 45.0-49.9, adult; E87.1 Hypo-osmolality and hyponatremia; I11.0 Hypertensive heart disease with heart failure; E66.01 Morbid (severe) obesity due to excess calories; E86.0 Dehydration; E78.2 Mixed hyperlipidemia; E83.42 Hypomagnesemia; E87.6 Hypokalemia; G47.33 Obstructive sleep apnea (adult) (pediatric); E79.0 Hyperuricemia without signs of inflammatory arthritis and tophaceous disease; Z99.3 Dependence on wheelchair; Z79.02 Long term (current) use of antithrombotics/antiplatelets; Z79.82 Long term (current) use of aspirin; Z74.01 Bed confinement status; Z79.899 Other long term (current) drug therapy
CPT/HCPCS: 36415; 36600; 71045; 76937; 78452; 80048; 80053; 80061; 80069; 80074; 80076; 81001; 82533; 82550; 82570; 82805; 83605; 83735; 83880; 84100; 84132; 84156; 84165; 84300; 84443; 84484; 84550; 85025; 85610; 85730; 86334; 87040; 87389; 87811; 93005; 93017; 93306; 93458; 93975; 94660; 96374; 99285; A9500; C1893; J0461; J1644; J1650; J1940; J2001; J2250; J2371; J2785; J3010; J3475; J7030; J7040; J7050; Q9967

== ENCOUNTER 2023-06-29 07:30 | Inpatient (IN) | payer OTHER, SELFPAY ==
[2023-06-29] MEDS ORDERED: MORPHINE 4 MG/ML SYR ONE (07:54)
[2023-06-29 08:00] LABS: Absolute Eosinophils 0.1 K/uL (0-0.5); Absolute Lymphocytes (CBC) 0.7 K/uL (0.7-4.9); Absolute Monocytes 1.4 K/uL (0.1-1.3); Absolute Neutrophil 21.1 K/uL (1.8-8.0); Basophils % 0.1 % (0-1.3); Eosinophils % 0.5 % (0-4.4); Hematocrit 29.1 % (39.6-49.0); Hemoglobin 9.1 g/dL (13.6-17.9); Lymphocytes % 2.9 % (15.3-44.8); MCH 24.9 pg (27.0-35.0); MCHC 31.2 g/dL (32.0-36.0); MCV 79.7 fL (80-100); MPV 9.1 fL (7.6-11.3); Neutrophils % 90.5 % (41.7-73.7); Nucleated Red Blood Cells % 0.1 % (0-0); Platelets 274 thou/uL (152-406); RBC Red Blood Cell Count 3.65 M/uL (4.33-5.43); Red Cell Distribution Width 19.4 % (12.1-15.2)
--- NOTE | 2023-06-29 08:04 | RAD REPORT ---
EXAM DESCRIPTION: RAD - Chest Single View - 06/29/2023 7:56 am CLINICAL HISTORY: DYSPNEA COMPARISON: Chest Single View dated 09/26/2022; Chest Single View dated 09/22/2022 FINDINGS: Lines: None. Lungs: Low lung volumes with underpenetration. Neither lung bases well assessed, particularly left rebekah ng base, however. Edema may be present. Pleural: No significant pleural effusions or pneumothorax. Cardiac: Cardiomegaly. Mediastinum: Within normal limits. Bones: No acute fractures. Other: None IMPRESSION: Low lung volumes with underpenetration. Possible edema. Lung bases not well assessed due to underpenetration.
[2023-06-29 08:07] LABS: PT Prothrombin Time 18.5 SECONDS (9.5-12.5); PTT, Activated Partial Thromb 29.8 SECONDS (24.3-36.9); Protime INR 1.71
[2023-06-29 08:22] LABS: Albumin 2.5 g/dL (3.4-5.0); Albumin/Globulin Ratio 0.4 (1.1-1.8); Anion Gap 20.4 mEq/L (5.0-15.0); Bilirubin Total 1.3 mg/dL (0.2-1.0); Globulin 5.6 g/dL (2.3-3.5); Potassium 4.4 mEq/L (3.5-5.1); Protein, Total 8.1 g/dL (6.4-8.2)
[2023-06-29] MEDS ORDERED: NA CHLORIDE 0.9% 100 ML ONE (08:22)
[2023-06-29] MEDS ORDERED: VANCOMYCIN 1 GM/VIAL ONE (08:22)
[2023-06-29] MEDS ORDERED: LORazepam 2 MG/ML VIAL ONE (08:22)
[2023-06-29] MEDS ORDERED: NA CHLORIDE 0.9% 250 ML ONE (08:22)
[2023-06-29 08:23] LABS: Troponin High Sensitivity 78.3 pg/mL (<58.9)
[2023-06-29] MEDS ORDERED: CEFEPIME 1 GM/VIAL ONE (08:23)
[2023-06-29 08:33] LABS: Band Neutrophils 4 % (0-1); Differential Total Cells Count 100; Lymphocytes 9 % (15-42); Monocytes 9 % (0-10); Segmented Neutrophils 78 % (40-80)
[2023-06-29 08:34] LABS: Blood Morphology Comment NOT SEEN (NOT SEEN); Dohle Bodies PRESENT; Platelet Estimate ADEQ; Toxic Granulation 2+
--- NOTE | 2023-06-29 08:45 | EDPHYS ---
Physician Documentation [facility] Name: Maurizio Frias Age: 48 yrs Sex: Male : 1975 Arrival Date: 06/29/2023 Time: 07:30 Bed 15 Private MD: ED Physician Martinez Vogt HPI: 06/28 07:34 This 48 yrs old Male presents to ER via Unassigned with complaints of sob. rn 07:34 The patient has shortness of breath at rest, with light activity. Onset: The rn symptoms/episode began/occurred at an unknown time. The patient's shortness of breath has no apparent modifying factors, is aggravated by exertion. Associated signs and symptoms: Pertinent positives: This patient does not have any pertinent positive signs or symptoms associated with shortness of breath. Pertinent negatives: fever, hemoptysis. Severity of symptoms: At their worst the symptoms were moderate in the emergency department the symptoms are unchanged. The patient has not experienced similar symptoms in the past. Patient reports called 911 for 2 reasons. First was back pain which is chronic, denies new injury, reports seen by PCP and back specialist recently without clear etiology of his back pain. No bowel or bladder issues. No abdominal pain. No weakness or numbness. Patient also reports shortness of breath. Unknown onset. Associated with swelling of the bilateral lower extremities. No fever or productive cough. No history of DVT or PE.. Historical: - Allergies: 07:30 No Known Allergies; aa5 - PMHx: 07:30 Hyperlipidemia; Hypertension; chronic back pain (Unknown); CHF (Hypertension); aa5 - Immunization history:: Adult Immunizations unknown. - Infectious Disease History:: Denies. - Family history:: not pertinent. - Hospitalizations: : No recent hospitalization is reported. - Social history:: Smoking status: Patient denies any tobacco usage or history of. ROS: 07:34 Constitutional: Negative for fever, chills, and weight loss, Neck: Negative for injury, rn pain, and swelling, Cardiovascular: Positive for swelling, negative for chest pain Respiratory: Positive for shortness of breath Abdomen/GI: Negative for abdominal pain, nausea, vomiting, diarrhea, and constipation, Back: Positive for back pain, negative for injury MS/Extremity: Positive for swelling to bilateral lower extremities. Skin: Positive for redness to left leg Neuro: Negative for headache, weakness, numbness, tingling, and seizure, Exam: 07:34 Constitutional: Overweight male, disheveled, tachypneic Head/Face: Normocephalic, rn atraumatic. Cardiovascular: Tachycardic, regular. No pulse deficits Respiratory: Moderate tachypnea, diminished at bases, no wheezing Abdomen/GI: Soft, nontender, subcutaneous edema throughout lower abdomen MS/ Extremity: 2+ pitting edema bilateral lower extremities, increased circumference to the left lower extremity, redness and warmth with blanching erythema to the left leg that travels upward towards groin. Neuro: Awake and alert, GCS 15 07:46 ECG was reviewed by the Attending Physician. rn Vital Signs: 07:30 BP 139 / 107; Pulse 99; Resp 48 S; Temp 99.3(O); Pulse Ox 83% on R/A; Weight 131.54 kg aa5 (R); 08:08 BP 152 / 129; Pulse 94; Resp 52 S; Pulse Ox 97% on BiPAP; aa5 08:48 BP 132 / 114; Pulse 88; Resp 44; Pulse Ox 94% on BiPAP; aa5 09:30 BP 140 / 122; Pulse 88; Resp 33; Pulse Ox 94% on BiPAP; aa5 09:35 BP 92 / 66; Pulse 87; Resp 45 S; Pulse Ox 93% on BiPAP; aa5 09:39 BP 83 / 66; Pulse 87; Resp 38 S; Pulse Ox 94% on BiPAP; aa5 09:46 BP 101 / 67; Pulse 88; Resp 28 S; Pulse Ox 93% on BiPAP; aa5 10:25 BP 97 / 61; Pulse 86; Resp 34 S; Pulse Ox 94% on BiPAP; aa5 10:35 BP 98 / 67; Pulse 85; Resp 35 S; Pulse Ox 94% on BiPAP; aa5 11:00 BP 97 / 68; Pulse 88; Resp 33 S; Temp 99(O); Pulse Ox 94% on BiPAP; aa5 09:39 Dr. Louise notified of current BP reading. aa5 MDM: 07:31 Patient medically screened. rn 08:42 Differential diagnosis: CHF exacerbation, pneumonia, Pneumothorax pulmonary edema, rn Pulmonary Embolism. Data reviewed: vital signs, nurses notes, lab test result(s), EKG, radiologic studies, plain films, and as a result, I will admit patient. Consideration of Admission/Observation Patient was admitted/placed on observation. Escalation of care including admission/observation considered. Counseling: I had a detailed discussion with the patient and/or guardian regarding the historical points, exam findings, and any diagnostic results supporting the discharge/admit diagnosis, lab results, radiology results, the need for further work-up and treatment in the hospital. Response to treatment: the patient's symptoms have mildly improved after treatment, and as a result, I will admit patient. ED course: Patient with acute renal failure and congestive heart failure exacerbation, oxygen 83% on room air, also has cellulitis of the left lower extremity. Elevated lactate which I feel is due to hypoxemia and poor perfusion and not sepsis at this time. Will not give more fluid than what is in the antibiotic infusions at this time due to volume overload, pulmonary edema on chest x-ray and diffuse anasarca on exam. Anticipate repeat lactate will improve with BiPAP administration.. ED course: I personally spent 35 minutes engaged in work directly related to the individual patient's care. This does not include any time spent performing procedures. The patient has been deemed critically ill because of acute renal failure and CHF exacerbation, hypoxemia requiring BiPAP administration for acute respiratory distress.. 08:45 Management of patient was discussed with the following: Primary Care Provider: rn Discussed case with Dr. Louise, will come and see patient for admission. Independent interpretation of the following test(s) in the Emergency Department EKG: See my EKG interpretation above X-Ray: My interpretation is Chest x-ray images show pulmonary edema per my interpretation.. 06/28 07:32 Order name: Blood Culture Adult (2) 06/28 07:32 Order name: CBC with Diff; Complete Time: 08:38 06/28 07:32 Order name: CMP; Complete Time: 08:38 06/28 07:32 Order name: Lactate w/ 2H reflex if indic.; Complete Time: 08:38 06/28 07:32 Order name: Protime (+inr); Complete Time: 08:38 06/28 07:32 Order name: Ptt, Activated; Complete Time: 08:38 06/28 07:32 Order name: BNP; Complete Time: 08:38 06/28 07:32 Order name: Troponin High Sensitivity; Complete Time: 08:38 06/28 08:02 Order name: Glucose, Ancillary Testing; Complete Time: 08:05 EDAL 06/28 08:06 Order name: Manual Differential; Complete Time: 08:38 EDAL 06/28 10:01 Order name: Alcohol Serum/Plasma EDAL 06/28 10:01 Order name: Thyroid Stimulating Hormone EDAL 06/28 10:01 Order name: Troponin High Sensitivity EDAL 06/28 10:01 Order name: Urinalysis w/ reflexes EDAL 06/28 10:01 Order name: CBC with Automated Diff EDAL 06/28 10:01 Order name: CBC with Automated Diff EDMS 06/28 10:01 Order name: CBC with Automated Diff EDMS 06/28 10:01 Order name: CBC with Automated Diff EDMS 06/28 10:01 Order name: Comprehensive Metabolic Panel EDAL 06/28 10:01 Order name: Comprehensive Metabolic Panel [facility] 06/28 10:01 Order name: Comprehensive Metabolic Panel [facility] 06/28 10:01 Order name: Comprehensive Metabolic Panel [facility] 06/28 07:32 Order name: Chest Single View XRAY; Complete Time: 08:05 rn 06/28 07:42 Order name: BIPAP 06/28 10:01 Order name: Echo with Doppler EDAL 06/28 10:31 Order name: US EDAL 06/28 07:32 Order name: EKG; Complete Time: 07:33 rn 06/28 10:01 Order name: CONS Physician Consult [facility] 06/28 07:32 Order name: Accucheck; Complete Time: 07:53 rn 06/28 07:32 Order name: Cardiac monitoring; Complete Time: 07:39 rn 06/28 07:32 Order name: EKG - Nurse/Tech; Complete Time: 07:39 rn 06/28 07:32 Order name: IV Saline Lock - Large Bore; Complete Time: 07:53 rn 06/28 07:32 Order name: Labs collected and sent; Complete Time: 07:53 rn 06/28 07:32 Order name: O2 Per Protocol; Complete Time: 07:39 rn 06/28 07:32 Order name: O2 Sat Monitoring; Complete Time: 07:39 rn 06/28 07:32 Order name: Vital Signs; Complete Time: 07:39 rn EC:46 Rate is 97 beats/min. Rhythm is regular. QRS [place] is Normal. LA interval is normal. QRS rn interval is normal. QT interval is normal. No Q waves. T waves are Normal. No ST changes noted. Clinical impression: NSR w/ Non-specific ST/T Changes. Interpreted by me. Reviewed by me. Administered Medications: 07:57 Drug: morphine IVP or IV 4 mg IVP once over 4 mins Route: IVP; Infused Over: 4 mins; aa5 Site: right antecubital; 08:02 Follow up: Response: No adverse reaction aa5 08:30 Follow up: Response: No adverse reaction; Pain is decreased aa5 08:30 Drug: Ativan IVP 0.5 mg IVP once Route: IVP; Site: right antecubital; aa5 08:32 Follow up: Response: No adverse reaction aa5 08:32 Drug: Cefepime IVPB 1 grams IVPB at 200 ml/hr once over 30 mins; (mix in NS 100 mL) aa5 Route: IVPB; Rate: 200 ml/hr; Infused Over: 30 mins; Site: right wrist; 08:49 Follow up: Response: No adverse reaction aa5 09:02 Follow up: Response: No adverse reaction; IV Status: Completed infusion aa5 09:03 Drug: vancoMYCIN IVPB 1 grams IVPB once over 2 hrs Route: IVPB; Infused Over: 2 hrs; aa5 Site: right wrist; 09:22 Follow up: Response: No adverse reaction aa5 11:03 Follow up: Response: No adverse reaction; IV Status: Completed infusion aa5 Disposition: 08:42 Critical Care:. rn Disposition Summary: 06/29/23 08:45 Hospitalization Ordered Notes: Hospitalization Status: Inpatient Admission rn Provider: Fab Louise rn Condition: Stable rn Problem: new rn Symptoms: have improved rn Bed/Room Type: Standard rn Location: Intensive Care Unit(06/29/23 10:50) eb Room Assignment: 4-(06/29/23 10:50) eb Diagnosis - Acute kidney failure, unspecified rn - Acute pulmonary edema rn - Hypoxemia rn - Cellulitis of left lower limb rn Forms: - Medication Reconciliation Form rn - SBAR form rn - Leadership Thank You Letter buyer intern time excluding procedures: 08:42 Critical care time: Bedside Care: 35 minutes. Total time: 35 minutes rn Signatures: Dispatcher [employer] Martinez Alvarado MD MD rn Calderon, Audri, RN RN aa5 Chiquita Estrada Corrections: (The following items were deleted from the chart) 07:33 07:33 BLOOD CULTURE*+BA.LAB.BRZ ordered. EDMS EDMS 07:33 07:33 CBC+H.LAB.BRZ ordered. EDMS EDMS 07:33 07:33 COMPREHENSIVE METABOLIC PANEL+C.LAB.BRZ ordered. EDMS EDMS 07:33 07:33 LACTATE+C.LAB.BRZ ordered. EDMS EDMS 07:33 07:33 PROTIME (+INR)+COAG.LAB.BRZ ordered. EDMS EDMS 07:33 07:33 PTT, ACTIVATED+COAG.LAB.BRZ ordered. EDMS EDMS 07:33 07:33 PROBNP+C.LAB.BRZ ordered. EDMS EDMS 07:33 07:33 Troponin High Sensitivity+C.LAB.BRZ ordered. EDMS EDMS 07:33 07:33 Extremity Venous Uni Ltd+US.RAD.BRZ ordered. EDMS EDMS 08:42 07:33 Chest For PE Angio+CT.RAD.BRZ ordered. EDMS EDMS 10:50 08:45 Telemetry/MedSurg (Inpatient) rn chastity 10:50 08:45 rn chastity
--- NOTE | 2023-06-29 08:45 | ER ---
Nurse's Notes [facility] Name: Maurizio Frias Age: 48 yrs Sex: Male : 1975 Arrival Date: 06/29/2023 Time: 07:30 Bed 15 Private MD: Diagnosis: Acute kidney failure, unspecified;Acute pulmonary edema;Hypoxemia;Cellulitis of left lower limb Presentation: 06/28 07:30 Acuity: KATLYN 1 aa5 07:30 Chief complaint: EMS states: SOB and back pain, O2 sat 88% upon scene arrival and aa5 increased to 95% via non-rebreather. 07:30 Onset of symptoms was 2023. aa5 07:30 Method Of Arrival: EMS: [facility] aa5 07:30 Coronavirus screen: shortness of breath. Ebola Screen: Patient denies travel to an aa5 Ebola-affected area in the 21 days before illness onset. Initial Sepsis Screen: Does the patient meet any 2 criteria? RR > 20 per min. HR > 90 bpm. Yes Does the patient have a suspected source of infection? No. Patient's initial sepsis screen is negative. Risk Assessment: Do you want to hurt yourself or someone else? Patient reports no desire to harm self or others. Historical: - Allergies: 07:30 No Known Allergies; aa5 - PMHx: :30 Hyperlipidemia; Hypertension; chronic back pain (Unknown); CHF (Hypertension); aa5 - Immunization history:: Adult Immunizations unknown. - Infectious Disease History:: Denies. - Family history:: not pertinent. - Hospitalizations: : No recent hospitalization is reported. - Social history:: Smoking status: Patient denies any tobacco usage or history of. Screenin:30 [facility] ED Fall Risk Assessment (Adult) History of falling in the last 3 months, aa5 including since admission No falls in past 3 months (0 pts) Confusion or Disorientation No (0 pts) Intoxicated or Sedated No (0 pts) Impaired Gait No (0 pts) Mobility Assist Device Used No (0 pt) Altered Elimination No (0 pt) Score/Fall Risk Level 0 - 2 = Low Risk Oriented to surroundings, Maintained a safe environment, Educated pt \\T\\ family on fall prevention, incl call for assistance when getting out of bed, Assessed \\T\\ reinforced patient's understanding of fall precautions. Abuse screen: Denies threats or abuse. Nutritional screening: No deficits noted. Tuberculosis screening: No symptoms or risk factors identified. Assessment: 07:30 General: Appears distressed, uncomfortable, Behavior is cooperative, Pt states "I've aa5 been like this for weeks but it got worse a few days ago" . Pain: Complains of pain in lumbar area, left low back and right low back Pain currently is 10 out of 10 on a pain scale. Quality of pain is described as sharp, Pain began is chronic Is continuous, Aggravated by repositioning. Neuro: Level of Consciousness is awake, alert, obeys commands, Oriented to person, place, time, situation. Cardiovascular: Heart tones S1 S2 present 4+ pitting edema noted to left leg, 3+ pitting edema noted to right leg, 3+ pitting edema noted to left arm. Rhythm is sinus rhythm. Respiratory: Reports shortness of breath at rest Airway is patent Respiratory effort is labored, shallow, Respiratory pattern is regular, symmetrical, tachypnea Breath sounds are diminished bilaterally. the patient has severe shortness of breath. GI: Abdomen is distended, edema noted. : No signs and/or symptoms were reported regarding the genitourinary system. EENT: No signs and/or symptoms were reported regarding the EENT system. Derm: Skin is pink, warm \\T\\ dry. redness noted to left leg, pt states "I didn't even notice that my leg was red". Musculoskeletal: Swelling present in left arm. 07:57 Reassessment: RT at bedside placing pt on bi-pap. aa5 08:32 Reassessment: Pt appears more comfortable at this time, states "I feel sleepy". aa5 08:32 Neuro: Level of Consciousness is awake, alert, obeys commands, Oriented to person, aa5 place, time, situation. Respiratory: Airway is patent Respiratory effort is labored, shallow, Respiratory pattern is tachypnea. Derm: Skin is pink, warm \\T\\ dry. 09:30 Reassessment: Pt resting in bed with eyes closed, respirations remain shallow and aa5 tachypneic, skin is pink/warm/dry. . 09:32 Reassessment: Dr. Louise (admitting doctor) at bedside . aa5 10:30 Reassessment: Pt remains resting in bed with eyes closed, respirations remain shallow aa5 and tachypneic, skin is pink/warm/dry. . 11:30 Neuro: Level of Consciousness is awake, alert, obeys commands, Oriented to person, aa5 place, time, situation. Respiratory: Airway is patent Respiratory effort is shallow, Respiratory pattern is tachypnea. Derm: Skin is pink, warm \\T\\ dry. Vital Signs: 07:30 BP 139 / 107; Pulse 99; Resp 48 S; Temp 99.3(O); Pulse Ox 83% on R/A; Weight 131.54 kg aa5 (R); 08:08 BP 152 / 129; Pulse 94; Resp 52 S; Pulse Ox 97% on BiPAP; aa5 08:48 BP 132 / 114; Pulse 88; Resp 44; Pulse Ox 94% on BiPAP; aa5 09:30 BP 140 / 122; Pulse 88; Resp 33; Pulse Ox 94% on BiPAP; aa5 09:35 BP 92 / 66; Pulse 87; Resp 45 S; Pulse Ox 93% on BiPAP; aa5 09:39 BP 83 / 66; Pulse 87; Resp 38 S; Pulse Ox 94% on BiPAP; aa5 09:46 BP 101 / 67; Pulse 88; Resp 28 S; Pulse Ox 93% on BiPAP; aa5 10:25 BP 97 / 61; Pulse 86; Resp 34 S; Pulse Ox 94% on BiPAP; aa5 10:35 BP 98 / 67; Pulse 85; Resp 35 S; Pulse Ox 94% on BiPAP; aa5 11:00 BP 97 / 68; Pulse 88; Resp 33 S; Temp 99(O); Pulse Ox 94% on BiPAP; aa5 09:39 Dr. Louise notified of current BP reading. aa5 ED Course: 07:30 Arm band placed on. aa5 07:30 Patient has correct armband on for positive identification. Placed in gown. Bed in low aa5 position. Call light in reach. Side rails up X2. Client placed on continuous cardiac and pulse oximetry monitoring. NIBP monitoring applied. integrated circuit ic layout designer on. Pulse ox on. NIBP on. 07:31 Patient arrived in ED. rn 07:31 Martinez Vogt MD is Attending Physician. rn 07:37 Neema Yepez, EMELI is Primary Nurse. aa5 07:38 Triage completed. aa5 07:48 Inserted saline lock: 18 gauge in right antecubital area, using aseptic technique. aa5 07:50 Initial lab(s) drawn, by me, sent to lab. First set of blood cultures drawn by me. aa5 07:56 Chest Single View XRAY In Process Unspecified. EDMS 08:10 Second set of blood cultures drawn by me. aa5 08:20 Inserted saline lock: 20 gauge in right wrist, using aseptic technique. aa5 08:44 Fab Louise MD is Hospitalizing Provider. rn 11:30 No provider procedures requiring assistance completed. Patient admitted, IV remains in aa5 place. Administered Medications: 07:57 Drug: morphine IVP or IV 4 mg IVP once over 4 mins Route: IVP; Infused Over: 4 mins; aa5 Site: right antecubital; 08:02 Follow up: Response: No adverse reaction aa5 08:30 Follow up: Response: No adverse reaction; Pain is decreased aa5 08:30 Drug: Ativan IVP 0.5 mg IVP once Route: IVP; Site: right antecubital; aa5 08:32 Follow up: Response: No adverse reaction aa5 08:32 Drug: Cefepime IVPB 1 grams IVPB at 200 ml/hr once over 30 mins; (mix in NS 100 mL) aa5 Route: IVPB; Rate: 200 ml/hr; Infused Over: 30 mins; Site: right wrist; 08:49 Follow up: Response: No adverse reaction aa5 09:02 Follow up: Response: No adverse reaction; IV Status: Completed infusion aa5 09:03 Drug: vancoMYCIN IVPB 1 grams IVPB once over 2 hrs Route: IVPB; Infused Over: 2 hrs; aa5 Site: right wrist; 09:22 Follow up: Response: No adverse reaction aa5 11:03 Follow up: Response: No adverse reaction; IV Status: Completed infusion aa5 Medication: 11:30 VIS not applicable for this client. aa5 Intake: 11:00 Pt attempted to use the urinal with assistance twice and was unable to void. aa5 Output: 11:00 Urine: 0ml; Total: 0ml. aa5 11:00 Pt attempted to use the urinal with assistance twice and was unable to void. aa5 Outcome: 08:45 Decision to Hospitalize by Provider. rn 11:30 Admitted to ICU accompanied by nurse, accompanied by tech, via stretcher, room ICU 3 , aa5 with oxygen, on monitor, with chart, Report called to EMELI Thomas 11:30 Condition: stable 11:30 Instructed on the need for admit, Demonstrated understanding of instructions, 11:41 Patient left the ED. eb Signatures: Dispatcher [employer] EDMS Martinez Vogt MD MD rn Calderon, EMELI Bethea RN aa5 Chiquita Estrada eb Corrections: (The following items were deleted from the chart) 07:38 07:31 Arm band placed on aa5 aa5 08:44 07:30 BP 139 / 107; Pulse 99bpm; Resp 48bpm; Spontaneous; Pulse Ox 83% RA; aa5 aa5 08:59 07:30 Respiratory: Reports shortness of breath at rest Airway is patent Respiratory aa5 effort is labored, shallow, Respiratory pattern is regular, symmetrical, tachypnea the patient has severe shortness of breath aa5 10:05 09:39 BP 83 / 66; Pulse 87bpm; Resp 18bpm; Spontaneous; Pulse Ox 94% BiPAP; Dr. Louise aa5 notified of current BP reading. ; aa5
--- NOTE | 2023-06-29 09:43 | P.HP ---
Certification for Inpatient Patient admitted to: Inpatient With expected LOS: >2 Midnights Practitioner: I am a practitioner with admitting privileges, knowledge of patient current condition, hospital course, and medical plan of care. Services: Services provided to patient in accordance with Admission requirements found in Title 42 Section 412.3 of the Code of Federal Regulations Patient History Date of Service: 06/29/23 Primary Care Provider: Aspen Reason for admission: Acute diastolic chf with renal failure History of Present Illness: Patient is an office patient of [facility] with a history of htn, diastolic chf, sleep apnea. He has come to the office with back pain the last 2 weeks. Was given a short course of meloxicam. He did not have insurance so was trying to make his treatment cost effective. The patient also had an xray ordered. He did not get this. However came to the ER today with back pain. Was hypoxic and found to have pleural effusion. His creatine was elevated to 4.79. Started on bipap as well. He has some mild cellulitis on his left leg. Allergies No Known Allergies Allergy (Unverified 09/22/22 10:07) Home Medications: Amlodipine Besylate/Benazepril [Amlodipine-Benazepril 5-20 mg] 1 cap PO DAILY 09/22/22 Carvedilol [Coreg] 12.5 mg PO BID 09/22/22 Chlorthalidone 1 tab PO DAILY 09/22/22 Aspirin 81 mg PO DAILY AFTER SUPPER 90 Days #90 tab.chew 09/28/22 Atorvastatin Calcium [Lipitor] 80 mg PO DAILY AFTER SUPPER 90 Days #90 tab 09/28/22 Nitroglycerin 0.3 mg SL CONT #10 09/28/22 - Past Medical/Surgical History Diabetic: No -: HTN - Family History Father -: Heart disease Mother -: Heart disease, Diabetes Brother -: Hypertension Sister -: Hypertension - Social History Alcohol use: Yes CD- Drugs: No Caffeine use: No Review of Systems 10-point ROS is otherwise unremarkable Respiratory: Shortness of Breath Musculoskeletal: Back Pain Physical Examination - Vital Signs Pulse: 96 Pulse Ox (%): 97 - Physical Exam General: Alert, In no apparent distress HEENT: Atraumatic, PERRLA, Mucous membr. moist/pink, EOMI, Sclerae nonicteric Neck: Supple, 2+ carotid pulse no bruit, No LAD, Without JVD or thyroid abnormality Respiratory: Rhonchi/gurgles (distant basilar ) Cardiovascular: Regular rate/rhythm, Normal S1 S2, Edema (1+ on the right leg) Gastrointestinal: Normal bowel sounds, No tenderness Musculoskeletal: No tenderness Integumentary: No rashes Neurological: Normal gait, Normal speech, Normal strength at 5/5 x4 extr, Normal tone, Normal affect Lymphatics: No axilla or inguinal lymphadenopathy - Studies Laboratory Data (last 24 hrs) 06/29/23 06/29/23 06/29/23 07:50 07:50 07:50 WBC 23.30 H Hgb 9.1 L Hct 29.1 L Plt Count 274 PT 18.5 H INR 1.71 APTT 29.8 Sodium 124 L Potassium 4.4 BUN 118 H Creatinine 4.79 H Glucose 118 H Total Bilirubin 1.3 H AST 46 H ALT 52 Alkaline Phosphatase 203 H Assessment and Plan - Problems (Diagnosis) (1) Acute exacerbation of CHF (congestive heart failure) Current Visit: No Status: Acute Plan: will give him one dose of lasix. Continue bipap and will admit the patient to the icu. Will check serial troponins and consult to Dr. Salinas/Melanie. Qualifiers: Heart failure type: diastolic Qualified Code(s): I50.33 - Acute on chronic diastolic (congestive) heart failure (2) Acute renal failure Current Visit: No Status: Acute Plan: discussed the patient with Dr. Sandoval. Order a U/a. Will monitor I's and O's Qualifiers: Acute renal failure type: unspecified Qualified Code(s): N17.9 - Acute kidney failure, unspecified (3) Essential (primary) hypertension Current Visit: No Status: Acute Plan: He is very labile in the ER. going from 140/100 to 96/60's Will hold his carvedilol(12.5Mg) and amlodipine-benzapril((5-20) and chlorthalidone 50mg Will use prn hydralazine (4) Obstructive sleep apnea (adult) (pediatric) Current Visit: No Status: Acute (5) Cellulitis Current Visit: Yes Status: Acute Plan: mild. Will start him on po amox-clauvinate as to not increase fluids in the patient Qualifiers: Site of cellulitis: extremity Site of cellulitis of extremity: lower extremity Laterality: right Qualified Code(s): L03.115 - Cellulitis of right lower limb Discharge Plan: Home Plan to discharge in: Greater than 2 days - Advance Directives Does patient have a Living Will: No Does patient have a Durable POA for Healthcare: No - Code Status/Comfort Care Code Status Assessed: Yes Code Status: Full Code Physician Review: Patient Assessed, Agree with Above Assessment and Plan Critical Care: Yes Time Spent Managing Pts Care (In Minutes): 50
[2023-06-29] MEDS ORDERED: HYDRALAZINE HCL 20 MG/ML VIAL IV PRN (09:59)
[2023-06-29] MEDS ORDERED: FUROSEMIDE 40 MG/4 ML VIAL ONE (10:09)
[2023-06-29] MEDS: FUROSEMIDE 40 MG/4 ML VIAL IV ONE (10:21)
--- NOTE | 2023-06-29 10:31 | RAD REPORT ---
EXAM DESCRIPTION: US - Extremity Venous Uni Ltd - 06/29/2023 10:26 am CLINICAL HISTORY: Swelling COMPARISON: None. TECHNIQUE: Real-time sonographic evaluation of the left lower extremity deep venous system was perfo rmed. FINDINGS: Normal compressibility, flow augmentation, phasic flow and spontaneous flow is identified in the left lower extremity deep venous system. No intraluminal filling defects seen. IMPRESSION: No DVT in the left lower extremity.
[2023-06-29] MEDS: FUROSEMIDE 40 MG/4 ML VIAL IV SCH (14:00)
[2023-06-29] MEDS: HEPARIN 5000 UNIT/ML 1 ML VIAL SQ SCH (14:53)
--- NOTE | 2023-06-29 15:00 | RAD REPORT ---
EXAM DESCRIPTION: US - Renal Ultrasound-Complete - 06/29/2023 2:08 pm CLINICAL HISTORY: Acute Renal Failure Flank pain COMPARISON: <Comparisons> FINDINGS: Both kidneys are normal in size, shape and echotexture. The right kidney measures 10.3 x 5.7 x 4.8 cm. No hydronephrosis, focal mass or perinephric fluid. The left kidney measures 10.3 x 6.4 x 4.4 cm. No hydronephrosis, focal mass or perinephric fluid. The urinary bladder is incompletely distended without gross abnormality seen. IMPRESSION: Unremarkable renal sonogram.
[2023-06-29 16:22] LABS: Sqamous Epithelial <5 /HPF (None Seen); Urine Bacteria <20 /HPF (<20); Urine Bilirubin 1+ (Negative); Urine Blood Negative (Negative); Urine Clarity Extremely Turbid (Clear); Urine Color Dark-Yellow (Yellow); Urine Crystals Unidentified Few /HPF (None Seen); Urine Culture Reflex Order NOT NEEDED; Urine Glucose NEGATIVE (Negative); Urine Ketones TRACE (Negative); Urine Microscopic Reflex YN ORDER UMIC; Urine Mucus Slight /HPF (None Seen); Urine Nitrite NEGATIVE (Negative); Urine Protein 1+ (Negative); Urine Urobilinogen 1+ (Normal); Urine WBC Clump Occasional /HPF (None Seen); Urine Yeast (Budding) Occasional /HPF (None Seen)
[2023-06-29] MEDS: clonazePAM 0.5 MG TAB PO PRN (16:41)
[2023-06-29] MEDS ORDERED: ENOXAPARIN 40 MG/0.4 ML SQ SCH (17:00)
--- NOTE | 2023-06-29 17:06 | CON ---
Date of Consultation: 06/29/2023 Reason For Consultation: Shortness of breath. History Of Present Illness: A 48-year-old male, history of hypertension, diabetes, obstructive sleep apnea, diastolic heart failure, presented with shortness of breath and hypoxia, found to have bilate ral pleural effusion, was admitted to the hospital, requiring BiPAP. Denies having any active chest pain. Past Medical History: As outlined above in the HPI. Medications: Refer reconciliation sheet for detailed list. Allergies: NO KNOWN DRUG ALLERGIES. Family History: No premature coronary artery disease or cancer. Social History: Does not smoke or drink. Does not use any drugs. Review of Systems: All systems reviewed are negative except above mentioned in HPI. Physical Examination: Vital Signs: Temperature 98.0, pulse 85, breathing at 23, blood pressure is 98/50, saturating 96% an d that is on BiPAP. General: A pleasant middle-aged male, slightly uncomfortable due to shortness of breath. Head and Neck: Pupils are equal, reactive to light. Intact eye movements. No JVD. No cervical lym phadenopathy. Neck is supple. Thyroid is not enlarged. Lungs: Rhonchi bilaterally. No accessory muscle use. No muscle retraction. Heart: Regular rate and rhythm. No extra sounds. Abdomen: Soft, nontender. Bowel sounds positive. No organomegaly. No masses or hernia. No rigidi ty or rebound. Extremities: No clubbing, cyanosis. Positive edema. Neurological: Alert, awake, oriented x3. No acute focal deficits appreciated. Investigations: Sodium 124, CO2 is 17, BUN is 118, creatinine is 4.7. Troponin 78 and then 84. NT- proBNP 6800. Chest x-ray was not a good exam. Assessment And Recommendation: 1.Acute respiratory failure. He definitely has a component of diastolic heart failure, but I am not sure if he is over-diuresed. He is extremely hypotensive, on Lasix. I do not believe answer is Las ix to his condition. Obtain an echocardiogram and obtain nephrology consult today to evaluate all th chantel electrolyte abnormalities and acute kidney failure. He is severely uremic likely from diuretics from outpatient as he had normal kidney function a year ago. 2.Acute renal failure, probably over-diuresis. I will hold off the Lasix now and consult Nephrology and obtain an echocardiogram and repeat a chest x-ray. If cannot do a good chest x-ray, do a CT sca n without contrast to look for pleural effusion. I will discuss the case with Dr. Louise. /YAKELIN Voice ID: [id number] Report ID: [id number]
[2023-06-29] MEDS: VANCOMYCIN 1 GM in NA CHLORIDE 0.9% 250 ML IVPB ONE (22:58)
[2023-06-29 23:14] LABS: Albumin 2.3 g/dL (3.4-5.0); Albumin/Globulin Ratio 0.4 (1.1-1.8); Anion Gap 20.2 mEq/L (5.0-15.0); Globulin 5.2 g/dL (2.3-3.5); Potassium 4.2 mEq/L (3.5-5.1); Protein, Total 7.5 g/dL (6.4-8.2)
--- NOTE | 2023-06-30 01:45 | CON ---
Date of Consultation: 06/29/2023 Chief Complaint: Acute kidney injury, cardiorenal syndrome, acute diastolic congestive heart failure, anasarca. History Of Present Illness: The patient is admitted to ICU for severe shortness of breath, anasarca, fluid overload. He was found to have elevated BUN and creatinine level. The serum creatinine level was 4.79. Previously, the patient had workup done back in 2022 and creatinine level was 1.2. The patient was seen in the office by his primary care physician and referred to the hospital for acute kidney injury, acute diastolic congestive heart failure with fluid overload and anasarca. The patient has history of diabetes mellitus, hypertension, congestive heart failure, sleep apnea. Previously, he was complaining of back pain and received meloxicam for back pain. He denies lower urinary tract symptoms. Denies kidney colic. Denies hematuria or dysuria. Review of Systems: Constitutional: Denies fever, chills. Eyes: Denies vision changes. Ears, Nose, Mouth and Throat: Denies sore throat, earache. Respiratory: Has shortness of breath. Denies wheezing, cough, hemoptysis. GI: Denies nausea, vomiting. : Denies dysuria, hematuria. All other systems reviewed and all are negative. Past Medical History: Hypertension. Denies diabetes. Family History: Father with heart disease. Mother with diabetes and heart disease. Brother has hypertension. Sister has hypertension. Social History: Denies tobacco. He denies drugs. Alcohol use, yes. Physical Examination: General: Patient is alert, on BiPAP, not in acute distress. Eyes: Anicteric sclerae. EOMI. Ears, Nose, Mouth, and Throat: Oral mucosa moist. No pallor. Neck: Supple. No bruits. Lungs: Clear breath sounds bilaterally. Heart: S1, S2. No pericardial friction rub. Abdomen: Obese, soft, nontender. No rebound. No guarding. Extremities: Edema in lower and upper extremity. Anasarca. Neurologic: Moving extremities. No tremor. Laboratory Data: WBC 23.3, hemoglobin 9.1, platelet count 274,000. Sodium 124, potassium 4.4, chloride 119, BUN is 118, creatinine 4.79, glucose 118, AST 46, ALT 52. Impression And Plan: Hyponatremia, hypoosmolar, acute kidney injury, severe. The patient is admitted to ICU for respiratory distress. The patient is on IV Lasix for volume control and to treat cardiorenal syndrome. Patient may be a candidate for dialysis if renal function does not improve. Radiology findings : There is no hydronephrosis, no focal mass, no perinephric fluid. Right kidney is 10.3 cm and left kidney 10.3 cm in length. Microscopic hematuria , Urinalysis was done during this admission and it showed RBCs and WBCs. Plan is to check serologies for possible vasculitis. Patient may need renal biopsy to rule out rapidly progressive glomerulonephritis. Plan is to check UA and urine culture to rule out urinary tract infection. Congestive herat failure , with hypoxemic respiratory failure, anasarca, continue IV diuretic , monitor renal panel, patient will need dialysis to control fluid overload and azotemia. Hypotension , midodrine was started , patient may require IV pressor, recommend blood culture and urine culture to rule out sepsis. hyponatremia due to acute kidney injury and congestive heart exacerbation , continue lasix , po fluid restriction and low Sodium diet, advance lasix dose according to UO and BP. EB/MODL Voice ID: [id number] Report ID: [id number] KATHRYN
[2023-06-30 05:00] LABS: Absolute Lymphocytes (CBC) 1.3 K/uL (0.7-4.9); Absolute Neutrophil 17.3 K/uL (1.8-8.0); Basophils % 0.2 % (0-1.3); Hematocrit 26.7 % (39.6-49.0); Hemoglobin 8.1 g/dL (13.6-17.9); Lymphocytes % 6.4 % (15.3-44.8); MCH 24.4 pg (27.0-35.0); MCHC 30.3 g/dL (32.0-36.0); MCV 80.7 fL (80-100); MPV 9.9 fL (7.6-11.3); Monocytes % 9.5 % (3.3-12.3); Neutrophils % 83.9 % (41.7-73.7); Nucleated Red Blood Cells % 0.2 % (0-0); Platelets 219 thou/uL (152-406)
[2023-06-30 05:33] LABS: Albumin/Globulin Ratio 0.4 (1.1-1.8); Anion Gap 19.1 mEq/L (5.0-15.0); Bilirubin Total 0.8 mg/dL (0.2-1.0); Globulin 5.3 g/dL (2.3-3.5); Magnesium 1.9 mg/dL (1.6-2.4); Potassium 4.1 mEq/L (3.5-5.1); Protein, Total 7.3 g/dL (6.4-8.2); Thyroid Stimulating Hormone 0.397 uIU/mL (0.358-3.740)
[2023-06-30] MEDS: NA CHLORIDE 0.9% 1,000 ML ONE (10:16)
--- NOTE | 2023-06-30 11:06 | P.PN ---
Subjective Date of Service: 06/30/23 Primary Care Provider: Aspen Chief Complaint: Acute diastolic chf with renal failure Subjective: New changes (good diuresis. Plans for dialysis today) Review of Systems 10-point ROS is otherwise unremarkable Respiratory: Shortness of Breath Physical Examination - Vital Signs Temperature: 97.4 F Blood Pressure: 106/63 Pulse: 88 Respirations: 23 Pulse Ox (%): 93 - Physical Exam General: Alert, In no apparent distress, Other (tiredness. Almost nodded off during he visit ) HEENT: Atraumatic, PERRLA, EOMI Neck: Supple, JVD not distended Respiratory: Clear to auscultation bilaterally, Normal air movement Cardiovascular: Normal S1 S2, Abnormal pulses (tachycardia) Gastrointestinal: Normal bowel sounds, No tenderness Musculoskeletal: No tenderness Integumentary: No rashes Neurological: Normal speech, Normal tone, Normal affect Lymphatics: No axilla or inguinal lymphadenopathy - Studies Microbiology Data (last 24 hrs): 06/29/23 07:50 Blood - Blood Blood Culture Gram Stain - Final 06/29/23 07:50 Blood - Blood Gram Stain - Final 06/29/23 08:10 Blood - Blood Blood Culture Gram Stain - Final 06/29/23 08:10 Blood - Blood Gram Stain - Final Assessment And Plan - Current Problems (Diagnosis) (1) Acute exacerbation of CHF (congestive heart failure) Current Visit: No Status: Acute Plan: will give him one dose of lasix. Continue bipap and will admit the patient to the icu. Will check serial troponins and consult to Dr. Salinas/Melanie. 06.29 Will restart the patients carvedilol. At a lower dose however Qualifiers: Heart failure type: diastolic Qualified Code(s): I50.33 - Acute on chronic diastolic (congestive) heart failure (2) Acute renal failure Current Visit: No Status: Acute Plan: discussed the patient with Dr. Sandoval. Order a U/a. Will monitor I's and O's 06/29 Had good output. Down 13lbs. Do not see correlating volume output. plans for starting dialysis today Qualifiers: Acute renal failure type: unspecified Qualified Code(s): N17.9 - Acute kidney failure, unspecified (3) Essential (primary) hypertension Current Visit: No Status: Acute Plan: He is very labile in the ER. going from 140/100 to 96/60's Will hold his carvedilol(12.5Mg) and amlodipine-benzapril((5-20) and chlorthalidone 50mg Will use prn hydralazine (4) Obstructive sleep apnea (adult) (pediatric) Current Visit: No Status: Acute (5) Cellulitis Current Visit: Yes Status: Acute Plan: mild. Will start him on po amox-clauvinate as to not increase fluids in the patient Qualifiers: Site of cellulitis: extremity Site of cellulitis of extremity: lower extremity Laterality: right Qualified Code(s): L03.115 - Cellulitis of right lower limb (6) Sepsis Current Visit: Yes Status: Acute Plan: continue vancomycin. will let pharmacy adjust the dosage. Qualifiers: Sepsis type: methicillin susceptible Staphylococcus aureus Sepsis acute organ dysfunction status: with acute organ dysfunction Severe sepsis acute organ dysfunction type: acute renal failure Severe sepsis shock status: without septic shock Discharge Plan: Home Plan to discharge in: Greater than 2 days - Code Status/Comfort Care Code Status Assessed: No Physician Review: Patient Assessed, Agree with Above Assessment and Plan Critical Care: Yes Time Spent Managing PTS Care (In Minutes): 25
[2023-06-30] MEDS: MIDODRINE HCL 5 MG TABLET PO SCH (13:11)
[2023-06-30] MEDS: LIDOCAINE 1% MPF 5 ML VIAL ONE (14:11)
--- NOTE | 2023-06-30 14:52 | RAD REPORT ---
EXAM DESCRIPTION: RAD - Chest Single View - 06/30/2023 2:45 pm CLINICAL HISTORY: L subclavian HD catheter COMPARISON: 06/29/2023. FINDINGS: Lines: Left subclavian approached dialysis catheter with tip in the region of the distal l eft brachiocephalic vein and proximal SVC. Lungs: Low lung volumes. Lungs not well assessed. Pleural: No significant pleural effusions or pneumothorax. Cardiac: Similar cardiomegaly . Mediastinum: Within normal limits. Bones: No acute fractures. Other: None IMPRESSION: Left subclavian approach dialysis catheter with tip at the distal left brachiocephalic v ein versus proximal SVC. No pneumothorax. Low lung volumes without definite acute process. .
--- NOTE | 2023-06-30 15:56 | P.CNS ---
Date of Consult: 06/30/23 PC: I was asked to see this 48-year-old male in regards to a placement of a temporary dialysis catheter. HPC: Patient is in CHF, is fluid overloaded, and requires dialysis for volume control as well and his kidney function PMHx: CHF, Social Hx: No known allergies Sys R: Has not felt well for a while, so this appears to run in his family. O/E: Awake alert patient is short of breath, did not question him extensively, vital signs are stable, O2 sat stable on nasal cannula HEENT: Not jaundiced Chest: Chest movement equal bilaterally Abd: NAD [place]: No evidence of any clavicular fractures Data: Chest x-ray shows volume overload Impression: Patient has been evaluated by medicine and by nephrology. They feel that he would benefit from the placement of an urgent dialysis catheter. The risks of the surgical procedure were explained. The possibility of bleeding, infection, pneumothorax and catheter malfunction were outlined. The fact that this is usually placed for short-term dialysis and sometimes require something more permanent was also discussed. Plan: I will place a left subclavian catheter.
--- NOTE | 2023-06-30 16:00 | P.OP ---
Preoperative diagnosis: Lack of vascular access Postoperative diagnosis: The same Primary procedure: Insertion of left subclavian dual port dialysis catheter Anesthesia: Local Estimated blood loss: Then 10 cc Operative Technique: After obtaining surgical consent and a timeout in the ICU, an IV bag was placed between the patient's shoulders. Attention was turned towards the left side of the chest. The area was prepped with a chlorhexidine solution, and draped in usual septic manner. After placing the patient in Trendelenburg position, the left subclavicular area injected with 1% lidocaine. A finder needle was used to cannulate the left subclavian vein. It took us 2 passes but we had good blood return on the second attempt. The guidewire was then passed easily down through the needle. The opening at the skin level of the guidewire was enlarged using an 11 blade. The 2 dilators were used to dilate up our tunnel. The catheter was then post to the guidewire, and using a modified Seldinger technique we were able to get up to the hub. The guidewire was now removed leaving the catheter in place. The catheter was then flushed with a saline solution. It was then sutured in place. A sterile dressing was applied. The patient was taken out of Trendelenburg position, placed back on his nasal cannula, his sats and blood pressure having remained stable throughout the procedure. Chest x-ray is pending. Complications: None Implants: 1 left subclavian temporary dialysis catheter Transferred to: Recovery Room Condition: Good
[2023-06-30] MEDS: ALBUMIN HUMAN 25% 100 ML IV ONE (16:58)
[2023-06-30] MEDS: carvediloL 3.125 MG TAB PO SCH (19:40)
[2023-06-30] MEDS: FUROSEMIDE 40 MG/4 ML VIAL IV SCH (20:30)
[2023-06-30 21:33] LABS: Anion Gap 18.5 mEq/L (5.0-15.0); Potassium 3.5 mEq/L (3.5-5.1)
[2023-07-01 07:38] LABS: Absolute Lymphocytes (CBC) 0.8 K/uL (0.7-4.9); Absolute Monocytes 2.5 K/uL (0.1-1.3); Absolute Neutrophil 14.6 K/uL (1.8-8.0); Basophils % 0.2 % (0-1.3); Hematocrit 26.6 % (39.6-49.0); Hemoglobin 8.4 g/dL (13.6-17.9); Lymphocytes % 4.6 % (15.3-44.8); MCH 24.8 pg (27.0-35.0); MCHC 31.4 g/dL (32.0-36.0); MCV 78.8 fL (80-100); Monocytes % 13.7 % (3.3-12.3); Neutrophils % 81.5 % (41.7-73.7); Nucleated Red Blood Cells % 0.1 % (0-0); Platelets 205 thou/uL (152-406); RBC Red Blood Cell Count 3.37 M/uL (4.33-5.43); Red Cell Distribution Width 18.9 % (12.1-15.2)
[2023-07-01 08:00] LABS: Albumin 2.4 g/dL (3.4-5.0); Albumin/Globulin Ratio 0.4 (1.1-1.8); Anion Gap 16.6 mEq/L (5.0-15.0); Globulin 5.6 g/dL (2.3-3.5); Magnesium 2.5 mg/dL (1.6-2.4); Potassium 3.6 mEq/L (3.5-5.1)
[2023-07-01 08:42] LABS: Blood Morphology Comment NOT SEEN (NOT SEEN); Differential Total Cells Count 100; Dohle Bodies PRESENT; Lymphocytes 2 % (15-42); Monocytes 12 % (0-10); Platelet Estimate ADEQ; Segmented Neutrophils 86 % (40-80)
[2023-07-01 09:11] LABS: Arterial Blood Carboxyhemoglob 1.2 % (0-1.5); Blood Gas Oxyhemoglobin 93.3 % (94-97); Blood Gas THB 8.4 g/dl (12-18); Blood O2 Saturation 95.6 % (92-98.5)
[2023-07-01] MEDS: carvediloL 3.125 MG TAB PO ONE (09:20)
--- NOTE | 2023-07-01 10:26 | RAD REPORT ---
EXAM DESCRIPTION: RADChest Single View07/01/2023 9:52 am CLINICAL HISTORY: sob COMPARISON: Chest Single View dated 06/30/2023; Chest Single View dated 06/29/2023; Chest Single View dated 09/26/2022; Chest Single View dated 09/22/2022 TECHNIQUE: Portable AP view of the chest. FINDINGS: Left subclavian catheter unchanged in position with tip projecting over the proximal SVC. The lungs are clear. No pneumothorax. Small bilateral pleural effusions with underlying atelectasis. The cardiomediastinal contours are unremarkable. IMPRESSION: No significant interval change. Small bilateral pleural effusions.
[2023-07-01] MEDS ORDERED: VANCOMYCIN 2 GM in NA CHLORIDE 0.9% 500 ML IVPB SCH (11:00)
[2023-07-01] MEDS ORDERED: ALBUMIN HUMAN 25% 100 ML IV ONE (11:12)
[2023-07-01] MEDS: ALBUMIN HUMAN 25% 100 ML IV ONE (11:19)
[2023-07-01] MEDS: MANNITOL 25% 12.5 GM/50 ML VIAL IV PRN (12:15)
--- NOTE | 2023-07-01 13:19 | P.PN ---
Subjective Date of Service: 07/01/23 Primary Care Provider: Aspen Chief Complaint: Acute diastolic chf with renal failure Subjective: No new changes Review of Systems 10-point ROS is otherwise unremarkable Respiratory: Other (tachypnea) Physical Examination - Vital Signs Temperature: 98.0 F Blood Pressure: 103/71 Pulse: 95 Respirations: 26 Pulse Ox (%): 95 - Physical Exam General: Alert, In no apparent distress HEENT: Atraumatic, PERRLA, EOMI Neck: Supple, JVD not distended Respiratory: Clear to auscultation bilaterally, Normal air movement Cardiovascular: Regular rate/rhythm, Normal S1 S2 Gastrointestinal: Normal bowel sounds, No tenderness Musculoskeletal: No tenderness Integumentary: No rashes Neurological: Normal speech, Normal tone, Normal affect Lymphatics: No axilla or inguinal lymphadenopathy - Studies Microbiology Data (last 24 hrs): 06/29/23 08:10 Blood - Blood Aerobic Blood Culture - Final Streptococcus Dysgalactiae 06/29/23 08:10 Blood - Blood Blood Culture Gram Stain - Final 06/29/23 08:10 Blood - Blood Anaerobic Blood Culture - Final Streptococcus Dysgalactiae 06/29/23 08:10 Blood - Blood Gram Stain - Final 06/29/23 07:50 Blood - Blood Aerobic Blood Culture - Final Streptococcus Dysgalactiae 06/29/23 07:50 Blood - Blood Blood Culture Gram Stain - Final 06/29/23 07:50 Blood - Blood Anaerobic Blood Culture - Final Streptococcus Dysgalactiae 06/29/23 07:50 Blood - Blood Gram Stain - Final Assessment And Plan - Current Problems (Diagnosis) (1) Acute exacerbation of CHF (congestive heart failure) Current Visit: No Status: Acute Plan: will give him one dose of lasix. Continue bipap and will admit the patient to the icu. Will check serial troponins and consult to Dr. Salinas/Melanie. 06.29 Will restart the patients carvedilol. At a lower dose however Qualifiers: Heart failure type: diastolic Qualified Code(s): I50.33 - Acute on chronic diastolic (congestive) heart failure (2) Acute renal failure Current Visit: No Status: Acute Plan: discussed the patient with Dr. Sandoval. Order a U/a. Will monitor I's and O's 06/29 Had good output. Down 13lbs. Do not see correlating volume output. plans for starting dialysis today Qualifiers: Acute renal failure type: unspecified Qualified Code(s): N17.9 - Acute kidney failure, unspecified (3) Essential (primary) hypertension Current Visit: No Status: Acute Plan: He is very labile in the ER. going from 140/100 to 96/60's Will hold his carvedilol(12.5Mg) and amlodipine-benzapril((5-20) and chlorthalidone 50mg Will use prn hydralazine (4) Obstructive sleep apnea (adult) (pediatric) Current Visit: No Status: Acute (5) Cellulitis Current Visit: Yes Status: Acute Plan: mild. Will start him on po amox-clauvinate as to not increase fluids in the patient Qualifiers: Site of cellulitis: extremity Site of cellulitis of extremity: lower extremity Laterality: right Qualified Code(s): L03.115 - Cellulitis of right lower limb (6) Sepsis Current Visit: Yes Status: Acute Plan: continue vancomycin. will let pharmacy adjust the dosage. 06/30 multidrug sensitive Will switch to levaquin Qualifiers: Sepsis type: Streptococcus, other Sepsis acute organ dysfunction status: with acute organ dysfunction Severe sepsis acute organ dysfunction type: acute renal failure Severe sepsis shock status: without septic shock Discharge Plan: Home Plan to discharge in: Greater than 2 days - Code Status/Comfort Care Code Status Assessed: No Physician Review: Patient Assessed, Agree with Above Assessment and Plan Critical Care: Yes Time Spent Managing PTS Care (In Minutes): 25
[2023-07-01] MEDS: Levofloxacin500mg IV 500 MG/100 ML BAG IV SCH (16:13)
[2023-07-01] MEDS: carvediloL 3.125 MG TAB PO SCH (16:21)
[2023-07-01] MEDS ORDERED: VANCOMYCIN 1 GM in NA CHLORIDE 0.9% 250 ML IVPB SCH (17:00)
[2023-07-02 04:56] LABS: Hepatitis B surface AG Interp. Nonreactive (Nonreactive)
[2023-07-02 04:57] LABS: HBsAG Nonreactive Report Report; Hepatitis B Surface Ab - Quant < 3.10 mIU/mL (<8.0)
[2023-07-02 05:11] LABS: Absolute Lymphocytes (CBC) 1.1 K/uL (0.7-4.9); Absolute Neutrophil 14.6 K/uL (1.8-8.0); Basophils % 0.2 % (0-1.3); Eosinophils % 0.2 % (0-4.4); Hematocrit 24.9 % (39.6-49.0); Hemoglobin 7.8 g/dL (13.6-17.9); Lymphocytes % 6.2 % (15.3-44.8); MCH 24.7 pg (27.0-35.0); MCHC 31.3 g/dL (32.0-36.0); MPV 9.6 fL (7.6-11.3); Monocytes % 11.3 % (3.3-12.3); Neutrophils % 82.1 % (41.7-73.7); Nucleated Red Blood Cells % 0.2 % (0-0); Platelets 186 thou/uL (152-406); RBC Red Blood Cell Count 3.16 M/uL (4.33-5.43); Red Cell Distribution Width 18.9 % (12.1-15.2)
[2023-07-02 05:29] LABS: Albumin 2.4 g/dL (3.4-5.0); Albumin/Globulin Ratio 0.4 (1.1-1.8); Anion Gap 16.9 mEq/L (5.0-15.0); Globulin 5.7 g/dL (2.3-3.5); Potassium 3.9 mEq/L (3.5-5.1); Protein, Total 8.1 g/dL (6.4-8.2)
--- NOTE | 2023-07-02 06:58 | ECHO ---
HEIGHT: 6 ft 0 in WEIGHT: 263 lb 0 oz DATE OF STUDY: 06/29/[address]: Fab Louise MD 2-DIMENSIONAL: YES M.MODE: YES DOPPLER: YES COLOR FLOW: YES TDS: YES PORTABLE: YES DEFINITY: BUBBLE STUDY: DIAGNOSIS: DIASTOLIC CONGESTIVE HEART FAILURE CARDIAC HISTORY: CATHERIZATION: SURGERY: PROSTHETIC VALVE: PACEMAKER: MEASUREMENTS (cm) DIASTOLIC (NORMALS) SYSTOLIC (NORMALS) IVSd 1.1 (0.6-1.2) LA Diam 4.3 (1.9-4.0) LVEF 55-60% LVIDd 5.2 (3.5-5.7) LVIDs 3.2 (2.0-3.5) %FS 37% LVPWd 1.2 (0.6-1.2) Ao Diam 3.3 (2.0-3.7) 2 DIMENSIONAL ASSESSMENT: RIGHT ATRIUM: NORMAL LEFT ATRIUM: ENLARGED RIGHT VENTRICLE: NORMAL LEFT VENTRICLE: NORMAL TRICUSPID VALVE: NORMAL MITRAL VALVE: MILD MITRAL REGURGITATION PULMONIC VALVE: NORMAL AORTIC VALVE: NORMAL PERICARDIAL EFFUSION: NONE AORTIC ROOT: NORMAL LEFT VENTRICULAR WALL MOTION: NORMAL DOPPLER/COLOR FLOW: SEE BELOW COMMENTS: 1. NORMAL LEFT VENTRICULAR EJECTION FRACTION 55-60% WITH NORMAL WALL MOTION 2. MODERATE DIASTOLIC DYSFUCNTION 3. LEFT ATRIAL ENLARGEMENT 4. POOR STUDY TECHNOLOGIST: PAULA GARCIA
[2023-07-02] MEDS: ALBUMIN HUMAN 25% 100 ML IV ONE (10:00)
--- NOTE | 2023-07-02 11:23 | P.PN ---
Subjective Date of Service: 07/02/23 Primary Care Provider: Aspen Chief Complaint: Acute diastolic chf with renal failure Subjective: New changes (Patient for dialysed yeterday and tolerated it well) Review of Systems 10-point ROS is otherwise unremarkable Physical Examination - Vital Signs Temperature: 98.8 F Blood Pressure: 108/47 Pulse: 104 Respirations: 32 Pulse Ox (%): 100 - Physical Exam General: Alert, In no apparent distress HEENT: Atraumatic, PERRLA, EOMI Neck: Supple, JVD not distended Respiratory: Clear to auscultation bilaterally, Normal air movement Cardiovascular: Regular rate/rhythm, Normal S1 S2 Gastrointestinal: Normal bowel sounds, No tenderness Musculoskeletal: No tenderness Integumentary: No rashes Neurological: Normal speech, Normal tone, Normal affect Lymphatics: No axilla or inguinal lymphadenopathy - Studies Microbiology Data (last 24 hrs): 06/29/23 08:10 Blood - Blood Aerobic Blood Culture - Final Streptococcus Dysgalactiae 06/29/23 08:10 Blood - Blood Blood Culture Gram Stain - Final 06/29/23 08:10 Blood - Blood Anaerobic Blood Culture - Final Streptococcus Dysgalactiae 06/29/23 08:10 Blood - Blood Gram Stain - Final 06/29/23 07:50 Blood - Blood Aerobic Blood Culture - Final Streptococcus Dysgalactiae 06/29/23 07:50 Blood - Blood Blood Culture Gram Stain - Final 06/29/23 07:50 Blood - Blood Anaerobic Blood Culture - Final Streptococcus Dysgalactiae 06/29/23 07:50 Blood - Blood Gram Stain - Final Medications List Reviewed: Yes Assessment And Plan - Current Problems (Diagnosis) (1) CAD (coronary artery disease) Current Visit: Yes Status: Acute Plan: Patient with PMH of LAD CONTRACT ANALYST, 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 ASA 81 mg daily Lipitor 40 mg daily (2) Acute exacerbation of CHF (congestive heart failure) Current Visit: No Status: Acute Plan: Patient with diastolic dysfunction, he came in with elevated creatinine which thought might be secondary to over diuresis, patient is getting dialyzed now with Nephrology team, would start him on oral lasix if ok with nephrology. Qualifiers: Heart failure type: diastolic Qualified Code(s): I50.33 - Acute on chronic diastolic (congestive) heart failure (3) Essential (primary) hypertension Current Visit: No Status: Acute Plan: Continue Coreg 6.25 mg po BID Patient is also on Midodrine 5 mg po TID. Physician Review: Patient Assessed, Agree with Above Assessment and Plan
--- NOTE | 2023-07-02 12:33 | EKG ---
Test Date: 2023-06-29 Test Time: 07:38:47 Dependency Counselor: SHANNON MEASUREMENT RESULTS: Intervals: Rate: 97 SC: 196 QRSD: 100 QT: 366 QTc: 464 [place]: P: 26 SC: 196 QRS: -8 T: 36 INTERPRETIVE STATEMENTS: Normal sinus rhythm Septal infarct, age undetermined Abnormal ECG Compared to ECG 09/22/2022 09:13:40 Sinus tachycardia no longer present Left ventricular hypertrophy no longer present Myocardial infarct finding still present Electronically Signed On 07-02-23 12:25:44 CDT by Alan Navarro
--- NOTE | 2023-07-02 13:42 | P.PN ---
Subjective Date of Service: 07/02/23 Primary Care Provider: Aspen Chief Complaint: Acute diastolic chf with renal failure Subjective: Improving Review of Systems 10-point ROS is otherwise unremarkable Physical Examination - Vital Signs Temperature: 98.2 F Blood Pressure: 118/66 Pulse: 100 Respirations: 37 Pulse Ox (%): 99 - Physical Exam General: Alert, In no apparent distress HEENT: Atraumatic, PERRLA, EOMI Neck: Supple, JVD not distended Respiratory: Clear to auscultation bilaterally, Normal air movement Cardiovascular: Regular rate/rhythm, Normal S1 S2 Gastrointestinal: Normal bowel sounds, No tenderness Musculoskeletal: No tenderness Integumentary: No rashes Neurological: Normal speech, Normal tone, Normal affect Lymphatics: No axilla or inguinal lymphadenopathy - Studies Medications List Reviewed: Yes Assessment And Plan - Current Problems (Diagnosis) (1) Acute exacerbation of CHF (congestive heart failure) Current Visit: No Status: Acute Plan: will give him one dose of lasix. Continue bipap and will admit the patient to the icu. Will check serial troponins and consult to Dr. Salinas/Melanie. . Will restart the patients carvedilol. At a lower dose however Qualifiers: Heart failure type: diastolic Qualified Code(s): I50.33 - Acute on chronic diastolic (congestive) heart failure (2) Acute renal failure Current Visit: No Status: Acute Plan: discussed the patient with Dr. Sandoval. Order a U/a. Will monitor I's and O's 20 He is recovering well. No plan for chcf dialysis. Just getting fluid removed. Qualifiers: Acute renal failure type: unspecified Qualified Code(s): N17.9 - Acute kid grant failure, unspecified (3) Essential (primary) hypertension Current Visit: No Status: Acute Plan: He is very labile in the ER. going from 140/100 to 96/60's Will hold his carvedilol(12.5Mg) and amlodipine-benzapril((5-20) and chlorthalidone 50mg Will use prn hydralazine (4) Obstructive sleep apnea (adult) (pediatric) Current Visit: No Status: Acute (5) Cellulitis Current Visit: Yes Status: Acute Plan: mild. Will start him on po amox-clauvinate as to not increase fluids in the patient Qualifiers: Site of cellulitis: extremity Site of cellulitis of extremity: lower extremity Laterality: right Qualified Code(s): L03.115 - Cellulitis of right lower limb (6) Sepsis Current Visit: Yes Status: Acute Plan: continue vancomycin. will let pharmacy adjust the dosage. 06/30 multidrug sensitive Will switch to levaquin Qualifiers: Sepsis type: Streptococcus, other Sepsis acute organ dysfunction status: with acute organ dysfunction Severe sepsis acute organ dysfunction type: acute renal failure Severe sepsis shock status: without septic shock Discharge Plan: Home Plan to discharge in: 48 Hours - Code Status/Comfort Care Code Status Assessed: No Physician Review: Patient Assessed, Agree with Above Assessment and Plan Critical Care: No Time Spent Managing PTS Care (In Minutes): 20
--- NOTE | 2023-07-02 13:44 | PN ---
Date of Progress Note: 07/01/2023 Chief Complaint: Acute kidney injury, cardiorenal syndrome, acute diastolic congestive heart failure, anasarca. History Of Present Illness: The patient is admitted to ICU for severe shortness of breath, anasarca, fluid overload. He was found to have elevated BUN and creatinine level. The serum creatinine level was 4.79. Previously, the patienthad workup done back in 2022 and creatinine level was 1.2. The patient was seenin the office by his primary care physician and referred to the hospital for acute kidney injury, acute diastolic congestive heart failure with fluid overload and anasarca. The patient has history of diabetes mellitus, hypertension, congestive heart failure, sleep apnea. Previously, he was complaining of back pain and received meloxicam for back pain. He denies lower urinary tract symptoms. Denies kidney colic. Denies hematuria or dysuria. Review of Systems: Constitutional: Denies fever, chills. Eyes: Denies vision changes. Ears, Nose, Mouth and Throat: Denies sore throat, earache. Respiratory: Has shortness of breath. Denies wheezing, cough, hemoptysis. GI: Denies nausea, vomiting. : Denies dysuria, hematuria. All other systems reviewed and all are negative. Past Medical History: Hypertension. Denies diabetes. Family History: Father with heart disease. Mother with diabetes and heart disease. Brother has hypertension. Sister has hypertension. Social History: Denies tobacco. He denies drugs. Alcohol use, yes. Physical Examination: Physical Examination: General: Patient is alert, on BiPAP, not in acute distress. Eyes: Anicteric sclerae. EOMI. Ears, Nose, Mouth, and Throat: Oral mucosa moist. No pallor. Neck: Supple. No bruits. Lungs: Coarse breath sounds bilaterally. Abdomen: obese , soft , no flank pain Extremity : anasarca. And Plan: Hyponatremia, hypoosmolar, acute kidney injury, severe. The patient is admitted to ICU for respiratory distress. The patient is on IV Lasix for volume control and to treat cardiorenal syndrome. Patient will have HD to control severe azotemia and fluid overload . Radiology findings : There is no hydronephrosis, no focal mass, no perinephric fluid. Right kidney is 10.3 cm and left kidney 10.3 cm in length. Microscopic hematuria , Urinalysis was done during this admission and it showed RBCs and WBCs. Plan is to check serologies for possible vasculitis. Patient may need renal biopsy to rule out rapidly progressive glomerulonephritis. Plan is to check UA and urine culture to rule out urinary tract infection. Congestive herat failure , with hypoxemic respiratory failure, anasarca, start Hemodialysis for acute kidney ijnury with severe hypoxemic respiratory failure and congestive heart failure exacerbation continue IV diuretic , monitor renal panel, patient will need daily dialysis to control fluid overload and azotemia. Monitor renal panel and urine output for any evidence of renal function recovery. Hypotension , midodrine was started , patient may require IV pressor, recommend blood culture and urine culture to rule out sepsis. hyponatremia due to acute kidney injury and congestive heart exacerbation , continue lasix , po fluid restriction and low Sodium diet, advance lasix dose according to UO and BP. MTDD
--- NOTE | 2023-07-02 13:44 | PN ---
Date of Progress Note: 06/30/2023 Chief Complaint: Acute kidney injury, cardiorenal syndrome, acute diastolic congestive heart failure, anasarca. History Of Present Illness: The patient is admitted to ICU for severe shortness of breath, anasarca, fluid overload. He was found to have elevated BUN and creatinine level. The serum creatinine level was 4.79. Previously, the patienthad workup done back in 2022 and creatinine level was 1.2. The patient was seen in the office by his primary care physician and referred to the hospital for acute kidney injury, acute diastolic congestive heart failure with fluid overload and anasarca. The patient has history of diabetes mellitus, hypertension, congestive heart failure, sleep apnea. Previously, he was complaining of back pain and received meloxicam for back pain. He denies lower urinary tract symptoms. Denies kidney colic. Denies hematuria or dysuria. He was started on Lasix . Urine output has not improved significantly. The patient has hypoxemic respiratory failure fluid overload , anasarca. He has congestive heart failure with fluid overload. Review of Systems: Denies palpitation. Dyspnea is improving Physical Examination: Lungs: Diminished breath sounds bilaterally. Heart: S1, S2. Abdomen: Soft. Obese , no flank tenderness Extremities: Anasarca Impression And Plan: Hyponatremia, hypoosmolar, acute kidney injury, severe. The patient is admitted to ICU for respiratory distress. The patient is on IV Lasix for volume control and to treat cardiorenal syndrome. Patient may be a candidate for dialysis if renal function does not improve. Radiology findings : There is no hydronephrosis, no focal mass, no perinephric fluid. Right kidney is 10.3 cm and left kidney 10.3 cm in length. Microscopic hematuria , Urinalysis was done during this admission and it showed RBCs and WBCs. Plan is to check serologies for possible vasculitis. Patient may need renal biopsy to rule out rapidly progressive glomerulonephritis. Plan is to check UA and urine culture to rule out urinary tract infection. Congestive herat failure , with hypoxemic respiratory failure, anasarca, continue IV diuretic , monitor renal panel, patient will need dialysis to control fluid overload and azotemia. Hypotension , midodrine was started , patient may require IV pressor, recommend blood culture and urine culture to rule out sepsis. hyponatremia due to acute kidney injury and congestive heart exacerbation , continue lasix , po fluid restriction and low Sodium diet, advance lasix dose according to UO and BP. Hyponatremia, secondary to fluid overload, cardiorenal syndrome and congestive heart failure, is gradually improving. Plan is to adjust dialysis parameters to treat fluid overload . Patient needs hemodialysis with ultrafiltration to treat fluid overload, electrolytes abnormalities. 2. Acute kidney injury in setting of severe congestive heart failure and hypoxemic respiratory failure , continue dialysis with ultrafiltration. 3.patient was found to have microscopic hematuria when urinalysis is obtained, serology study ordered to check for any evidence of vasculitis, urine culture is pending to rule out urinary tract infection. Serologies were ordered to rule out any evidence of rapidly progressive glomerulonephritis. Patient has acute kidney injury secondary to cardiorenal syndrome. Patient needs to be rule out for acute kidney injury and allergic interstitial nephritis secondary to NSAID. Most likely patient has severe cardiorenal syndrome although nephritis needs to be ruled out. The patient may need renal biopsy if renal function does not improve and when fluid overload is controlled with Hemodialysis and ultrafiltration. Plan is to follow up and monitor for any evidence of renal function recovery and to continue dialysis for metabolic clearance and to advance ultrafiltration according to volemia status to control anasarca and treat congestive heart failure. Plan is to continue HD and adjsut IV Lasix in attempt to induce diuresis and control fluid overload EB/MODL Voice ID: [id number] Report ID: [id number] KATHRYN
--- NOTE | 2023-07-02 13:50 | PN ---
Date of Progress Note: 07/02/2023 Chief Complaint: Acute kidney injury, cardiorenal syndrome, acute diastolic congestive heart failure , anasarca, fluid overload, hypoxemic respiratory failure. Subjective: The patient is admitted to ICU and he was found to have hypoxemic respiratory failure, a nasarca, fluid overload, and severe acute kidney injury. Creatinine was 4.79 and BUN was ranging up to 130. The patient previously had workup done back in 2019, creatinine level was 1.2. The patient was referred by primary care physician to the hospital for acute kidney injury, acute diastolic conge stive heart failure, and fluid overload with anasarca. He has history of diabetes mellitus, hyperten faith, congestive heart failure, sleep apnea, obesity. He underwent hemodialysis with daily treatment for metabolic clearance and ultrafiltration. Blood urea nitrogen improved and serum creatinine leve l is improving. Urine output is improving as well. Review of Systems: Denies chest pain, palpitation. Physical Examination: Lungs: Equal chest expansion. Clear to auscultation bilaterally. Heart: S1, S2. Abdomen: Soft. Extremities: Edema present in upper and lower extremities. Impression And Plan: Acute kidney injury. The patient has hyponatremia. The patient is admitted to ICU for respiratory distress and hypoxemic respiratory failure. The patient will continue IV Lasix. The patient was started on dialysis for metabolic clearance and to obtain negative fluid balance. The patient has severe acute kidney injury, although there is some recovery going on today and the pa tient will have ultrafiltration today for volume control. Urinalysis was done on admission and show hematuria and leukocyturia. Serology is pending for possib le vasculitis. Renal ultrasound did not show hydronephrosis, no mass, no perinephric fluid. Right kidney is 10.3 cm in length and left kidne y 10.3 cm in length. EB/MODL Voice ID: [id number] Report ID: [id number]
[2023-07-03 04:55] LABS: Absolute Lymphocytes (CBC) 1.2 K/uL (0.7-4.9); Absolute Monocytes 1.8 K/uL (0.1-1.3); Absolute Neutrophil 14.1 K/uL (1.8-8.0); Basophils % 0.3 % (0-1.3); Eosinophils % 0.2 % (0-4.4); Hematocrit 24.6 % (39.6-49.0); Hemoglobin 7.6 g/dL (13.6-17.9); Lymphocytes % 7.2 % (15.3-44.8); MCH 24.5 pg (27.0-35.0); MCHC 30.9 g/dL (32.0-36.0); MCV 79.2 fL (80-100); MPV 9.6 fL (7.6-11.3); Monocytes % 10.7 % (3.3-12.3); Platelets 186 thou/uL (152-406); RBC Red Blood Cell Count 3.11 M/uL (4.33-5.43); Red Cell Distribution Width 18.7 % (12.1-15.2)
[2023-07-03 05:01] LABS: Neutrophils % 81.6 % (41.7-73.7)
[2023-07-03 05:15] LABS: Anion Gap 14.3 mEq/L (5.0-15.0); Magnesium 2.2 mg/dL (1.6-2.4); Potassium 4.3 mEq/L (3.5-5.1)
--- NOTE | 2023-07-03 08:16 | P.PN ---
Subjective Date of Service: 07/03/23 Primary Care Provider: Aspen Chief Complaint: Acute diastolic chf with renal failure Subjective: Worsening (creatine has increased) Review of Systems 10-point ROS is otherwise unremarkable Physical Examination - Vital Signs Temperature: 98.5 F Blood Pressure: 110/62 Pulse: 93 Respirations: 36 Pulse Ox (%): 98 - Physical Exam General: Alert, In no apparent distress HEENT: Atraumatic, PERRLA, EOMI Neck: Supple, JVD not distended Respiratory: Clear to auscultation bilaterally, Normal air movement Cardiovascular: Regular rate/rhythm, Normal S1 S2 Gastrointestinal: Normal bowel sounds, No tenderness Musculoskeletal: No tenderness Integumentary: No rashes Neurological: Normal speech, Normal tone, Normal affect Lymphatics: No axilla or inguinal lymphadenopathy - Studies Medications List Reviewed: Yes Assessment And Plan - Current Problems (Diagnosis) (1) Acute renal failure Current Visit: No Status: Acute Plan: discussed the patient with Dr. Sandoval. Order a U/a. Will monitor I's and O's 07/02 worsening of his creatine yesterday. Most likely will have dialysis today. His LFT's are also elevated. Possible hepatorenal vs. volume overload. Will continue monitoring this Qualifiers: Acute renal failure type: unspecified Qualified Code(s): N17.9 - Acute kidney failure, unspecified (2) Acute exacerbation of CHF (congestive heart failure) Current Visit: No Status: Acute Plan: will give him one dose of lasix. Continue bipap and will admit the patient to the icu. Will check serial troponins and consult to Dr. Salinas/Melanie. 06.29 Will restart the patients carvedilol. At a lower dose however Qualifiers: Heart failure type: diastolic Qualified Code(s): I50.33 - Acute on chronic diastolic (congestive) heart failure (3) Essential (primary) hypertension Current Visit: No Status: Acute Plan: He is very labile in the ER. going from 140/100 to 96/60's Will hold his carvedilol(12.5Mg) and amlodipine-benzapril((5-20) and chlorthalidone 50mg Will use prn hydralazine (4) Obstructive sleep apnea (adult) (pediatric) Current Visit: No Status: Acute (5) Cellulitis Current Visit: Yes Status: Acute Plan: mild. Will start him on po amox-clauvinate as to not increase fluids in the patient Qualifiers: Site of cellulitis: extremity Site of cellulitis of extremity: lower extremity Laterality: right Qualified Code(s): L03.115 - Cellulitis of right lower limb (6) Sepsis Current Visit: Yes Status: Acute Plan: continue vancomycin. will let pharmacy adjust the dosage. 06/30 multidrug sensitive Will switch to levaquin Qualifiers: Sepsis type: Streptococcus, other Sepsis acute organ dysfunction status: with acute organ dysfunction Severe sepsis acute organ dysfunction type: acute renal failure Severe sepsis shock status: without septic shock Discharge Plan: Home Plan to discharge in: 48 Hours - Code Status/Comfort Care Code Status Assessed: No Physician Review: Patient Assessed, Agree with Above Assessment and Plan Critical Care: Yes Time Spent Managing PTS Care (In Minutes): 20
[2023-07-03] MEDS: FUROSEMIDE 40 MG/4 ML VIAL IV SCH (13:26)
[2023-07-03] MEDS: Levofloxacin 250mg IV 250 MG/50 ML BAG IV ONE (14:28)
--- NOTE | 2023-07-03 16:09 | PN ---
Date of Progress Note: 07/03/2023 Subjective: No change in clinical status. The patient remained in positive balance. He had dialysi s yesterday. Continued to retain fluid. Will resume diuretic. Objective: Vital Signs: Temperature 98.5, pulse rate 94, blood pressure 110/68. General: Awake and alert, obese. Neck: Supple. No elevated JVD. Heart: Regular rate and rhythm. Normal S1, S2. Chest: Decreased air entry to the left side. Abdomen: Soft, nontender. Extremities: +1 edema. Laboratory Data: Sodium 128, potassium 4.3, BUN 59, creatinine of 2. Serology workup showed hepatit is panel negative. Follow up further serology workup. Assessment And Plan: 1.Acute kidney injury. The patient is started on dialysis for fluid management. He is still on pos itive balance. He was off Lasix. We will discuss with Cardiology and resume the Lasix. The patient is proteinuric. Follow up serology workup. Needs to rule out light chain disease. Avoid NSAID and contrast. Renal dose medication. 2.Hypotension. Continue midodrine. We will order a cortisol level. 3.Anemia of chronic disease. Need to rule out light chain disease. We will order iron panel. 4.Mildly elevated LFTs, stable. 5.Anasarca. Urinalysis showed +1 protein. TSH 0.3 only. Unlikely renal origin, but was sent for u rine protein/creatinine ratio. Thanks for allowing me to participate in the patient's care. Total time spent 55 minutes including documentation, reviewing labs, and discussing with the medical team. ANTONIA/YAKELIN Voice ID: [id number] Report ID: [id number]
[2023-07-03] MEDS: carvediloL 6.25 MG TAB PO SCH (17:40)
[2023-07-03 18:05] LABS: UR PROTEIN 80.9 mg/dL (<11.9); Urine Protein/Creatinine Ratio 0.68 ratio (<0.15)
[2023-07-04 08:56] LABS: Albumin 2.6 g/dL (3.4-5.0); Albumin/Globulin Ratio 0.4 (1.1-1.8); Anion Gap 12.4 mEq/L (5.0-15.0); Bilirubin Total 0.9 mg/dL (0.2-1.0); Potassium 4.4 mEq/L (3.5-5.1); Protein, Total 8.6 g/dL (6.4-8.2)
[2023-07-04 09:07] LABS: Ferritin 364.7 ng/mL (26-388); Transferrin 175 mg/dL (200-360); Uric Acid 14.3 mg/dL (3.5-7.2)
[2023-07-04] MEDS: ALBUMIN HUMAN 25% 100 ML IV ONE (11:15)
--- NOTE | 2023-07-04 12:36 | PN ---
Date of Progress Note: 07/04/2023 Subjective: The patient was admitted to the hospital with acute kidney injury and anasarca secondary to cardiorenal. The patient was initiated on dialysis for fluid management. Kidney function started stabilized. Objective: Vital Signs: Blood pressure 113/63, pulse of 102, afebrile. Patient had ultrafiltration of 2800, started having good urine output currently. Chest: Crackles, bilateral. Heart: S1, S2. Systolic murmur. Abdomen: Soft, nontender. Extremity: +1 edema, erythema bilateral. Laboratory Data: WBC 17.3, hemoglobin 7.6, sodium 127, potassium 4.4, bicarb 25, BUN 73, creatinine 1.6, this is postdialysis. Calcium 9.4. Iron saturation 7.8, albumin 2.6, corrected calcium is 10.6. Current Medications: The patient on: 1. IV iron. 2. Levofloxacin. 3. Midodrine. 4. Heparin. 5. Carvedilol. 6. Hydralazine. 7. Lasix 40 t.i.d. Assessment And Plan: 1. Acute kidney injury, overvolume, secondary to cardiorenal, anasarca. Currently, started to be nonoliguric. The patient is scheduled for dialysis today. We will follow up. 2. Hypertension, controlled. Currently, blood pressure on the lower side. We will utilize the blood pressure for more diuresis and ultrafiltration. 3. Anasarca. Normal TSH. Minimal proteinuria secondary to renal failure. We will continue diuresis. 4. Cellulitis. Continue current antibiotic. 5. Hyponatremia, dilutional. Will be corrected with the dialysis. 6. Respiratory failure secondary to overvolume. Continue diuresis as above. Time spent examining the patient [id number], reviewing data, lab and radiology, placing order, discussing the case with the patient, discussing the case with the child study team director including hospitalist and nursing staff with the dialysis nurse more than 35 minutes MARYAN Voice ID: [id number] Report ID: [id number] MTDMonica
--- NOTE | 2023-07-04 18:32 | P.PN ---
Subjective Date of Service: 07/04/23 Primary Care Provider: Aspen Chief Complaint: Acute diastolic chf with renal failure Subjective: No new changes Review of Systems 10-point ROS is otherwise unremarkable Physical Examination - Vital Signs Temperature: 98.4 F Blood Pressure: 110/65 Pulse: 102 Respirations: 20 Pulse Ox (%): 96 - Physical Exam General: Alert, In no apparent distress HEENT: Atraumatic, PERRLA, EOMI Neck: Supple, JVD not distended Respiratory: Clear to auscultation bilaterally, Normal air movement Cardiovascular: Regular rate/rhythm, Normal S1 S2 Gastrointestinal: Normal bowel sounds, No tenderness Musculoskeletal: No tenderness Integumentary: No rashes Neurological: Normal speech, Normal tone, Normal affect Lymphatics: No axilla or inguinal lymphadenopathy - Studies Medications List Reviewed: Yes Assessment And Plan - Current Problems (Diagnosis) (1) CAD (coronary artery disease) Current Visit: Yes Status: Acute Plan: Patient with PMH of LAD ERP IMPLEMENTATION CONSULTANT, 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 ASA 81 mg daily Lipitor 40 mg daily (2) Acute exacerbation of CHF (congestive heart failure) Current Visit: No Status: Acute Plan: Continue Lasix 40 mg IV TID Monitor input and output and electrolytes. Qualifiers: Heart failure type: diastolic Qualified Code(s): I50.33 - Acute on chronic diastolic (congestive) heart failure (3) Essential (primary) hypertension Current Visit: No Status: Acute Plan: Continue Coreg 6.25 mg po BID Patient is also on Midodrine 5 mg po TID. Physician Review: Patient Assessed, Agree with Above Assessment and Plan
[2023-07-05 02:13] LABS: Anti-Double Strand DNA Antibod <1 IU/mL (<=4)
[2023-07-05 06:35] LABS: Absolute Lymphocytes (CBC) 0.9 K/uL (0.7-4.9); Absolute Monocytes 1.9 K/uL (0.1-1.3); Absolute Neutrophil 12.6 K/uL (1.8-8.0); Basophils % 0.3 % (0-1.3); Eosinophils % 0.3 % (0-4.4); Hematocrit 26.6 % (39.6-49.0); Hemoglobin 8.1 g/dL (13.6-17.9); Lymphocytes % 5.8 % (15.3-44.8); MCH 24.2 pg (27.0-35.0); MCHC 30.5 g/dL (32.0-36.0); MCV 79.4 fL (80-100); MPV 10.6 fL (7.6-11.3); Monocytes % 12.5 % (3.3-12.3); Neutrophils % 81.1 % (41.7-73.7); Platelets 286 thou/uL (152-406); RBC Red Blood Cell Count 3.35 M/uL (4.33-5.43); Red Cell Distribution Width 18.5 % (12.1-15.2)
[2023-07-05 06:54] LABS: Albumin 2.8 g/dL (3.4-5.0); Albumin/Globulin Ratio 0.5 (1.1-1.8); Anion Gap 14.5 mEq/L (5.0-15.0); Bilirubin Total 0.8 mg/dL (0.2-1.0); Globulin 6.1 g/dL (2.3-3.5); Potassium 4.5 mEq/L (3.5-5.1); Protein, Total 8.9 g/dL (6.4-8.2)
[2023-07-05 11:00] LABS: Complement C3 209 mg/dL (82-185)
--- NOTE | 2023-07-05 11:33 | PN ---
Date of Progress Note: 07/05/2023 Subjective: The patient was admitted with cardiorenal syndrome, overvolume. The patient was started on dialysis for fluid clearance. The patient is still overvolumed. Physical Examination: Vital Signs: Blood pressure 104/50, pulse of 91. Chest: Crackles bilateral. Heart: S1, S2. Systolic murmur. Abdomen: Soft, nontender. Extremities: +2 edema. Neurologic: Alert. No focality. Laboratory Data: Hemoglobin 8.1. Sodium 126, potassium 4.5, bicarb 23, creatinine 2.6, BUN 60, calcium 9.5. Iron saturation 7.8. Current Medications: The patient on include: 1. Levofloxacin. 2. Albumin. 3. Heparin. 4. Carvedilol. 5. Hydralazine. 6. Lasix. Assessment And Plan: 1. Acute kidney injury secondary to cardiorenal. The patient is still oliguric, overvolumed. I am going to continue the dialysis for the patient. We will arrange for dialysis today and we will follow up. 2. Hypertension. Currently, blood pressure on the lower side. We will dialyze the patient. We will utilize blood pressure for more dialysis. 3. We will use sodium module for blood pressure support. 4. Congestive heart failure with exacerbation. We will continue dialysis to establish better volume control. Time spent examining the patient [id number], reviewing data, lab and radiology, placing order, discussing the case with the patient, discussing the case with the steam station supervisor including hospitalist and nursing staff with the dialysis nurse more than 35 minutes MARYAN Voice ID: [id number] Report ID: [id number] KATHRYN
[2023-07-05 12:18] LABS: Complement (CH50), Total >60 U/mL (31-60)
--- NOTE | 2023-07-05 12:48 | P.PN ---
Subjective Date of Service: 07/05/23 Primary Care Provider: Aspen Chief Complaint: Acute diastolic chf with renal failure Subjective: No new changes Review of Systems 10-point ROS is otherwise unremarkable Physical Examination - Vital Signs Temperature: 97.6 F Blood Pressure: 100/59 Pulse: 96 Respirations: 18 Pulse Ox (%): 97 - Physical Exam General: Alert, In no apparent distress HEENT: Atraumatic, PERRLA, EOMI Neck: Supple, JVD not distended Respiratory: Clear to auscultation bilaterally, Normal air movement, Other (tachypnea) Cardiovascular: Regular rate/rhythm, Normal S1 S2 Gastrointestinal: Normal bowel sounds, No tenderness Musculoskeletal: No tenderness Integumentary: No rashes Neurological: Normal speech, Normal tone, Normal affect Lymphatics: No axilla or inguinal lymphadenopathy - Studies Medications List Reviewed: Yes Assessment And Plan - Current Problems (Diagnosis) (1) Acute renal failure Current Visit: No Status: Acute Plan: discussed the patient with Dr. Sandoval. Order a U/a. Will monitor I's and O's 07/04 creathine has not improved. Plan to continue dialysis. Will discuss the patient with Dr. Sandoval Qualifiers: Acute renal failure type: unspecified Qualified Code(s): N17.9 - Acute kidney failure, unspecified (2) Acute exacerbation of CHF (congestive heart failure) Current Visit: No Status: Acute Plan: will give him one dose of lasix. Continue bipap and will admit the patient to the icu. Will check serial troponins and consult to Dr. Salinas/Melanie. 06.29 Will restart the patients carvedilol. At a lower dose however Qualifiers: Heart failure type: diastolic Qualified Code(s): I50.33 - Acute on chronic diastolic (congestive) heart failure (3) Essential (primary) hypertension Current Visit: No Status: Acute Plan: He is very labile in the ER. going from 140/100 to 96/60's Will hold his carvedilol(12.5Mg) and amlodipine-benzapril((5-20) and chlorthalidone 50mg Will use prn hydralazine (4) Obstructive sleep apnea (adult) (pediatric) Current Visit: No Status: Acute (5) Cellulitis Current Visit: Yes Status: Acute Plan: mild. Will start him on po amox-clauvinate as to not increase fluids in the patient Qualifiers: Site of cellulitis: extremity Site of cellulitis of extremity: lower extremity Laterality: right Qualified Code(s): L03.115 - Cellulitis of right lower limb (6) Sepsis Current Visit: Yes Status: Acute Plan: continue vancomycin. will let pharmacy adjust the dosage. 06/30 multidrug sensitive Will switch to levaquin Qualifiers: Sepsis type: Streptococcus, other Sepsis acute organ dysfunction status: with acute organ dysfunction Severe sepsis acute organ dysfunction type: acute renal failure Severe sepsis shock status: without septic shock Discharge Plan: Home Plan to discharge in: 48 Hours - Code Status/Comfort Care Code Status Assessed: No Physician Review: Patient Assessed, Agree with Above Assessment and Plan Critical Care: No Time Spent Managing PTS Care (In Minutes): 20
[2023-07-05 13:23] LABS: Anti-Nuclear Antibody Screen Negative (Negative)
[2023-07-05 13:51] LABS: Immunofixation Electrophoresis Normal pattern.
[2023-07-05] MEDS: Levofloxacin 750mg IV 750 MG/150 ML BAG IV SCH (14:47)
[2023-07-06 00:37] LABS: C-ANCA Anti-Proteinase 3 <1.0 AI (<1.0); P-ANCA Anti-Myeloperoxidase Ab <1.0 AI (<1.0)
[2023-07-06 06:49] LABS: Absolute Basophils 0.1 K/uL (0-0.5); Absolute Eosinophils 0.1 K/uL (0-0.5); Absolute Lymphocytes (CBC) 0.6 K/uL (0.7-4.9); Absolute Monocytes 1.4 K/uL (0.1-1.3); Absolute Neutrophil 11.2 K/uL (1.8-8.0); Basophils % 1.1 % (0-1.3); Eosinophils % 0.4 % (0-4.4); Hematocrit 25.6 % (39.6-49.0); Hemoglobin 7.9 g/dL (13.6-17.9); Lymphocytes % 4.2 % (15.3-44.8); MCH 24.5 pg (27.0-35.0); MCV 79.1 fL (80-100); MPV 10.1 fL (7.6-11.3); Monocytes % 10.4 % (3.3-12.3); Neutrophils % 83.9 % (41.7-73.7); Nucleated RBC Absolute Count 0.1 (0-0); Nucleated Red Blood Cells % 0.5 % (0-0); Platelets 350 thou/uL (152-406); RBC Red Blood Cell Count 3.24 M/uL (4.33-5.43)
[2023-07-06 07:08] LABS: Albumin 2.6 g/dL (3.4-5.0); Albumin/Globulin Ratio 0.4 (1.1-1.8); Anion Gap 16.4 mEq/L (5.0-15.0); Bilirubin Total 0.6 mg/dL (0.2-1.0); Potassium 4.4 mEq/L (3.5-5.1); Protein, Total 8.6 g/dL (6.4-8.2)
[2023-07-06] MEDS: ALBUMIN HUMAN 25% 100 ML IV ONE (10:45)
--- NOTE | 2023-07-06 12:45 | P.PN ---
Subjective Date of Service: 07/06/23 Primary Care Provider: Aspen Chief Complaint: Acute diastolic chf with renal failure Subjective: No new changes Review of Systems 10-point ROS is otherwise unremarkable Musculoskeletal: Other (swelling of theleft hand and left foot ) Physical Examination - Vital Signs Temperature: 97.1 F Blood Pressure: 101/58 Pulse: 100 Respirations: 20 Pulse Ox (%): 95 - Physical Exam General: Alert, In no apparent distress HEENT: Atraumatic, PERRLA, EOMI Neck: Supple, JVD not distended Respiratory: Clear to auscultation bilaterally, Normal air movement Cardiovascular: Regular rate/rhythm, Normal S1 S2 Gastrointestinal: Normal bowel sounds, No tenderness Musculoskeletal: No tenderness Integumentary: No rashes Neurological: Normal speech, Normal tone, Normal affect Lymphatics: No axilla or inguinal lymphadenopathy - Studies Medications List Reviewed: Yes Assessment And Plan - Current Problems (Diagnosis) (1) Acute exacerbation of CHF (congestive heart failure) Current Visit: No Status: Acute Plan: will give him one dose of lasix. Continue bipap and will admit the patient to the icu. Will check serial troponins and consult to Dr. Salinas/Melanie. 06.29 Will restart the patients carvedilol. At a lower dose however Qualifiers: Heart failure type: diastolic Qualified Code(s): I50.33 - Acute on chronic diastolic (congestive) heart failure (2) Essential (primary) hypertension Current Visit: No Status: Acute Plan: He is very labile in the ER. going from 140/100 to 96/60's Will hold his carvedilol(12.5Mg) and amlodipine-benzapril((5-20) and chlorthalidone 50mg Will use prn hydralazine (3) Obstructive sleep apnea (adult) (pediatric) Current Visit: No Status: Acute (4) Cellulitis Current Visit: Yes Status: Acute Plan: mild. Will start him on po amox-clauvinate as to not increase fluids in the patient Qualifiers: Site of cellulitis: extremity Site of cellulitis of extremity: lower extremity Laterality: right Qualified Code(s): L03.115 - Cellulitis of right lower limb (5) Sepsis Current Visit: Yes Status: Acute Plan: continue vancomycin. will let pharmacy adjust the dosage. 06/30 multidrug sensitive Will switch to levaquin Qualifiers: Sepsis type: Streptococcus, other Sepsis acute organ dysfunction status: with acute organ dysfunction Severe sepsis acute organ dysfunction type: acute renal failure Severe sepsis shock status: without septic shock (6) ESRD (end stage renal disease) Current Visit: Yes Status: Chronic Plan: will need to set up out patient dialysis with Dr. Sandoval. Consult Dr. Hess for a tunnelling catheter Discharge Plan: Home Plan to discharge in: 24 Hours Physician Review: Patient Assessed, Agree with Above Assessment and Plan Critical Care: No Time Spent Managing PTS Care (In Minutes): 20
--- NOTE | 2023-07-06 14:44 | P.PN ---
Subjective Date of Service: 07/06/23 Primary Care Provider: Aspen Chief Complaint: Acute diastolic chf with renal failure Subjective: No overnight events UO ~700ml cont HD TDC placement will consider to reomve roca in 1-2 days General: Awake and alert, obese. Neck: Supple. No elevated JVD. Heart: Regular rate and rhythm. Normal S1, S2. Chest: Decreased air entry to the left side. Abdomen: Soft, nontender. Extremities: +1 edema. Assessment And Plan: #. ESRD Cont HD TTsat for now will need TDC placement , surgery consulted renal dose meds #. Hypotension. Continue midodrine. cortisol level >20 #. Anemia of chronic disease. Monitor H./h Will start Epogen #. Mildly elevated LFTs, stable. #CHF Cont HD as tolerated Thanks for allowing me to participate in the patient's care. Total time spent 55 minutes including documentation, reviewing labs, and discus sing with the medical team. Physical Examination - Vital Signs Temperature: 97.1 F Blood Pressure: 101/58 Pulse: 100 Respirations: 20 Pulse Ox (%): 95 - Studies Medications List Reviewed: Yes Assessment And Plan Physician Review: Patient Assessed, Agree with Above Assessment and Plan
[2023-07-06] MEDS ORDERED: EPOETIN ALFA 10,000 UNIT/ML VIAL IV SCH (14:45)
[2023-07-07 06:30] LABS: Absolute Basophils 0.1 K/uL (0-0.5); Absolute Eosinophils 0.1 K/uL (0-0.5); Absolute Lymphocytes (CBC) 0.6 K/uL (0.7-4.9); Absolute Monocytes 1.8 K/uL (0.1-1.3); Absolute Neutrophil 9.7 K/uL (1.8-8.0); Basophils % 0.6 % (0-1.3); Eosinophils % 0.7 % (0-4.4); Hematocrit 25.7 % (39.6-49.0); Hemoglobin 8.1 g/dL (13.6-17.9); Lymphocytes % 4.7 % (15.3-44.8); MCH 24.9 pg (27.0-35.0); MCHC 31.4 g/dL (32.0-36.0); MCV 79.2 fL (80-100); Monocytes % 14.5 % (3.3-12.3); Neutrophils % 79.5 % (41.7-73.7); Nucleated RBC Absolute Count 0.1 (0-0); Nucleated Red Blood Cells % 0.4 % (0-0); Platelets 447 thou/uL (152-406); RBC Red Blood Cell Count 3.24 M/uL (4.33-5.43); Red Cell Distribution Width 18.8 % (12.1-15.2)
[2023-07-07 06:39] LABS: Albumin 3.1 g/dL (3.4-5.0); Albumin/Globulin Ratio 0.5 (1.1-1.8); Anion Gap 16.3 mEq/L (5.0-15.0); Bilirubin Total 0.8 mg/dL (0.2-1.0); Globulin 5.9 g/dL (2.3-3.5); Potassium 4.3 mEq/L (3.5-5.1)
--- NOTE | 2023-07-07 08:35 | P.PN ---
Subjective Date of Service: 07/07/23 Primary Care Provider: Aspen Chief Complaint: Acute diastolic chf with renal failure Subjective: No new changes Review of Systems 10-point ROS is otherwise unremarkable Physical Examination - Vital Signs Temperature: 96.8 F Blood Pressure: 117/56 Pulse: 96 Respirations: 16 Pulse Ox (%): 96 - Physical Exam General: Alert, In no apparent distress HEENT: Atraumatic, PERRLA, EOMI Neck: Supple, JVD not distended Respiratory: Clear to auscultation bilaterally, Normal air movement Cardiovascular: Regular rate/rhythm, Normal S1 S2 Gastrointestinal: Normal bowel sounds, No tenderness Musculoskeletal: No tenderness Integumentary: No rashes Neurological: Normal speech, Normal tone, Normal affect Lymphatics: No axilla or inguinal lymphadenopathy - Studies Medications List Reviewed: Yes Assessment And Plan - Current Problems (Diagnosis) (1) ESRD (end stage renal disease) Current Visit: Yes Status: Chronic Plan: will need to set up out patient dialysis with Dr. Sandoval. Consult Dr. Hess for a tunnelling catheter 11/[address] a tunnelling catheter later today with Dr. Hess (2) Obstructive sleep apnea (adult) (pediatric) Current Visit: No Status: Acute Plan: Patient has not been using the cpap per respiratoy. discussed with him for 10min. Without CPAP his heart failure will worsen. Per my nephrology Colleagues. there is a high morality with patients with both chf and esrd. So compliance with cpap will lower his mortality. (3) Acute exacerbation of CHF (congestive heart failure) Current Visit: No Status: Acute Plan: will give him one dose of lasix. Continue bipap and will admit the patient to the icu. Will check serial troponins and consult to Dr. Salinas/Melanie. 5.18 Will restart the patients carvedilol. At a lower dose however Qualifiers: Heart failure type: diastolic Qualified Code(s): I50.33 - Acute on chronic diastolic (congestive) heart failure (4) Essential (primary) hypertension Current Visit: No Status: Acute Plan: He is very labile in the ER. going from 140/100 to 96/60's Will hold his carvedilol(12.5Mg) and amlodipine-benzapril((5-20) and chlorthalidone 50mg Will use prn hydralazine (5) Cellulitis Current Visit: Yes Status: Acute Plan: mild. Will start him on po amox-clauvinate as to not increase fluids in the patient Qualifiers: Site of cellulitis: extremity Site of cellulitis of extremity: lower extremity Laterality: right Qualified Code(s): L03.115 - Cellulitis of right lower limb (6) Sepsis Current Visit: Yes Status: Acute Plan: continue vancomycin. will let pharmacy adjust the dosage. 06/30 multidrug sensitive Will switch to levaquin Qualifiers: Sepsis type: Streptococcus, other Sepsis acute organ dysfunction status: with acute organ dysfunction Severe sepsis acute organ dysfunction type: acute renal failure Severe sepsis shock status: without septic shock Discharge Plan: Home Plan to discharge in: 24 Hours - Code Status/Comfort Care Code Status Assessed: No Physician Review: Patient Assessed, Agree with Above Assessment and Plan Critical Care: No Time Spent Managing PTS Care (In Minutes): 30
[2023-07-07 09:22] VITALS: BMI 34.2
[2023-07-07] MEDS ORDERED: SOD FERRIC GLUC COMPLX/SUCROSE 125 MG in NA CHLORIDE 0.9% 100 ML IV SCH (11:00)
--- NOTE | 2023-07-07 11:09 | PN ---
Date of Progress Note: 07/07/2023 Subjective: The patient was admitted with acute kidney injury secondary to cardiorenal over volume. The patient was started on dialysis. The patient doing well. The patient is still nonoliguric. Physical Examination: Vital Signs: Blood pressure 117/56, pulse of 96, afebrile. Chest: Crackles, bilateral. Heart: S1, S2. Regular. Abdomen: Soft, nontender. Extremities: +2 edema. Neurologic: Alert. No focality. Laboratory Data: WBC 12.2, hemoglobin 8.1. Sodium 127, potassium 4.3, bicarb 24, BUN 63, creatinine 2.1, calcium 9.8. Iron saturation 7.8, ferritin is 367. Albumin 3.1. Corrected calcium 10.6. Serum protein electrophoresis is still pending. Cortisol 27. TSH 0.3. Current Medications: The patient on include: 1. Levofloxacin. 2. Midodrine 5 mg t.i.d. 3. Epogen. 4. Carvedilol 6.25 b.i.d. 5. Hydralazine. 6. Lasix 40 t.i.d. Assessment And Plan: 1. Acute kidney injury secondary to cardiorenal, nonoliguric, still on the over volume side. We resumed Lasix yesterday. The patient progressed to end- stage renal disease, dialysis dependent. Waiting for TDC placement, then to obtain chair time for the patient. Unfortunately patient is uninsured, so we going to continue to watch that process. 2. Hypertension. Currently, blood pressure on the lower side. The patient midodrine dependent. I am going to go ahead and decrease his carvedilol. We will utilize blood pressure for more diuresis. 3. Hyponatremia, dilutional. Hypothyroidism and adrenal insufficiency have been ruled out. I am going to go ahead and dialyze the patient on high sodium bath and that will take care of the sodium. I do not see any need for supplement. 4. Congestive heart failure with exacerbation. I will repeat chest x-ray. Continue diuresis as above. 5. Deconditioning. Continue PT/OT. 6. Cellulitis. Continue Levaquin. 7. Iron-deficiency anemia. We will start the patient on IV iron. We will follow up. Time spent examining the patient mgvw-to-pcoc, reviewing data, lab and radiology, placing order, discussing the case with the patient, discussing the case with the steam tender including hospitalist and nursing staff with the dialysis nurse more than 35 minutes MARYAN Voice ID: [id number] Report ID: [id number] KATHRYN
--- NOTE | 2023-07-07 12:39 | CON ---
Date of Consultation: 07/06/2023 Brief History Of Present Illness: The patient is a 48-year-old male who was recently seen by Dr. Ama srinivasan in his office with a past medical history significant for hypertension, diastolic congestive heart failure, sleep apnea, who came with worsening back pain and shortness of breath. Dr. Louise ordered a chest x-ray, however, the patient did not get this due to insurance issues. As such, he came to [facility] emergency room and was found to have hypoxia and significant pleural effusion and elevation of his creatinine. As such, there was concern of exacerbation of CHF, as well as possible worsening renal f unction and an acute on chronic kidney injury. He was admitted for this and had a temporary hemodial ysis catheter placed and under the direction of his tissue coordinator, he was found that FREDY, cardiorenal syndrome, acute diastolic congestive heart failure, and anasarca requiring dialysis. He had a tempor keyla dialysis catheter placed, however, he now appears that he may need more long-term hemodialysis ac cess and as such, I am consulted for placement of a tunneled hemodialysis catheter. Past Medical History: Significant for hypertension, diastolic congestive heart failure, renal dysfun ction, sleep apnea. He also has a history of diabetes. Past Surgical History: He has had a temporary hemodialysis catheter placed on the left subclavian po sition during this admission. Family History: Significant for father with heart disease; mother with diabetes, heart disease; brot her had hypertension; sister had hypertension. Social History: He denies smoking, recreational drug use, but drinks alcohol recreationally. Review of Systems: 10-point review of systems other than HPI, complains of back pain. Physical Examination: Vital Signs: At the time of my examination, his blood pressure was 143/74, heart rate was 100, respi ratory rate 16, temperature 98.3, SpO2 of 96% on room air. General: He is awake, alert, and oriented. Psychiatric: He is appropriate and conversive. HEENT: Normocephalic. His sclerae were anicteric. His mucous membranes are moist. His oropharynx was clear with poor dentition. Neck: Supple without JVD. Chest: Normal expansion and excursion. He has a left subclavian temporary hemodialysis catheter in place. Abdomen: Soft. Extremities: Minimal swelling and edema is evident consistent with a low-grade anasarca. There is e kimberly in all 4 extremities. Skin: Warm and dry, otherwise. Laboratory Data: He had a laboratory exam, which revealed a white blood cell count of 13.3, hemoglob in 7.9, hematocrit of 25.6, platelet count was 350, neutrophils were 83.9. Chemistry showed a sodium 124, potassium 4.4, chloride is 90, carbon dioxide 22, BUN 85, creatinine 2.02. His glucose is 108. Total bilirubin 0.6, AST 29, ALT 23, alkaline phosphatase 110. His hepatitis B core was nonreactiv e. Allergies: NO KNOWN DRUG ALLERGIES. Home Medications: Included amlodipine, benazepril, carvedilol, chlorthalidone, aspirin, Lipitor, and nitroglycerin. He had an extremity venous study on 06/28, which was officially read as no DVT in th e left lower extremity. He also had a chest x-ray performed on 06/30, which was officially read as n o significant interval change. Small bilateral pleural effusions. Left subclavian catheter unchange d position with the tip projecting over the proximal SVC. Lungs are clear. No pneumothorax. Small bilateral pleural effusions with underlying atelectasis. Assessment And Plan: This is a 48-year-old man who comes in with worsening acute renal dysfunction w ith the need for possible ongoing prolonged hemodialysis. 1.Continue medical management. 2.I have explained the risks, benefits, and alternatives of placement of a tunneled hemodialysis cat heter including, but not limited to bleeding, infection, damage to surrounding tissues, pneumothorax, or collapsed lung, blood clots, heart attack, strokes, and other unforeseen complications in the per ioperative period, injury to the great blood vessels, heart arrhythmias as well, need for further ope ration procedures. The patient agreed to proceed as indicated. I will also likely remove his other nontunneled hemodialysis catheter and I have explained the risks, benefits, alternatives, similar to the issues above. With respect to risks, benefits, and alternatives, patient displayed understanding of the above stated plan, agrees to proceed as indicated. TK/MODL Voice ID: [id number] Report ID: [id number]
--- NOTE | 2023-07-07 12:49 | RAD REPORT ---
EXAM DESCRIPTION: RAD - Chest Single View - 07/07/2023 12:34 pm CLINICAL HISTORY: COPD COMPARISON: Chest Single View dated 07/01/2023; Chest Single View dated 06/30/2023; Chest Single View dated 06/29/2023; Chest Single View dated 09/26/2022 FINDINGS: Lines: Left subclavian approach catheter terminates at the distal left brachiocephalic vei n/proximal SVC . Lungs: Mild increased basilar opacities compared with 07/01/2023. Pleural: No significant pleural effusions or pneumothorax. Cardiac: The heart size is within normal limits. Mediastinum: Within normal limits. Bones: No acute fractures. Other: None IMPRESSION: Mild increase in basilar opacities probably representing atelectasis, though early pneum onia or pneumonitis difficult to exclude radiographically.
[2023-07-07] MEDS: NA CHLORIDE 0.9% 500 ML ONE (14:07)
[2023-07-07] MEDS: NS 0.9% VIAL 10 ML ONE (14:52)
[2023-07-07] MEDS: NA CHLORIDE 0.9% 50 ML ONE (14:53)
[2023-07-07] MEDS ORDERED: propofoL 200 MG/20 ML VIAL IV ONE (15:03)
[2023-07-07] MEDS ORDERED: FENTANYL CITR 100 MCG/2 ML ONE (15:03)
[2023-07-07] MEDS: HEPARIN 5000 UNIT/ML 1 ML VIAL ONE (15:49)
[2023-07-07] MEDS: LIDOCAINE HCL/EPINEPHRINE 20 ML MDV ONE (15:49)
--- NOTE | 2023-07-07 16:08 | P.OP ---
Preoperative diagnosis: Need for Dialysis Postoperative diagnosis: Need for Dialysis Primary procedure: Insertion of RIGHT Internal Jugular Tunneled Hemodialysis Catheter Secondary procedure: Ultrasound and Flouroscopic Guidance, micro-introducer Anesthesia: GETA + Local Estimated blood loss: <10cc Specimen: None Findings: Catheter Tip @ SVC Complications: None Implants: 19cm Hemosplit HD catheter Transferred to: Recovery Room Condition: Good
[2023-07-07] MEDS: Levofloxacin 750mg IV 750 MG/150 ML BAG IV ONE (16:10)
--- NOTE | 2023-07-07 16:42 | RAD REPORT ---
EXAM DESCRIPTION: RAD - Chest Single View - 07/07/2023 4:35 pm CLINICAL HISTORY: RIGHT IJ Tunneled HD Cath Placed COMPARISON: Chest Single View dated 07/07/2023; Chest Single View dated 07/01/2023; Chest Single View dated 06/30/2023; Chest Single View dated 06/29/2023 FINDINGS: Lines: Right IJ approach dialysis catheter. The distal tip terminates overlying the proxim al SVC. Left subclavian approached catheter terminates near the distal left brachiocephalic vein vers us proximal SVC. Lungs: Prominence of the pulmonary interstitium which is similar. Pleural: No significant pleural effusions or pneumothorax. Cardiac: Cardiomegaly. Mediastinum: Within normal limits. Bones: No acute fractures. Other: None IMPRESSION: Right IJ approach dialysis catheter with distal tip overlying the proximal SVC. No pneum othorax. Mild interstitial edema.
--- NOTE | 2023-07-07 16:49 | RAD REPORT ---
EXAM DESCRIPTION: RAD - Fluoroscopy <1 Hour - 07/07/2023 4:40 pm CLINICAL HISTORY: HD CATH COMPARISON: No comparisons FINDINGS/IMPRESSION: Five fluoroscopic images were submitted showing placement of a right IJ approac h dialysis catheter. No radiologist was available for the procedure, nor will any image interpretation be provided. Bk luna refer to the procedural report for additional details Fluoro time: 0.4 minutes Cumulative dose: 5.47 mGy
[2023-07-07] MEDS: carvediloL 6.25 MG TAB PO SCH (17:32)
--- NOTE | 2023-07-07 20:47 | OP ---
Date of Procedure: 07/07/2023 Surgeon: Wayne Hess MD, Preoperative Diagnosis: Need for dialysis. Postoperative Diagnosis: Need for dialysis. Procedure Performed: Insertion of right internal jugular tunneled hemodialysis catheter using ultras ound fluoroscopic guidance with interpretation as well as micro introducer set. Anesthesia: General endotracheal plus local with 0.25% Marcaine. Estimated Blood Loss: Less than 10 cc. Specimen: None. Findings: Catheter tip was at the confluence of the SVC. Complications: None. Implants: 19 cm HemoSplit catheter placed in the SVC via access point at the right internal jugular vein. Disposition: The patient was transferred to recovery room in good condition. Procedure In Detail: After informed consent was obtained, the patient brought to the operating room, prepped and draped in the usual sterile fashion. After adequate anesthesia was achieved, I placed t he patient in steep Trendelenburg position. I used ultrasound guidance to cannulate the right [employer] al jugular vein on the first attempt using ultrasound guidance after appropriately anesthetizing the skin with a micro introducer needle. At this point, a micro wire was advanced into the confluence of the superior vena cava and into the right atrium. Fluoroscopic guidance confirmed the position. At this point, the previous catheter placed within the left subclavian was evident on this film as well . After this was confirmed position, I made a han incision overlying the insertion port at the [facility] t internal jugular vein. I then placed a micro introducer sheath at this point and removed the micro wire and advanced a standard wire under fluoroscopic guidance and dark red nonpulsatile blood was re turned. The wire was found to be once again in the right atrium, SVC confluence and passed down into the right ventricle easily without issue. I then backed the wire out into the right atrium, SVC con fluence. At this point, I anesthetized the area of the skin on the infraclavicular area of the right chest wall including the entire tract. I made a small han incision overlying this chest wall site and then using the tunneling device, brought the catheter which was a 19 cm HemoSplit catheter up thr ough the neck insertion site. The curved catheter was positioned at this point and appeared to be of adequate length. After appropriately sizing this catheter and positioning it, I then performed sequ ential dilatation using Seldinger technique under fluoroscopic guidance without issue. I then placed the introducer sheath with minimal resistance. At this point, I removed the inner cannula of the in troducer sheath and dark red nonpulsatile blood was returned. Fluoroscopic guidance confirmed the po sition once again. I then advanced the catheter with minimal friction through the catheter insertion site introducer sheath and removed the sheath at this point. At this point, the catheter andria back dark red nonpulsatile blood and flushed quite easily. I then flushed until completely clear with miriam rile saline and then heparin super flush at this 0.2 cc per port. At this point, the position was co nfirmed once again with the fluoroscopy. The catheter was at the confluence of the SVC above the pos ition of the previous catheter which remained in place at this point. At this point, I irrigated all areas of contact and closed the neck incision with an interrupted 3-0 nylon suture, and this cathete r was secured to the skin with 3-0 nylon interrupted sutures and a sterile dressing placed over top. The patient tolerated the procedure without incident or complication, transferred to PACU in good co ndition. All counts were correct at the end of the case. TK/MODL Voice ID: [id number] Report ID: [id number]
[2023-07-08 08:22] LABS: Albumin 2.8 g/dL (3.4-5.0); Albumin/Globulin Ratio 0.5 (1.1-1.8); Anion Gap 18.4 mEq/L (5.0-15.0); Bilirubin Total 0.9 mg/dL (0.2-1.0); Globulin 5.8 g/dL (2.3-3.5); Potassium 4.4 mEq/L (3.5-5.1); Protein, Total 8.6 g/dL (6.4-8.2)
[2023-07-08 08:35] LABS: Absolute Basophils 0.1 K/uL (0-0.5); Absolute Eosinophils 0.1 K/uL (0-0.5); Absolute Lymphocytes (CBC) 0.6 K/uL (0.7-4.9); Absolute Monocytes 1.9 K/uL (0.1-1.3); Absolute Neutrophil 11.2 K/uL (1.8-8.0); Basophils % 0.6 % (0-1.3); Eosinophils % 0.5 % (0-4.4); Hematocrit 24.7 % (39.6-49.0); Hemoglobin 7.5 g/dL (13.6-17.9); Lymphocytes % 4.5 % (15.3-44.8); MCH 23.9 pg (27.0-35.0); MCHC 30.4 g/dL (32.0-36.0); MCV 78.9 fL (80-100); MPV 10.4 fL (7.6-11.3); Monocytes % 13.4 % (3.3-12.3); Platelets 485 thou/uL (152-406); RBC Red Blood Cell Count 3.13 M/uL (4.33-5.43); Red Cell Distribution Width 19.2 % (12.1-15.2)
[2023-07-08 09:57] LABS: Beta Globulin 24 HR Urine 29 %; Creatinine 24 Hour Urine 1.44 g/24 h (0.50-2.15); Gamma Globulin, 24hr Urine 11 %; Interpretation: REPORT; Protein/Crea Ratio in g 625 mg/g creat (<100); Protein/Crea Ratio in mg 0.625 (<0.100); Urine Albumin 24 Hours 27 %; Urine Alpha-1-Globulin, 24Hr 4 %; Urine Alpha-2-Globulins, 24 Hr 29 %; Urine PEP Abn Protein Band1 REPORT; Urine Total Volume 24 Hours 1100 mL
--- NOTE | 2023-07-08 12:34 | P.DS ---
Admission Date: 06/29/23 Discharge Date: 07/08/23 Primary Care Provider: Aspen Disposition: ROUTINE DISCHARGE Reason for Admission: Acute diastolic chf with renal failure - Problems (1) ESRD (end stage renal disease) Current Visit: Yes Status: Chronic (2) Obstructive sleep apnea (adult) (pediatric) Current Visit: No Status: Acute (3) Acute exacerbation of CHF (congestive heart failure) Current Visit: No Status: Acute Qualifiers: Heart failure type: diastolic Qualified Code(s): I50.33 - Acute on chronic diastolic (congestive) heart failure (4) Essential (primary) hypertension Current Visit: No Status: Acute (5) Cellulitis Current Visit: Yes Status: Acute Qualifiers: Site of cellulitis: extremity Site of cellulitis of extremity: lower extremity Laterality: right Qualified Code(s): L03.115 - Cellulitis of right lower limb (6) Sepsis Current Visit: Yes Status: Acute Qualifiers: Sepsis type: Streptococcus, other Sepsis acute organ dysfunction status: with acute organ dysfunction Severe sepsis acute organ dysfunction type: acute renal failure Severe sepsis shock status: without septic shock Brief History of Present Illness: Patient is an office patient of [employer] [employer] with a history of htn, diastolic chf, sleep apnea. He has come to the office with back pain the last 2 weeks. Was given a short course of meloxicam. He did not have insurance so was trying to make his treatment cost effective. The patient also had an xray ordered. He did not get this. However came to the ER today with back pain. Was hypoxic and found to have pleural effusion. His creatine was elevated to 4.79. Started on bipap as well. He has some mild cellulitis on his left leg. Hospital Course: patient was admitted for heart failure and renal failure. Started on dialysis with Dr. Pina. He has slow improvement of his sfluids. The patient had a tunnelling catheter placed. Was found to have MSSA. Had 9 days of iv antibotics. Will send him home on levaquin. Will have him follow up with Myself and Dr. Sandoval. hopefully his kidney function recovers and we can stop dialysis in the future. Vital Signs/Physical Exam: Temp Pulse Resp BP Pulse Ox 97.4 F 101 H 18 115/58 L 97 07/08/23 11:59 07/08/23 11:59 07/08/23 11:59 07/08/23 11:59 07/08/23 11:59 General: Alert, In no apparent distress HEENT: Atraumatic, PERRLA, EOMI Neck: Supple, JVD not distended Respiratory: Clear to auscultation bilaterally, Normal air movement Cardiovascular: Regular rate/rhythm, Normal S1 S2 Gastrointestinal: Normal bowel sounds, No tenderness Musculoskeletal: No tenderness Integumentary: No rashes Neurological: Normal speech, Normal tone, Normal affect Lymphatics: No axilla or inguinal lymphadenopathy Laboratory Data at Discharge: WBC 13.90 thou/uL (4.3-10.9) H 07/08/23 07:46 Hgb 7.5 g/dL (13.6-17.9) L 07/08/23 07:46 Hct 24.7 % (39.6-49.0) L 07/08/23 07:46 Plt Count 485 thou/uL (152-406) H 07/08/23 07:46 PT 18.5 SECONDS (9.5-12.5) H 06/29/23 07:50 INR 1.71 06/29/23 07:50 APTT 29.8 SECONDS (24.3-36.9) 06/29/23 07:50 Sodium 128 mEq/L (136-145) L 07/08/23 07:46 Potassium 4.4 mEq/L (3.5-5.1) 07/08/23 07:46 BUN 79 mg/dL (7-18) H 07/08/23 07:46 Creatinine 1.65 mg/dL (0.70-1.30) H 07/08/23 07:46 Glucose 119 mg/dL (74-106) H 07/08/23 07:46 Uric Acid 14.3 mg/dL (3.5-7.2) H 07/04/23 07:55 Magnesium 2.2 mg/dL (1.6-2.4) 07/03/23 04:32 Total Bilirubin 0.9 mg/dL (0.2-1.0) 07/08/23 07:46 AST 29 U/L (15-37) 07/08/23 07:46 ALT 21 U/L (16-61) 07/08/23 07:46 Alkaline Phosphatase 105 U/L (45-117) 07/08/23 07:46 Home Medications: Amlodipine Besylate/Benazepril [Amlodipine-Benazepril 5-20 mg] 1 cap PO DAILY 09/22/22 Carvedilol [Coreg] 12.5 mg PO BID 09/22/22 Chlorthalidone 1 tab PO DAILY 09/22/22 Followup: Fab Louise MD [Primary Care Provider] - Time spent managing pt's care (in minutes): 30
--- NOTE | 2023-07-08 12:36 | PN ---
Date of Progress Note: 07/08/2023 Subjective: The patient was admitted to the hospital with acute kidney injury secondary to cardiorenal. The patient started on dialysis. The patient dialysis dependent. The patient responding very well, currently started to have better urine output, but still oliguric. Physical Examination: Vital Signs: Blood pressure 115/58, pulse of 101, afebrile. The patient had urine output of 700 yesterday, ultrafiltration of 2800. Chest: Crackles bilateral. Heart: S1, S2. Systolic murmur. Abdomen: Soft, nontender. Extremities: +2 edema. Neuro: Alert. No focality. Laboratory Data: Hemoglobin 7.5. Sodium 128, potassium 4.4, bicarb 23, BUN 79, creatinine 1.6. GFR 51. This is after dialysis. Current Medications: The patient on include: 1. Midodrine. 2. Levofloxacin. 3. Epogen. 4. IV iron. 5. Carvedilol 3.125. 6. Lasix 40 t.i.d. Assessment And Plan: 1. Acute kidney injury secondary to cardiorenal, oliguric. Currently end- stage renal, dialysis dependent. We will continue dialysis. We will follow up recovery. We will arrange for dialysis tomorrow. 2. Hypertension, controlled. Currently blood pressure on the lower side. Keep using midodrine. 3. Anasarca secondary to cardiorenal as above. 4. Hyponatremia, dilutional. Will be corrected with dialysis. 5. Iron deficiency anemia, anemia of chronic kidney disease. Continue IV iron. Continue SURINDER. Time spent examining the patient [id number], reviewing data, lab and radiology, placing order, discussing the case with the patient, discussing the case with the pressure steamer tender including hospitalist and nursing staff with the dialysis nurse more than 35 minutes MARYAN Voice ID: [id number] Report ID: [id number] KATHRYN
[2023-07-09 06:20] LABS: Absolute Basophils 0.1 K/uL (0-0.5); Absolute Eosinophils 0.1 K/uL (0-0.5); Absolute Lymphocytes (CBC) 0.7 K/uL (0.7-4.9); Absolute Monocytes 2.1 K/uL (0.1-1.3); Eosinophils % 0.8 % (0-4.4); Hemoglobin 7.5 g/dL (13.6-17.9); Lymphocytes % 5.5 % (15.3-44.8); MCH 24.5 pg (27.0-35.0); MCHC 31.1 g/dL (32.0-36.0); MCV 78.7 fL (80-100); MPV 9.4 fL (7.6-11.3); Monocytes % 16.2 % (3.3-12.3); Neutrophils % 76.5 % (41.7-73.7); Nucleated Red Blood Cells % 0.1 % (0-0); Platelets 557 thou/uL (152-406); RBC Red Blood Cell Count 3.05 M/uL (4.33-5.43); Red Cell Distribution Width 18.9 % (12.1-15.2)
[2023-07-09 06:29] LABS: Albumin 2.7 g/dL (3.4-5.0); Albumin/Globulin Ratio 0.5 (1.1-1.8); Bilirubin Total 0.6 mg/dL (0.2-1.0); Globulin 5.9 g/dL (2.3-3.5); Protein, Total 8.6 g/dL (6.4-8.2)
--- NOTE | 2023-07-09 12:41 | P.PN ---
Subjective Date of Service: 07/09/23 Primary Care Provider: Aspen Chief Complaint: Acute diastolic chf with renal failure Subjective: New changes (patient is urinating. He cannot sit up on his own. Has anemia.) Review of Systems 10-point ROS is otherwise unremarkable General: Weakness Physical Examination - Vital Signs Temperature: 97.6 F Blood Pressure: 108/63 Pulse: 100 Respirations: 20 Pulse Ox (%): 99 - Physical Exam General: Alert, In no apparent distress HEENT: Atraumatic, PERRLA, EOMI Neck: Supple, JVD not distended Respiratory: Clear to auscultation bilaterally, Normal air movement Cardiovascular: Regular rate/rhythm, Normal S1 S2 Gastrointestinal: Normal bowel sounds, No tenderness Musculoskeletal: No tenderness Integumentary: No rashes Neurological: Normal speech, Normal tone, Normal affect Lymphatics: No axilla or inguinal lymphadenopathy - Studies Medications List Reviewed: Yes Assessment And Plan - Current Problems (Diagnosis) (1) Severe protein-energy malnutrition Current Visit: Yes Status: Acute Plan: as he lives alone and has difficulty sitting up. Discharge wll be very hard. Will try a few days of therapy. Consult social work to see if he can be placed. However he currently does not have insurance. (2) ESRD (end stage renal disease) Current Visit: Yes Status: Chronic Plan: will need to set up out patient dialysis with Dr. Sandoval. Consult Dr. Hess for a tunnelling catheter 11/[address] a tunnelling catheter later today with Dr. Hess (3) Obstructive sleep apnea (adult) (pediatric) Current Visit: No Status: Acute Plan: Patient has not been using the cpap per respiratoy. discussed with him for 10min. Without CPAP his heart failure will worsen. Per my nephrology Colleagues. there is a high morality with patients with both chf and esrd. So compliance with cpap will lower his mortality. (4) Acute exacerbation of CHF (congestive heart failure) Current Visit: No Status: Acute Plan: will give him one dose of lasix. Continue bipap and will admit the patient to the icu. Will check serial troponins and consult to Dr. Salinas/Melanie. 5.18 Will restart the patients carvedilol. At a lower dose however Qualifiers: Heart failure type: diastolic Qualified Code(s): I50.33 - Acute on chronic diastolic (congestive) heart failure (5) Essential (primary) hypertension Current Visit: No Status: Acute Plan: He is very labile in the ER. going from 140/100 to 96/60's Will hold his carvedilol(12.5Mg) and amlodipine-benzapril((5-20) and chlorthalidone 50mg Will use prn hydralazine (6) Cellulitis Current Visit: Yes Status: Acute Plan: mild. Will start him on po amox-clauvinate as to not increase fluids in the patient Qualifiers: Site of cellulitis: extremity Site of cellulitis of extremity: lower extremity Laterality: right Qualified Code(s): L03.115 - Cellulitis of right lower limb (7) Sepsis Current Visit: Yes Status: Acute Plan: continue vancomycin. will let pharmacy adjust the dosage. 06/30 multidrug sensitive Will switch to levaquin Qualifiers: Sepsis type: Streptococcus, other Sepsis acute organ dysfunction status: with acute organ dysfunction Severe sepsis acute organ dysfunction type: acute renal failure Severe sepsis shock status: without septic shock (8) Anemia Current Visit: Yes Status: Acute Plan: will talk to Nephrology. May need a transfusion before discharge. Qualifiers: Anemia type: due to chronic kidney disease Chronic kidney disease stage: on chronic dialysis Qualified Code(s): N18.6 - End stage renal disease; D63.1 - Anemia in chronic kidney disease; Z99.2 - Dependence on renal dialysis Discharge Plan: Home Plan to discharge in: Greater than 2 days - Code Status/Comfort Care Code Status Assessed: No Physician Review: Patient Assessed, Agree with Above Assessment and Plan Critical Care: No Time Spent Managing PTS Care (In Minutes): 20
--- NOTE | 2023-07-09 22:33 | PN ---
Date of Progress Note: 07/09/2023 Chief Complaint: Acute on chronic kidney injury, accelerated chronic kidney disease. History Of Present Illness: The patient was admitted to ICU because of anasarca, shortness of breath , hypoxemic respiratory failure. The patient was found to have acute kidney injury with oliguric uri ne output and due to severe hyperazotemia, fluid overload, and hypoxemic respiratory failure in setti ng of congestive heart failure exacerbation, the patient was started on dialysis to obtain negative f luid balance and to control azotemia. The patient remained fluid overloaded and he has anasarca seco ndary to cardiorenal syndrome. Urine output has not improved significantly. The patient remains octavia lysis dependent. Review of Systems: Denies chest pain, palpitation. Physical Examination: Lungs: Crackles bilaterally at bases. Heart: S1, S2. 2/6 systolic murmur. Abdomen: Soft, benign, nontender, obese. Extremities: 2+ edema in lower extremities. Lab Work: Sodium 128, potassium is 4.4, bicarbonate 23, BUN 79, creatinine 1.6. Lab work was obtain ed after dialysis. Today, blood work is reevaluated and shows sodium 127, potassium 4.0, chloride 91 , CO2 25, BUN 92, creatinine 1.7, and glucose 131, albumin 2.7, total protein is 8.6. Immunofixation electrophoresis shows normal pattern. MERARY screen negative. Double-stranded DNA less than 1. Anti- PR3 less than 1, normal. Anti-Apo less than 1, normal. Hepatitis B S antigen, nonreactive. Hepatit is C nonreactive. Impression And Plan: 1.Patient has severe acute kidney injury. Renal function has not improved significantly. There is high BUN/creatinine ratio secondary to cardiorenal syndrome. Patient has anasarca, hyponatremia due to dilutional effect of fluid overload and congestive heart failure. Patient has severe cardiorenal syndrome. He remains borderline oliguric and he remains dialysis dependent. Currently, he has end-s tage renal disease and dialysis will be done 3 times per week. Next dialysis is scheduled for tomorr ow. The patient is on blood pressure medication, although blood pressure medication were stopped due to borderline hypotension and currently he is on midodrine to prevent intradialytic hypotension. 2.Anasarca secondary to cardiorenal syndrome. Workup was done to check for any evidence for glomeru lonephritis and monoclonal gammopathy of unknown significance. 3.Hyponatremia, dilutional. Continue low-sodium diet and p.o. fluid restriction. 4.Iron-deficiency anemia due to chronic kidney disease. Continue IV iron and continue SURINDER. EB/MODL Voice ID: [id number] Report ID: [id number]
[2023-07-10 07:05] LABS: Absolute Basophils 0.1 K/uL (0-0.5); Absolute Eosinophils 0.1 K/uL (0-0.5); Absolute Lymphocytes (CBC) 0.6 K/uL (0.7-4.9); Absolute Neutrophil 9.5 K/uL (1.8-8.0); Basophils % 1.2 % (0-1.3); Eosinophils % 1.1 % (0-4.4); Hematocrit 23.9 % (39.6-49.0); Hemoglobin 7.5 g/dL (13.6-17.9); Lymphocytes % 4.6 % (15.3-44.8); MCH 24.8 pg (27.0-35.0); MCHC 31.3 g/dL (32.0-36.0); MCV 79.3 fL (80-100); MPV 9.3 fL (7.6-11.3); Monocytes % 15.9 % (3.3-12.3); Neutrophils % 77.2 % (41.7-73.7); Nucleated RBC Absolute Count 0.1 (0-0); Nucleated Red Blood Cells % 0.5 % (0-0); Platelets 574 thou/uL (152-406); RBC Red Blood Cell Count 3.02 M/uL (4.33-5.43); Red Cell Distribution Width 18.8 % (12.1-15.2)
[2023-07-10 07:28] LABS: Albumin 2.7 g/dL (3.4-5.0); Albumin/Globulin Ratio 0.5 (1.1-1.8); Anion Gap 14.6 mEq/L (5.0-15.0); Bilirubin Total 0.6 mg/dL (0.2-1.0); Potassium 3.6 mEq/L (3.5-5.1); Protein, Total 8.7 g/dL (6.4-8.2)
--- NOTE | 2023-07-10 08:17 | P.PN ---
Subjective Date of Service: 07/10/23 Primary Care Provider: Aspen Chief Complaint: Acute diastolic chf with renal failure Subjective: No new changes Review of Systems 10-point ROS is otherwise unremarkable Physical Examination - Vital Signs Temperature: 97.0 F Blood Pressure: 115/61 Pulse: 99 Respirations: 20 Pulse Ox (%): 98 - Physical Exam General: Alert, In no apparent distress HEENT: Atraumatic, PERRLA, EOMI Neck: Supple, JVD not distended Respiratory: Clear to auscultation bilaterally, Normal air movement Cardiovascular: Regular rate/rhythm, Normal S1 S2 Gastrointestinal: Normal bowel sounds, No tenderness Musculoskeletal: No tenderness Integumentary: No rashes Neurological: Normal speech, Normal tone, Normal affect Lymphatics: No axilla or inguinal lymphadenopathy - Studies Medications List Reviewed: Yes Assessment And Plan - Current Problems (Diagnosis) (1) Severe protein-energy malnutrition Current Visit: Yes Status: Acute Plan: as he lives alone and has difficulty sitting up. Discharge wll be very hard. Will try a few days of therapy. Consult social work to see if he can be placed. However he currently does not have insurance. (2) ESRD (end stage renal disease) Current Visit: Yes Status: Chronic Plan: will need to set up out patient dialysis with Dr. Sandoval. Consult Dr. Hess for a tunnelling catheter 11/[address] a tunnelling catheter later today with Dr. Hess (3) Obstructive sleep apnea (adult) (pediatric) Current Visit: No Status: Acute Plan: Patient has not been using the cpap per respiratoy. discussed with him for 10min. Without CPAP his heart failure will worsen. Per my nephrology Col leagues. there is a high morality with patients with both chf and esrd. So compliance with cpap will lower his mortality. (4) Acute exacerbation of CHF (congestive heart failure) Current Visit: No Status: Acute Plan: will give him one dose of lasix. Continue bipap and will admit the patient to the icu. Will check serial troponins and consult to Dr. Salinas/Melanie. 06.29 Will restart the patients carvedilol. At a lower dose however Qualifiers: Heart failure type: diastolic Qualified Code(s): I50.33 - Acute on chronic diastolic (congestive) heart failure (5) Essential (primary) hypertension Current Visit: No Status: Acute Plan: He is very labile in the ER. going from 140/100 to 96/60's Will hold his carvedilol(12.5Mg) and amlodipine-benzapril((5-20) and chlorthalidone 50mg Will use prn hydralazine (6) Cellulitis Current Visit: Yes Status: Acute Plan: mild. Will start him on po amox-clauvinate as to not increase fluids in the patient Qualifiers: Site of cellulitis: extremity Site of cellulitis of extremity: lower extremity Laterality: right Qualified Code(s): L03.115 - Cellulitis of right lower limb (7) Sepsis Current Visit: Yes Status: Acute Plan: continue vancomycin. will let pharmacy adjust the dosage. 06/30 multidrug sensitive Will switch to levaquin Qualifiers: Sepsis type: Streptococcus, other Sepsis acute organ dysfunction status: with acute organ dysfunction Severe sepsis acute organ dysfunction type: acute renal failure Severe sepsis shock status: without septic shock (8) Anemia Current Visit: Yes Status: Acute Plan: will talk to Nephrology. May need a transfusion before discharge. Qualifiers: Anemia type: due to chronic kidney disease Chronic kidney disease stage: on chronic dialysis Qualified Code(s): N18.6 - End stage renal disease; D63.1 - Anemia in chronic kidney disease; Z99.2 - Dependence on renal dialysis Discharge Plan: Home Plan to discharge in: 48 Hours - Code Status/Comfort Care Code Status Assessed: No Physician Review: Patient Assessed, Agree with Above Assessment and Plan Critical Care: No Time Spent Managing PTS Care (In Minutes): 20
[2023-07-10] MEDS: POTASSIUM CL SA 10 MEQ TAB PO ONE (10:53)
[2023-07-10] MEDS ORDERED: KCL 20 MEQ/100 mL IVPB 20 MEQ/100 ML BAG IV SCH (11:00)
--- NOTE | 2023-07-10 14:02 | PN ---
Date of Progress Note: 07/10/2023 Subjective: The patient was admitted to the hospital with acute kidney injury secondary to cardiorenal. The patient started on dialysis for metabolic and fluid control. The patient started showing some recovery. The patient's last dialysis was Sunday, skipped dialysis yesterday. Physical Examination: Vital Signs: Blood pressure 115/61, pulse of 99, afebrile. The patient had good urine output of 1 L. Chest: Faint rales bilateral. Heart: S1-S2 regular. Abdomen: Soft, nontender. Extremities: Plus edema. Neuro: Alert. No focality. Laboratory Data: Hemoglobin 7.5. Sodium 126, potassium 3.6, bicarb 26, BUN 80, creatinine 1.4, GFR of 62. Current Medications: The patient on include; 1. Midodrine. 2. Levofloxacin. 3. Epogen. 4. IV iron. 5. Hydralazine. 6. Lasix 40 t.i.d. Assessment And Plan: 1. Acute kidney injury secondary to cardiorenal, still on the over volume side, nonoliguric. I am going to hold the dialysis and we will continue diuresis and we will monitor. 2. Iron deficiency anemia. Continue IV iron. 3. Hyponatremia, dilutional. Continue diuresis. 4. Hypokalemia. We will supplement. 5. Congestive heart failure with exacerbation as above. Time spent examining the patient [id number], reviewing data, lab and radiology, placing order, discussing the case with the patient, discussing the case with the environmental field team member including hospitalist and nursing staff with the dialysis nurse more than 35 minutes MARYAN Voice ID: [id number] Report ID: [id number] MTDMonica
[2023-07-10] MEDS ORDERED: MAGNES/ALUMIN/SIMET 30ML UCUP PO PRN (19:55)
[2023-07-10] MEDS: PANTOPRAZOLE 40MG TABLET PO SCH (20:28)
[2023-07-10] MEDS: MAGNES/ALUMIN/SIMET 30ML UCUP PO PRN (20:28)
--- NOTE | 2023-07-11 09:12 | P.PN ---
Subjective Date of Service: 07/11/23 Primary Care Provider: Aspen Chief Complaint: Acute diastolic chf with renal failure Subjective: No new changes Review of Systems 10-point ROS is otherwise unremarkable General: Weakness Physical Examination - Vital Signs Temperature: 97 F Blood Pressure: 113/60 Pulse: 95 Respirations: 18 Pulse Ox (%): 94 - Physical Exam General: Alert, In no apparent distress HEENT: Atraumatic, PERRLA, EOMI Neck: Supple, JVD not distended Respiratory: Clear to auscultation bilaterally, Normal air movement Cardiovascular: Regular rate/rhythm, Normal S1 S2 Gastrointestinal: Normal bowel sounds, No tenderness Musculoskeletal: No tenderness Integumentary: No rashes Neurological: Normal speech, Normal tone, Normal affect Lymphatics: No axilla or inguinal lymphadenopathy - Studies Medications List Reviewed: Yes Assessment And Plan - Current Problems (Diagnosis) (1) Severe protein-energy malnutrition Current Visit: Yes Status: Acute Plan: as he lives alone and has difficulty sitting up. Discharge wll be very hard. Will try a few days of therapy. Consult social work to see if he can be placed. However he currently does not have insurance. (2) ESRD (end stage renal disease) Current Visit: Yes Status: Chronic Plan: will need to set up out patient dialysis with Dr. Sandoval. Consult Dr. Hess for a tunnelling catheter 07.10 patient has not had dialysis since this weekend. His creatine is improving and he is making urine. May not need halfway dialysis (3) Obstructive sleep apnea (adult) (pediatric) Current Visit: No Status: Acute Plan: Patient has not been using the cpap per respiratoy. discussed with him for 10min. Without CPAP his heart failure will worsen. Per my nephrology Colleagues. there is a high morality with patients with both chf and esrd. So compliance with cpap will lower his mortality. (4) Acute exacerbation of CHF (congestive heart failure) Current Visit: No Status: Acute Plan: will give him one dose of lasix. Continue bipap and will admit the patient to the icu. Will check serial troponins and consult to Dr. Salinas/Melanie. 06.29 Will restart the patients carvedilol. At a lower dose however Qualifiers: Heart failure type: diastolic Qualified Code(s): I50.33 - Acute on chronic diastolic (congestive) heart failure (5) Essential (primary) hypertension Current Visit: No Status: Acute Plan: He is very labile in the ER. going from 140/100 to 96/60's Will hold his carvedilol(12.5Mg) and amlodipine-benzapril((5-20) and chlorthalidone 50mg Will use prn hydralazine (6) Cellulitis Current Visit: Yes Status: Acute Plan: mild. Will start him on po amox-clauvinate as to not increase fluids in the patient Qualifiers: Site of cellulitis: extremity Site of cellulitis of extremity: lower extremity Laterality: right Qualified Code(s): L03.115 - Cellulitis of right lower limb (7) Sepsis Current Visit: Yes Status: Acute Plan: continue vancomycin. will let pharmacy adjust the dosage. 06/30 multidrug sensitive Will switch to levaquin Qualifiers: Sepsis type: Streptococcus, other Sepsis acute organ dysfunction status: with acute organ dysfunction Severe sepsis acute organ dysfunction type: acute renal failure Severe sepsis shock status: without septic shock (8) Anemia Current Visit: Yes Status: Acute Plan: will talk to Nephrology. May need a transfusion before discharge. Qualifiers: Anemia type: due to chronic kidney disease Chronic kidney disease stage: on chronic dialysis Qualified Code(s): N18.6 - End stage renal disease; D63.1 - Anemia in chronic kidney disease; Z99.2 - Dependence on renal dialysis Discharge Plan: Home Plan to discharge in: 24 Hours - Code Status/Comfort Care Code Status Assessed: No Physician Review: Patient Assessed, Agree with Above Assessment and Plan Critical Care: No Time Spent Managing PTS Care (In Minutes): 20
[2023-07-11 11:20] LABS: Anion Gap 10.9 mEq/L (5.0-15.0); Potassium 3.9 mEq/L (3.5-5.1)
--- NOTE | 2023-07-11 11:30 | PN ---
Date of Progress Note: 07/11/2023 Subjective: The patient was admitted to the hospital with cardiorenal syndrome, overvolume. Patient required dialysis for fluid and metabolic clearance. Patient started showing recovery. Last dialysis was Sunday. The patient had good urine output. Objective: Vital Signs: Blood pressure 113/60, pulse of 95, afebrile. Patient had urine output of 1 L. Chest: Decreased entry, bilateral base. Heart: S1, S2. Regular. Abdomen: Soft, nontender. Extremity: Plus edema. Neurologic: Alert. Sleepy. Laboratory Data: Hemoglobin 7.5. Sodium 126, potassium 3.6, bicarb 26, BUN 18, creatinine 1.4, calcium 10. Current Medications: The patient on, it includes levofloxacin, midodrine, IV iron, carvedilol 3.125, Lasix 40 t.i.d., KCl. Assessment And Plan: 1. Acute kidney injury secondary to cardiorenal, nonoliguric, started to be normal volume. I am going to keep holding the dialysis for the time being. We will follow up lab today. If kidney function continued to improve, we will remove the TDC and we will follow up. 2. Hyponatremia, dilutional. We will supplement and we will continue diuresis. 3. Hypokalemia. We will supplement. 4. Cardiorenal. Continue diuresis. Time spent examining the patient [id number], reviewing data, lab and radiology, placing order, discussing the case with the patient, discussing the case with the hat steamer including hospitalist and nursing staff with the dialysis nurse more than 35 minutes MARYAN Voice ID: [id number] Report ID: [id number] KATHRYN
[2023-07-11] MEDS: ACETAMINOPHEN 500 MG TAB PO PRN (21:17)
[2023-07-12 04:18] LABS: Albumin 2.7 g/dL (3.4-5.0); Anion Gap 12.1 mEq/L (5.0-15.0); Phosphorus 4.2 mg/dL (2.5-4.9); Potassium 3.1 mEq/L (3.5-5.1)
--- NOTE | 2023-07-12 08:45 | P.PN ---
Subjective Date of Service: 07/12/23 Primary Care Provider: Aspen Chief Complaint: Acute diastolic chf with renal failure Subjective: Improving (sitting in chair. Walked 50 feet with assistance yesterday. He gave permission to speak with his sister) Review of Systems 10-point ROS is otherwise unremarkable Musculoskeletal: Arm Pain (swelling of the upper extremities) Physical Examination - Vital Signs Temperature: 97.8 F Blood Pressure: 104/53 Pulse: 96 Respirations: 19 Pulse Ox (%): 95 - Physical Exam General: Alert, In no apparent distress HEENT: Atraumatic, PERRLA, EOMI Neck: Supple, JVD not distended Respiratory: Clear to auscultation bilaterally, Normal air movement Cardiovascular: Regular rate/rhythm, Normal S1 S2 Gastrointestinal: Normal bowel sounds, No tenderness Musculoskeletal: Swelling (bilateral upper extremities) Integumentary: No rashes Neurological: Normal speech, Normal tone, Normal affect Lymphatics: No axilla or inguinal lymphadenopathy - Studies Medications List Reviewed: Yes Assessment And Plan - Current Problems (Diagnosis) (1) Severe protein-energy malnutrition Current Visit: Yes Status: Acute Plan: as he lives alone and has difficulty sitting up. Discharge wll be very hard. Will try a few days of therapy. Consult social work to see if he can be placed. However he currently does not have insurance. 07/11 Hopefully a day or two more PT will get him strong enough to safely discharge. Currently he is too high a fall risk to send home safely. Would like to see him walk 100 to 200 feet (2) ESRD (end stage renal disease) Current Visit: Yes Status: Chronic Plan: will need to set up out patient dialysis with Dr. Sandoval. Consult Dr. Hess for a tunnelling catheter 07.11 Possible we can remove the catheters if no need for further dialysis (3) Obstructive sleep apnea (adult) (pediatric) Current Visit: No Status: Acute Plan: Patient has not been using the cpap per respiratoy. discussed with him for 10min. Without CPAP his heart failure will worsen. Per my nephrology Colleagues. there is a high morality with patients with both chf and esrd. So compliance with cpap will lower his mortality. (4) Acute exacerbation of CHF (congestive heart failure) Current Visit: No Status: Acute Plan: will give him one dose of lasix. Continue bipap and will admit the patient to the icu. Will check serial troponins and consult to Dr. Salinas/Melanie. 06.29 Will restart the patients carvedilol. At a lower dose however Qualifiers: Heart failure type: diastolic Qualified Code(s): I50.33 - Acute on chronic diastolic (congestive) heart failure (5) Essential (primary) hypertension Current Visit: No Status: Acute Plan: He is very labile in the ER. going from 140/100 to 96/60's Will hold his carvedilol(12.5Mg) and amlodipine-benzapril((5-20) and chlorthalidone 50mg Will use prn hydralazine (6) Cellulitis Current Visit: Yes Status: Acute Plan: mild. Will start him on po amox-clauvinate as to not increase fluids in the patient Qualifiers: Site of cellulitis: extremity Site of cellulitis of extremity: lower extremity Laterality: right Qualified Code(s): L03.115 - Cellulitis of right lower limb (7) Sepsis Current Visit: Yes Status: Acute Plan: continue vancomycin. will let pharmacy adjust the dosage. 06/30 multidrug sensitive Will switch to levaquin Qualifiers: Sepsis type: Streptococcus, other Sepsis acute organ dysfunction status: with acute organ dysfunction Severe sepsis acute organ dysfunction type: acute renal failure Severe sepsis shock status: without septic shock (8) Anemia Current Visit: Yes Status: Acute Plan: will talk to Nephrology. May need a transfusion before discharge. Qualifiers: Anemia type: due to chronic kidney disease Chronic kidney disease stage: on chronic dialysis Qualified Code(s): N18.6 - End stage renal disease; D63.1 - Anemia in chronic kidney disease; Z99.2 - Dependence on renal dialysis Discharge Plan: Home Plan to discharge in: 48 Hours - Code Status/Comfort Care Code Status Assessed: No Physician Review: Patient Assessed, Agree with Above Assessment and Plan Critical Care: No Time Spent Managing PTS Care (In Minutes): 20
[2023-07-12] MEDS: POTASSIUM CL SA 10 MEQ TAB PO ONE (14:45)
--- NOTE | 2023-07-12 18:25 | PN ---
Date of Progress Note: 07/12/2023 Subjective: The patient was admitted with acute kidney injury, cardiorenal syndrome. The patient required dialysis. The patient weaned from the dialysis. Last dialysis almost 10 days ago. The patient's kidney function stayed stable. The patient still has significant edema. Objective: Vital Signs: Blood pressure 109/69, pulse of 108. Chest: Crackles, bilateral. Heart: S1, S2. Regular. Abdomen: Soft, nontender. Extremities: +2 edema. Neuro: Alert. No focality. Laboratory Data: Sodium 126, potassium 3.1, bicarb 27, BUN 85, creatinine 1.6, calcium 9.9, phosphorus 4.2, albumin 2.7, hemoglobin 7.5. Current Medications: The patient on, it includes Epogen, midodrine, levofloxacin, IV iron, carvedilol 3.125, Lasix. Assessment And Plan: 1. Acute kidney injury secondary to cardiorenal, nonoliguric. No hyperkalemia. No acidosis. I do not see the need to resume dialysis. We will keep holding dialysis. Consult Surgery for removal of TDC and we will follow up. 2. Hypertension, currently blood pressure on the lower side. Continue to utilize the blood pressure for more diuresis. 3. Hyponatremia secondary to dilutional. We will continue diuresis. 4. Anasarca. We will try to optimize fluid status. We will mobilize fluid with albumin given the condition of the patient and we will follow up. 5. Hypokalemia. We will supplement. Time spent examining the patient [id number], reviewing data, lab and radiology, placing order, discussing the case with the patient, discussing the case with the steam plant operator including hospitalist and nursing staff with the dialysis nurse more than 35 minutes MARYAN Voice ID: [id number] Report ID: [id number] KATHRYN
[2023-07-12] MEDS: ALBUMIN HUMAN 25% 100 ML IV SCH (21:11)
[2023-07-13 07:28] LABS: Anion Gap 11.6 mEq/L (5.0-15.0); Potassium 3.6 mEq/L (3.5-5.1)
--- NOTE | 2023-07-13 08:10 | P.PN ---
Subjective Date of Service: 07/13/23 Primary Care Provider: Aspen Chief Complaint: Acute diastolic chf with renal failure walked approx 200ft pr the patient Review of Systems 10-point ROS is otherwise unremarkable General: Weakness Physical Examination - Vital Signs Temperature: 96.8 F Blood Pressure: 131/76 Pulse: 90 Respirations: 16 Pulse Ox (%): 96 - Physical Exam General: Alert, In no apparent distress HEENT: Atraumatic, PERRLA, EOMI Neck: Supple, JVD not distended Respiratory: Clear to auscultation bilaterally, Normal air movement Cardiovascular: Regular rate/rhythm, Normal S1 S2 Gastrointestinal: Normal bowel sounds, No tenderness Musculoskeletal: No tenderness Integumentary: No rashes Neurological: Normal speech, Normal tone, Normal affect Lymphatics: No axilla or inguinal lymphadenopathy - Studies Medications List Reviewed: Yes Assessment And Plan - Current Problems (Diagnosis) (1) Severe protein-energy malnutrition Current Visit: Yes Status: Acute Plan: as he lives alone and has difficulty sitting up. Discharge wll be very hard. Will try a few days of therapy. Consult social work to see if he can be placed. However he currently does not have insurance. 07/11 Hopefully a day or two more PT will get him strong enough to safely discharge. Currently he is too high a fall risk to send home safely. Would like to see him walk 100 to 200 feet (2) ESRD (end stage renal disease) Current Visit: Yes Status: Resolved Plan: will need to set up out patient dialysis with Dr. Sandoval. Consult Dr. Hess for a tunnelling catheter 07.12 plans to remove the catheter today. (3) Obstructive sleep apnea (adult) (pediatric) Current Visit: No Status: Acute Plan: Patient has not been using the cpap per respiratoy. discussed with him for 10min. Without CPAP his heart failure will worsen. Per my nephrology Colleagues. there is a high morality with patients with both chf and esrd. So compliance with cpap will lower his mortality. Can give him an outpatient script for nasal pillows for his cpap (4) Acute exacerbation of CHF (congestive heart failure) Current Visit: No Status: Acute Plan: will give him one dose of lasix. Continue bipap and will admit the patient to the icu. Will check serial troponins and consult to Dr. Salinas/Melanie. 18 Will restart the patients carvedilol. At a lower dose however Qualifiers: Heart failure type: diastolic Qualified Code(s): I50.33 - Acute on chronic diastolic (congestive) heart failure (5) Essential (primary) hypertension Current Visit: No Status: Acute Plan: He is very labile in the ER. going from 140/100 to 96/60's Will hold his carvedilol(12.5Mg) and amlodipine-benzapril((5-20) and chlorthalidone 50mg Will use prn hydralazine (6) Cellulitis Current Visit: Yes Status: Acute Plan: mild. Will start him on po amox-clauvinate as to not increase fluids in the patient Qualifiers: Site of cellulitis: extremity Site of cellulitis of extremity: lower extremity Laterality: right Qualified Code(s): L03.115 - Cellulitis of right lower limb (7) Sepsis Current Visit: Yes Status: Acute Plan: continue vancomycin. will let pharmacy adjust the dosage. 06/30 multidrug sensitive Will switch to levaquin Qualifiers: Sepsis type: Streptococcus, other Sepsis acute organ dysfunction status: with acute organ dysfunction Severe sepsis acute organ dysfunction type: acute renal failure Severe sepsis shock status: without septic shock (8) Anemia Current Visit: Yes Status: Acute Plan: will talk to Nephrology. May need a transfusion before discharge. Qualifiers: Anemia type: due to chronic kidney disease Chronic kidney disease stage: on chronic dialysis Qualified Code(s): N18.6 - End stage renal disease; D63.1 - Anemia in chronic kidney disease; Z99.2 - Dependence on renal dialysis Discharge Plan: Home Plan to discharge in: 24 Hours - Code Status/Comfort Care Code Status Assessed: No Physician Review: Patient Assessed, Agree with Above Assessment and Plan Critical Care: No Time Spent Managing PTS Care (In Minutes): 20
[2023-07-13] MEDS: PANTOPRAZOLE 40MG TABLET PO SCH (08:28)
[2023-07-13] MEDS: NA CHLORIDE 0.9% 500 ML ONE (11:50)
[2023-07-13] MEDS ORDERED: propofoL 200 MG/20 ML VIAL IV ONE ×2 (11:57→12:46)
[2023-07-13] MEDS ORDERED: LIDOCAINE 1% MPF 5 ML VIAL ONE (11:57)
[2023-07-13] MEDS ORDERED: MIDAZOLAM HCL 2 MG/2 ML INJ ONE (11:57)
[2023-07-13] MEDS ORDERED: FENTANYL CITR 100 MCG/2 ML ONE (11:57)
[2023-07-13] MEDS: CEFAZOLIN SODIUM 1 GM/VIAL ONE (12:48)
[2023-07-13] MEDS: LIDOCAINE HCL/EPINEPHRINE 20 ML MDV ONE (12:51)
--- NOTE | 2023-07-13 13:02 | P.OP ---
Preoperative diagnosis: Return of Renal Function Postoperative diagnosis: Return of Renal Function Primary procedure: Removal of RIGHT Internal Jugular Tunneled Hemodialysis Catheter Secondary procedure: Removal of LEFT Sublcavian Hemodialysis Catheter Anesthesia: MAC + Local Estimated blood loss: <2cc Specimen: catheters for ID only Findings: no infection noted grossly Complications: None Transferred to: Recovery Room Condition: Good
--- NOTE | 2023-07-13 17:31 | P.PN ---
Subjective Date of Service: 07/13/23 Primary Care Provider: Aspen Chief Complaint: Acute diastolic chf with renal failure Subjective: No overnight events TDC removed Cr improving can be discahrged from nephrology point of view General: Awake and alert, obese. Neck: Supple. No elevated JVD. Heart: Regular rate and rhythm. Normal S1, S2. Chest: Decreased air entry to the left side. Abdomen: Soft, nontender. Extremities: tarce edema. Assessment And Plan: #. FREDY required HD now off HD , cr improving avoid NSAID and contrasr renal dose meds #hypervolemic hyponatremia Cont lasix fluid restriction #. Anemia of chronic disease. Monitor H./h #CHF Cont lasix Thanks for allowing me to participate in the patient's care. Total time spent 55 minutes including documentation, reviewing labs, and discussing with the medical team. Physical Examination - Vital Signs Temperature: 97.5 F Blood Pressure: 117/67 Pulse: 102 Respirations: 18 Pulse Ox (%): 99 - Studies Medications List Reviewed: Yes Assessment And Plan Physician Review: Patient Assessed, Agree with Above Assessment and Plan
--- NOTE | 2023-07-13 22:48 | OP ---
Date of Procedure: 07/13/2023 Surgeon: Wayne Hess MD, Preoperative Diagnosis: renal function. Postoperative Diagnosis: renal function. Procedures: 1.Removal of a right internal jugular tunneled hemodialysis catheter. 2.Removal of left subclavian nontunneled temporary hemodialysis catheter. Anesthesia: MAC plus local, 1% lidocaine with epinephrine. Estimated Blood Loss: Less than 2 cc. Specimens: Catheters for ID only. Findings: No infection grossly noted on the catheters. Complications: None. Disposition: The patient is transferred to recovery room in good condition. Procedure In Detail: After informed consent was obtained, patient was brought to the operating room, prepped and draped in the usual sterile fashion. After adequate anesthesia was achieved, sutures we re removed from both sides of the catheters. The right internal jugular and left subclavian catheter s. Right internal jugular was cuffed catheter recently placed and as such, the cuff required minimal dissection circumferentially around with simple blunt dissection of a hemostatic at the infraclavicu lar position. After this was performed, the patient was placed in steep Trendelenburg position. Cat heter was removed at this point. Pressure was held on the neck. At this point, the exit site of the catheter was irrigated and closed with a single interrupted U-stitch of 3-0 nylon with good approxim ation of tissues. A sterile dressing was placed over top. The patient remained in steep Trendelenbu rg position at this point. I then removed the sutures from the left subclavian catheter and removed this while the patient remained in Trendelenburg and then after this was performed, I held pressure i n this area. Similarly, the patient was then brought in the head up position. I placed an irrigatio n in the access site as well and then closed this with a single interrupted 3-[address] erile dressing was placed over top. The patient tolerated the procedure well without incident or com plication, transferred to PACU in good condition. All counts were correct at the end of the case. TK/MODL Voice ID: [id number] Report ID: [id number]
[2023-07-13 23:16] VITALS: O2SAT 98
[2023-07-14 03:15] LABS: Albumin 3.5 g/dL (3.4-5.0); Phosphorus 4.4 mg/dL (2.5-4.9)
[2023-07-14 12:30] VITALS: BP 128/60; TEMP 96.8
--- NOTE | 2023-07-14 12:52 | P.DS ---
Admission Date: 06/29/23 Discharge Date: 07/14/23 Primary Care Provider: Aspen Disposition: ROUTINE DISCHARGE Reason for Admission: Acute diastolic chf with renal failure - Problems (1) Severe protein-energy malnutrition Current Visit: Yes Status: Acute (2) ESRD (end stage renal disease) Current Visit: Yes Status: Resolved (3) Obstructive sleep apnea (adult) (pediatric) Current Visit: No Status: Acute (4) Acute exacerbation of CHF (congestive heart failure) Current Visit: No Status: Acute Qualifiers: Heart failure type: diastolic Qualified Code(s): I50.33 - Acute on chronic diastolic (congestive) heart failure (5) Essential (primary) hypertension Current Visit: No Status: Acute (6) Cellulitis Current Visit: Yes Status: Acute Qualifiers: Site of cellulitis: extremity Site of cellulitis of extremity: lower extremity Laterality: right Qualified Code(s): L03.115 - Cellulitis of right lower limb (7) Sepsis Current Visit: Yes Status: Acute Qualifiers: Sepsis type: Streptococcus, other Sepsis acute organ dysfunction status: with acute organ dysfunction Severe sepsis acute organ dysfunction type: acute renal failure Severe sepsis shock status: without septic shock (8) Anemia Current Visit: Yes Status: Acute Qualifiers: Anemia type: due to chronic kidney disease Chronic kidney disease stage: on chronic dialysis Qualified Code(s): N18.6 - End stage renal disease; D63.1 - Anemia in chronic kidney disease; Z99.2 - Dependence on renal dialysis Brief History of Present Illness: Patient is an office patient of [facility] with a history of htn, diastolic chf, sleep apnea. He has come to the office with back pain the last 2 weeks. Was given a short course of meloxicam. He did not have insurance so was trying to make his treatment cost effective. The patient also had an xray ordered. He did not get this. However came to the ER today with back pain. Was hypoxic and found to have pleural effusion. His creatine was elevated to 4.79. Started on bipap as well. He has some mild cellulitis on his left leg. Hospital Course: patient was admitted for heart failure and renal failure. Started on dialysis with Dr. Pina. He has slow improvement of his sfluids. His renal function also improved. Has not had dialysis in several days. Dr. Oconnor removed the catheters. Will discharge him home. Have him follow up in the office. Will get him a script for nasal pillows to improve his compliance with cpap. This is vital for the improvement of his heart failure. we want to avoid esrd and chf. The combination of which has very high mortality Vital Signs/Physical Exam: Temp Pulse Resp BP Pulse Ox 96.8 F 104 H 17 128/60 98 07/14/23 12:00 07/14/23 12:00 07/14/23 12:00 07/14/23 12:00 07/14/23 12:00 General: Alert, In no apparent distress HEENT: Atraumatic, PERRLA, EOMI Neck: Supple, JVD not distended Respiratory: Clear to auscultation bilaterally, Normal air movement Cardiovascular: Regular rate/rhythm, Normal S1 S2 Gastrointestinal: Normal bowel sounds, No tenderness Musculoskeletal: No tenderness Integumentary: No rashes Neurological: Normal speech, Normal tone, Normal affect Lymphatics: No axilla or inguinal lymphadenopathy Laboratory Data at Discharge: WBC 12.30 thou/uL (4.3-10.9) H 07/10/23 06:40 Hgb 7.5 g/dL (13.6-17.9) L 07/10/23 06:40 Hct 23.9 % (39.6-49.0) L 07/10/23 06:40 Plt Count 574 thou/uL (152-406) H 07/10/23 06:40 PT 18.5 SECONDS (9.5-12.5) H 06/29/23 07:50 INR 1.71 06/29/23 07:50 APTT 29.8 SECONDS (24.3-36.9) 06/29/23 07:50 Sodium 128 mEq/L (136-145) L 07/14/23 02:26 Potassium 3.0 mEq/L (3.5-5.1) L D 07/14/23 02:26 BUN 63 mg/dL (7-18) H 07/14/23 02:26 Creatinine 1.49 mg/dL (0.70-1.30) H 07/14/23 02:26 Glucose 121 mg/dL (74-106) H 07/14/23 02:26 Uric Acid 14.3 mg/dL (3.5-7.2) H 07/04/23 07:55 Phosphorus 4.4 mg/dL (2.5-4.9) 07/14/23 02:26 Magnesium 2.0 mg/dL (1.6-2.4) 07/12/23 09:56 Total Bilirubin 0.6 mg/dL (0.2-1.0) 07/10/23 06:40 AST 28 U/L (15-37) 07/10/23 06:40 ALT 21 U/L (16-61) 07/10/23 06:40 Alkaline Phosphatase 99 U/L (45-117) 07/10/23 06:40 Home Medications: Amlodipine Besylate/Benazepril [Amlodipine-Benazepril 5-20 mg] 1 cap PO DAILY 09/22/22 Carvedilol [Coreg] 12.5 mg PO BID 09/22/22 Chlorthalidone 1 tab PO DAILY 09/22/22 Levofloxacin [Levaquin] 500 mg PO DAILY 5 Days #5 tab 07/08/23 New Medications: Levofloxacin [Levaquin] 500 mg PO DAILY 5 Days #5 tab Physician Discharge Instructions: [facility] appt. on 07/19/2023 at 9:15 am. Diet: AHA Activity: Ad chris Followup: Fab Louise MD [Primary Care Provider] - Physician Review: Patient Assessed, Agree with Above Assessment and Plan Time spent managing pt's care (in minutes): 30
--- NOTE | 2023-07-14 13:39 | P.PN ---
Subjective Date of Service: 07/14/23 Primary Care Provider: Aspen Chief Complaint: Acute diastolic chf with renal failure Subjective: No overnight events Cr improving will replace potassium can be discharged from nephrology point of view General: Awake and alert, obese. Neck: Supple. No elevated JVD. Heart: Regular rate and rhythm. Normal S1, S2. Chest: Decreased air entry to the left side. Abdomen: Soft, nontender. Extremities: tarce edema. Assessment And Plan: #. FREDY required HD now off HD , cr improving avoid NSAID and contrasr renal dose meds #hypervolemic hyponatremia Cont lasix fluid restriction #. Anemia of chronic disease. Monitor H./h #CHF Cont lasix Thanks for allowing me to participate in the patient's care. Total time spent 55 minutes including documentation, reviewing labs, and discussing with the medical team. Physical Examination - Vital Signs Temperature: 96.8 F Blood Pressure: 128/60 Pulse: 104 Respirations: 17 Pulse Ox (%): 98 - Studies Medications List Reviewed: Yes Assessment And Plan Physician Review: Patient Assessed, Agree with Above Assessment and Plan
[2023-07-14] MEDS ORDERED: POTASSIUM 25 MEQ EFFERV TAB PO ONE (14:00)
== END 2023-07-14 13:53 | disposition home or self-care (01) | DRG 871 ==
LOC: SUPCPDRO 07:30 → ER 07:30 → ERHOLD 09:31 → 3RD-ICU 11:35 → 2ND 07-03 16:10
PROVIDERS: ADMIT Internal Medicine; ATTEND Internal Medicine
PROC: 4A033R1 Measurement of Arterial Saturation, Peripheral, Percutaneous Approach (ICD-10-PCS; principal; 2023-06-29)
PROC: 5A0935A Assistance with Respiratory Ventilation, Less than 24 Consecutive Hours, High Flow/Velocity Cannula (ICD-10-PCS; 2023-06-29)
PROC: 5A1D70Z Performance of Urinary Filtration, Intermittent, Less than 6 Hours Per Day (ICD-10-PCS; 2023-06-30)
PROC: 0T9B70Z Drainage of Bladder with Drainage Device, Via Natural or Artificial Opening (ICD-10-PCS; 2023-06-30)
PROC: 0JH63XZ Insertion of Tunneled Vascular Access Device into Chest Subcutaneous Tissue and Fascia, Percutaneous Approach (ICD-10-PCS; 2023-06-30)
PROC: 05H633Z Insertion of Infusion Device into Left Subclavian Vein, Percutaneous Approach (ICD-10-PCS; 2023-06-30)
PROC: 0JH63XZ Insertion of Tunneled Vascular Access Device into Chest Subcutaneous Tissue and Fascia, Percutaneous Approach (ICD-10-PCS; 2023-07-07)
PROC: 02HV33Z Insertion of Infusion Device into Superior Vena Cava, Percutaneous Approach (ICD-10-PCS; 2023-07-07)
PROC: 5A09457 Assistance with Respiratory Ventilation, 24-96 Consecutive Hours, Continuous Positive Airway Pressure (ICD-10-PCS; 2023-07-11)
PROC: 02PY33Z Removal of Infusion Device from Great Vessel, Percutaneous Approach (ICD-10-PCS; 2023-07-13)
PROC: 0JPT0XZ Removal of Tunneled Vascular Access Device from Trunk Subcutaneous Tissue and Fascia, Open Approach (ICD-10-PCS; 2023-07-13)
DX: A41.01 Sepsis due to Methicillin susceptible Staphylococcus aureus (principal); E43 Unspecified severe protein-calorie malnutrition; I50.33 Acute on chronic diastolic (congestive) heart failure; J96.01 Acute respiratory failure with hypoxia; N18.6 End stage renal disease; N17.9 Acute kidney failure, unspecified; L03.115 Cellulitis of right lower limb; E87.1 Hypo-osmolality and hyponatremia; I13.2 Hypertensive heart and chronic kidney disease with heart failure and with stage 5 chronic kidney disease, or end stage renal disease; R65.20 Severe sepsis without septic shock; D63.1 Anemia in chronic kidney disease; D63.8 Anemia in other chronic diseases classified elsewhere; D50.9 Iron deficiency anemia, unspecified; E87.6 Hypokalemia; E78.5 Hyperlipidemia, unspecified; G89.29 Other chronic pain; M54.9 Dorsalgia, unspecified; G47.33 Obstructive sleep apnea (adult) (pediatric); I25.10 Atherosclerotic heart disease of native coronary artery without angina pectoris; R31.29 Other microscopic hematuria; R79.89 Other specified abnormal findings of blood chemistry; Z99.2 Dependence on renal dialysis; Z60.2 Problems related to living alone; Z79.82 Long term (current) use of aspirin; Z79.02 Long term (current) use of antithrombotics/antiplatelets; Z79.899 Other long term (current) drug therapy
CPT/HCPCS: 36415; 36600; 71045; 76000; 76770; 80048; 80053; 80069; 80202; 81001; 82077; 82533; 82570; 82607; 82728; 82805; 82947; 83540; 83605; 83735; 83880; 84156; 84165; 84166; 84443; 84466; 84484; 84550; 85025; 85610; 85730; 86021; 86038; 86160; 86162; 86225; 86334; 86704; 86706; 86803; 87040; 87077; 87086; 87088; 87186; 87205; 87340; 88300; 90935; 93005; 93306; 93971; 94660; 96365; 96367; 96375; 97110; 97116; 97161; 97530; 99285; A4216; C1752; J0690; J0692; J1644; J1940; J2001; J2150; J2250; J2704; J3010; J7030; J7040; J7050; P9047